=== PATIENT | female | born 1935 | race Caucasian/White ===

== ENCOUNTER 2019-03-25 19:05 | Inpatient (IN) ==
[~2019-03-25 19:05] MED LIST: D5% in Water 1,000 ML IVC PRN; Dextrose Gel 15 GM/37.5 ML TUBE PO PRN
[2019-03-25 20:24] LABS: Basophils % 0.3 %; Eosinophils % 0.4 %; Hematocrit 26.3 % (35.3-44.9); Immature Granulocytes % 0.8 % (0-4); Lymphocytes # 1.3 K/mcL (0.6-4.6); Lymphocytes % 12.4 %; Mean Corpuscular HGB Conc 30.4 g/dL (31.6-35.5); Mean Corpuscular Hemoglobin 27.7 pg (28.0-33.3); Mean Platelet Volume 10.5 fL (9.4-12.4); Monocytes # 1.3 K/mcL (0.0-1.3); Monocytes % 11.6 %; Platelet Count 199 K/mcL (140-400); Red Blood Count 2.89 M/mcL (3.82-4.97); Red Cell Distribution Width 14.2 % (11.5-14.5); Segmented Neutrophils % 74.5 %; White Blood Count 10.8 K/mcL (4.3-11.1)
[2019-03-25 20:28] LABS: Bilirubin,Urine Negative (Negative); Blood,Urine Negative (Negative); Clarity,Urine Clear (Clear); Color,Urine Yellow (Yellow); Glucose,Urine (UA) Normal (Normal); Ketones,Urine Negative (Negative); Leukocyte Esterase,Urine Small (Negative); Nitrite,Urine Negative (Negative); PH,Urine 5.5 pH Units (5.0-8.0); Protein,Urine Negative (Neg-Trace); Specific Gravity,Urine 1.019 (1.010-1.025); Urobilinogen,Urine Normal (Normal)
[2019-03-25 20:29] LABS: Bacteria,Urine None Seen per hpf (None-Few); Hyaline Casts,Urine Few per lpf (None-Few); Squamous Epithelial Cell,Urine Many per lpf (None-Few); WBC,Urine 0-3 per hpf (0-3)
[2019-03-25 20:37] LABS: Alanine Aminotransferase 10 Units/L (7-52); Albumin/Globulin Ratio 1.6 (1.1-2.2); Alkaline Phosphatase 70 Units/L (34-104); Aspartate Amino Transferase 13 Units/L (13-39); BUN/Creatinine Ratio 22 (6-26); Bilirubin,Direct 0.1 mg/dL (0.0-0.2); Bilirubin,Indirect 0.3 mg/dL (0.0-1.2); Bilirubin,Total 0.4 mg/dL (0.3-1.0); Blood Urea Nitrogen 38 mg/dL (8-23); Calcium 9.3 mg/dL (8.6-10.3); Carbon Dioxide 25 mEq/L (23-29); Chloride 100 mEq/L (98-107); Globulin 2.5 g/dL (2.4-3.5); Glucose 193 mg/dL (70-105); Lipase 44 Units/L (11-82); Magnesium 1.8 mg/dL (1.6-2.6); Osmolality,Calculated 296 (280-300); Phosphorous 4.1 mg/dL (2.7-4.5); Sodium 136 mEq/L (136-145); Total Protein 6.5 g/dL (6.4-8.9); Troponin I < 0.03 ng/mL (< 0.04); eGFR For African Americans 33 (> 60); eGFR For Non-African Americans 28 (> 60)
--- NOTE | 2019-03-25 20:43 | Emergency Department Note ---
Disposition Clinical Impression: STEPHIE (acute kidney injury) Afib Qualifiers: Atrial fibrillation type: chronic Qualified Code(s): I48.2 - Chronic atrial fibrillation Anemia Qualifiers: Anemia type: unspecified type Qualified Code(s): D64.9 - Anemia, unspecified Chest pain Qualifiers: Chest pain type: unspecified Qualified Code(s): R07.9 - Chest pain, unspecified Disposition: Admitted As Inpatient Condition: Good Referrals: Isabel Fajardo CNP [Primary Care Provider] - Forms: ED Satisfaction Letter Time of Disposition: 20:50 General Adult HPI - General Chief complaint: ED Weakness Stated complaint: weakness Time Seen by Provider: 03/25/19 19:13 Source: patient Limitations: no limitations Nursing Notes Reviewed: Yes Vital Signs Reviewed: Yes - History of Present Illness HPI Narrative: Female patient presenting to return complaining of a generalized weakness. Has a history of an SD with a stent placed. Been going on for around 6 months. Has gotten worse over the past 8 weeks. She does report cough but denies any s hortness of breath does have a history of COPD. Reports occasional chest pain. She states it feels like a pressure in the center of chest. States she always has this pain got a little worse tonight. No history of DVT or PE no history of a fever. Just generalized weakness. States that she feels like her legs might give out on her as well as her knees. Pain Scale: 0 - Related Data Home Medications Medication Instructions Recorded Confirmed Acetaminophen [Tylenol] 650 mg PO Q4HR PRN 04/16/15 05/17/16 Ascorbic Acid [Vitamin C] 500 mg PO DAILY 04/16/15 05/17/16 Aspirin 81 mg PO DAILY 04/16/15 05/17/16 Calcium Carbonate/Vitamin D3 2 tab PO DAILY 04/16/15 05/17/16 [Calcium 600 + D Tablet] Cyanocobalamin (B-12) [Vitamin B12] 1,000 mcg SQ QMONTH 04/16/15 05/17/16 Diltiazem HCl [Cardizem] 240 mg PO DAILY 04/16/15 05/17/16 Duloxetine [Cymbalta] 30 mg PO DAILY 04/16/15 05/17/16 Ferrous Sulfate 325 mg PO Q48H 04/16/15 05/17/16 Magnesium 200 mg PO DAILY 04/16/15 05/17/16 Metoprolol [Lopressor] 25 mg PO BID 04/16/15 05/17/16 Pravastatin Sodium [Pravachol] 40 mg PO DAILY 04/16/15 05/17/16 Warfarin [Coumadin] 1 mg PO DAILY 04/16/15 05/17/16 Warfarin [Coumadin] 2.5 mg PO AD 04/16/15 05/17/16 Zoledronic Acid (Reclast) [Reclast] 5 mg IVPB Q12M 04/16/15 11/17/15 Cholecalciferol (Vitamin D3) 1,000 unit PO DAILY 11/17/15 05/17/16 [Vitamin D] Losartan [Cozaar] 25 mg PO DAILY 11/17/15 05/17/16 Spironolactone 05/17/16 risperiDONE [Risperidone] 0.5 mg PO DAILY 05/17/16 05/17/16 Previous Rx's Medication Instructions Recorded diazePAM [Valium] 2 mg PO TID #10 tablet 09/24/16 predniSONE [PredniSONE] 20 mg PO DAILY #3 tablet 09/24/16 Allergies Allergy/AdvReac Type Severity Reaction Status Date / Time glimepiride [From Amaryl] Allergy See Verified 02/23/19 15:30 Comments gabapentin AdvReac See Verified 02/23/19 15:30 Comments All systems ED: reviewed and negative except as stated. Review of Systems: As Per HPI Constitutional: Denies: fever, chills Cardiovascular: Reports: chest pain (Occasional. Feels like a soreness in her chest. Got worse tonight but now has resolved. Again she states is back to her baseline soreness.). Denies: palpitations Respiratory: Reports: cough. Denies: dyspnea Gastrointestinal: Reports: abdominal pain (Bloating feeling in the upper abdomen constant). Denies: nausea (. Been going on for several years.), vomiting, diarrhea Musculoskeletal: Reports: back pain (Chronic), myalgia (Chronic) Neurological: Reports: weakness Endocrine: Reports: fatigue Past Medical History - Past Medical History Attestation: Yes The following information was validated with the patient. Source: patient Medical history: Reports: atrial fibrillation, COPD, diabetes, fibromyalgia, hypertension, osteoporosis Surgical history: Reports: no surgical history Psychiatric history: Reports: depression - Social History Smoking Status: Former smoker Smokeless Tobacco Status: No Alcohol use: Reports: none Drug use: Reports: none Physical Exam - General Limitations: no limitations General appearance: alert - Head Head exam: atraumatic, normocephalic, normal inspection - Eye Eye exam: Present: normal appearance, PERRL, EOMI - ENT ENT exam: normal exam, normal oropharynx, mucous membranes moist - Neck Neck exam: Present: normal inspection, full ROM, trachea midline - Chest Chest inspection: Present: normal inspection, symmetric chest wall rise - Respiratory Respiratory exam: Present: normal lung sounds bilaterally. Absent: respiratory distress, accessory muscle use - Cardiovascular Cardiovascular exam: Present: bradycardia, irregular rhythm, normal heart sounds - Abdominal Exam Abdominal exam: Present: soft, Non-Tender. Absent: tenderness, distention, guarding, rebound, rigidity, organomegaly, Barros's sign, Rovsing's sign, tenderness at McBurney's Point - Extremities Exam Extremities exam: Present: normal inspection, full ROM, normal capillary refill, other (Myalgias throughout.). Absent: pedal edema - Back Exam Back exam: Present: normal inspection, full ROM. Absent: tenderness - Neurological Exam Neurological exam: Present: alert, oriented X3, other (Alert and oriented 3. Mentating appropriately. Tracks me well. Grossly moving all 4 extremities without weakness.) - Psychiatric Psychiatric exam: Present: normal affect, normal mood - Skin Skin exam: Present: warm, dry, intact, normal color Course Course Narrative: Patient with chronic anemia with anemia that is worse than normal. Did have a positive Hemoccult by her PCP previously. No colonoscopy. Is on Coumadin. Reporting generalized weakness. Reports a cough but no shortness of breath. No history of DVT or PE. States that the symptoms have been going on for 6 months but it has been getting worse. No syncope. No trauma. Has not fallen and struck her head. Did report some chest pain that is resolved at this time. Now saying it is sore on her chest but this is normal for her. Does report a cough consistent with her COPD. No fevers. Patient with a normal troponin. No signs of acute ischemia on EKG. We will admit to the hospital for further evaluation of her anemia A. fib with mild bradycardia but normotensive. - Consultations Consultation #1: Dr Louis accepted Pt in stable condition. Time: 20:51 Vital Signs Temperature 98.0 F 03/25/19 19:06 Pulse Rate 52 03/25/19 19:06 Respiratory Rate 12 03/25/19 19:06 Blood Pressure 162/107 03/25/19 19:06 O2 Sat by Pulse Oximetry 95 03/25/19 19:06 Temperature 98.0 F 03/25/19 19:06 Pulse Rate 52 03/25/19 19:06 Respiratory Rate 12 03/25/19 19:06 Blood Pressure 162/107 03/25/19 19:06 O2 Sat by Pulse Oximetry 95 03/25/19 19:06 Oxygen Delivery Oxygen Delivery Room Air Medical Decision Making - Medical Records Medical records reviewed: Yes I reviewed the patient's medical records. - Lab Data Lab results reviewed: Yes I reviewed the patient's lab results. Result diagrams: 03/25/19 20:04 03/25/19 20:04 Lab Results 03/25/19 03/25/19 03/25/19 Range/Units 20:04 20:04 20:04 WBC 10.8 (4.3-11.1) K/mcL RBC 2.89 L (3.82-4.97) M/mcL Hgb 8.0 L (11.5-15.4) g/dL Hct 26.3 L (35.3-44.9) % MCV 91.0 (83.0-100.0) fL MCH 27.7 L (28.0-33.3) pg MCHC 30.4 L (31.6-35.5) g/dL RDW 14.2 (11.5-14.5) % Plt Count 199 (140-400) K/mcL MPV 10.5 (9.4-12.4) fL Immature Gran % 0.8 (0-4) % Seg Neutrophils % 74.5 % Lymphocytes % 12.4 % Monocytes % 11.6 % Eosinophils % 0.4 % Basophils % 0.3 % Neutrophils # 8.0 (1.6-8.9) K/mcL Lymphocytes # 1.3 (0.6-4.6) K/mcL Monocytes # 1.3 (0.0-1.3) K/mcL Eosinophils # 0.0 (0.0-0.6) K/mcL Basophils # 0.0 (0.0-0.2) K/mcL Sodium 136 (136-145) mEq/L Potassium 4.0 (3.5-5.1) mEq/L Chloride 100 (98-107) mEq/L Carbon Dioxide 25 (23-29) mEq/L BUN 38 H (8-23) mg/dL Creatinine 1.75 H (0.60-1.20) mg/dL Est GFR ( Amer) 33 L (> 60) Est GFR (Non-Af Amer) 28 L (> 60) BUN/Creatinine Ratio 22 (6-26) Glucose 193 H (70-105) mg/dL Calculated Osmolality 296 (280-300) Lactic Acid 2.0 (0.5-2.2) mmol/L Calcium 9.3 (8.6-10.3) mg/dL Phosphorus 4.1 (2.7-4.5) mg/dL Magnesium 1.8 (1.6-2.6) mg/dL Total Bilirubin 0.4 (0.3-1.0) mg/dL Direct Bilirubin 0.1 (0.0-0.2) mg/dL Indirect Bilirubin 0.3 (0.0-1.2) mg/dL AST 13 (13-39) Units/L ALT 10 (7-52) Units/L Alkaline Phosphatase 70 (34-104) Units/L Troponin I < 0.03 (< 0.04) ng/mL B-Natriuretic Peptide (Less than 100) pg/mL Serum Total Protein 6.5 (6.4-8.9) g/dL Albumin 4.0 (3.5-5.7) g/dL Globulin 2.5 (2.4-3.5) g/dL Albumin/Globulin Ratio 1.6 (1.1-2.2) Lipase 44 (11-82) Units/L Urine Color (Yellow) Urine Clarity (Clear) Urine pH (5.0-8.0) pH Units Ur Specific Bly (1.010-1.025) Urine Protein (Neg-Trace) mg/dL Urine Glucose (UA) (Normal) mg/dL Urine Ketones (Negative) mg/dL Urine Blood (Negative) Urine Nitrite (Negative) Urine Bilirubin (Negative) Urine Urobilinogen (Normal) mg/dL Ur Leukocyte Esterase (Negative) Urine Microscopic RBC (0-3) per hpf Urine Microscopic WBC (0-3) per hpf Ur Squamous Epith Cells (None-Few) per lpf Urine Bacteria (None-Few) per hpf Hyaline Casts (None-Few) per lpf Ur Culture Indicated? (NO) 03/25/19 03/25/19 Range/Units 20:04 20:19 WBC (4.3-11.1) K/mcL RBC (3.82-4.97) M/mcL Hgb (11.5-15.4) g/dL Hct (35.3-44.9) % MCV (83.0-100.0) fL MCH (28.0-33.3) pg MCHC (31.6-35.5) g/dL RDW (11.5-14.5) % Plt Count (140-400) K/mcL MPV (9.4-12.4) fL Immature Gran % (0-4) % Seg Neutrophils % % Lymphocytes % % Monocytes % % Eosinophils % % Basophils % % Neutrophils # (1.6-8.9) K/mcL Lymphocytes # (0.6-4.6) K/mcL Monocytes # (0.0-1.3) K/mcL Eosinophils # (0.0-0.6) K/mcL Basophils # (0.0-0.2) K/mcL Sodium (136-145) mEq/L Potassium (3.5-5.1) mEq/L Chloride (98-107) mEq/L Carbon Dioxide (23-29) mEq/L BUN (8-23) mg/dL Creatinine (0.60-1.20) mg/dL Est GFR ( Amer) (> 60) Est GFR (Non-Af Amer) (> 60) BUN/Creatinine Ratio (6-26) Glucose (70-105) mg/dL Calculated Osmolality (280-300) Lactic Acid (0.5-2.2) mmol/L Calcium (8.6-10.3) mg/dL Phosphorus (2.7-4.5) mg/dL Magnesium (1.6-2.6) mg/dL Total Bilirubin (0.3-1.0) mg/dL Direct Bilirubin (0.0-0.2) mg/dL Indirect Bilirubin (0.0-1.2) mg/dL AST (13-39) Units/L ALT (7-52) Units/L Alkaline Phosphatase (34-104) Units/L Troponin I (< 0.04) ng/mL B-Natriuretic Peptide 428 H (Less than 100) pg/mL Serum Total Protein (6.4-8.9) g/dL Albumin (3.5-5.7) g/dL Globulin (2.4-3.5) g/dL Albumin/Globulin Ratio (1.1-2.2) Lipase (11-82) Units/L Urine Color Yellow (Yellow) Urine Clarity Clear (Clear) Urine pH 5.5 (5.0-8.0) pH Units Ur Specific Bly 1.019 (1.010-1.025) Urine Protein Negative (Neg-Trace) mg/dL Urine Glucose (UA) Normal (Normal) mg/dL Urine Ketones Negative (Negative) mg/dL Urine Blood Negative (Negative) Urine Nitrite Negative (Negative) Urine Bilirubin Negative (Negative) Urine Urobilinogen Normal (Normal) mg/dL Ur Leukocyte Esterase Small H (Negative) Urine Microscopic RBC 3-5 H (0-3) per hpf Urine Microscopic WBC 0-3 (0-3) per hpf Ur Squamous Epith Cells Many H (None-Few) per lpf Urine Bacteria None Seen (None-Few) per hpf Hyaline Casts Few (None-Few) per lpf Ur Culture Indicated? YES A (NO) - Radiology Data Radiology results reviewed: Yes I reviewed the patient's radiology results. - EKG Data EKG #1 EKG attestation: Yes I reviewed and interpreted this EKG. EKG results narrative: A. fib at a rate of 43. MI interval was not measured. QRS duration is 88. QT is 451. QTC is 382. No signs of acute ischemia. Good R-wave progression. No significant change from previous EKG dated 09/24/2016.
[2019-03-25] MEDS ORDERED: 0.9 % Sodium Chloride 1,000 ML IVC SCH (21:00)
--- NOTE | 2019-03-25 21:00 | Internal Med History&Physical ---
<Fortino Morton - Last Filed: 03/26/19 04:19> Date of Encounter: 03/26/19 Time of Encounter: 21:54 Internal Medicine - H&P: HPI Chief complaint: weakess Admitted From: Emergency Dept Plans for Post Hospital Care: Home History of present illness: Ms. Singer is a 83 year old female with past medical history of atrial fibrillation, COPD, diabetes, fibromyalgia, hypertension, osteoporosis, polymyalgia rheumatica presents emergency department with complaint of weakness. Patient states that she has been chronically weak for approximately the past 6 months has been progressively worsening in the past weeks. Patient states symptoms are mainly present on exertion with no exacerbating or relieving fact ors. Weakness is diffuse with no focal deficits. She does get around with a cane. She has never experienced symptoms like this in the past. Patient denies any symptoms of fevers, chills, chest pains although does admit to some dyspnea on exertion. She has home oxygen dependent with 2 L at night for her COPD. She states her oxygen does help her. She has a little bit of nausea without vomitin g, denies urinary symptoms. She also states that bowel movements have been normal for the past couple months. She was instructed to take iron supplementation however did not tolerate this due to GI upset. She states while she was taking it, she did not notice dark stools but since taking herself off iron approximately 4 weeks ago she has noticed a liquid yellow color. She also admits to some dizziness, lightheadedness, particularly after bowel movements. She also states that she has had episodes where she feels like she might pass out but is never lost consciousness and did not hit her head. She does take Coumadin for her atrial fibrillation as well as aspirin and prednisone. In the emergency room, vital signs were significant for a heart rate of 52, respiratory rate 12. Per family, patient's heart rate was low when EMS arrived in the 40s. Blood pressure stable at 162/107 she was tolerating 95% oxygen on room air. Lab results were significant for a hemoglobin of 8.0 which is decreased from baseline around 10. INR was therapeutic at 2.6, BUNs/creatinine of 38/1.75 which is increased from baseline. Troponin was within normal limits and BNP was mildly elevated at 428. Urinalysis shows no signs of infection. Chest x-ray shows no acute disease. At time of my interview, patient states that majority of her symptoms have resolved. She still does admit to some diffuse weakness which is always present. She is not currently short of breath and is having no abdominal sym ptoms. Past medical history: As above Past surgical history: Denies Social history: Former smoker, quit in , denies alcohol or drug use Family history: Noncontributory Past Med Surg Social Fam HX - Past Medical History Medical history: atrial fibrillation, COPD, diabetes, fibromyalgia, hypertension, osteoporosis Psychiatric history: depression - Past Surgical History Surgical History: no surgical history - Social History Smoking Status: Former smoker Smokeless Tobacco Status: No Alcohol use: none Drug use: none - Family History Mother Hx Family Cardiac Disorders: Yes Father Hx Family Cardiac Disorders: Yes Internal Medicine - H&P: Meds Acetaminophen [Tylenol] 650 mg PO Q4HR PRN 04/16/15 [History] Ascorbic Acid [Vitamin C] 500 mg PO DAILY 04/16/15 [History] Aspirin 81 mg PO DAILY 04/16/15 [History] Calcium Carbonate/Vitamin D3 [Calcium 600 + D Tablet] 600 mg PO BID 04/16/15 [History] Cyanocobalamin (B-12) [Vitamin B12] 1,000 mcg SQ QMONTH 04/16/15 [History] Diltiazem HCl [Cardizem] 240 mg PO DAILY 04/16/15 [History] Duloxetine [Cymbalta] 30 mg PO DAILY 04/16/15 [History] Ferrous Sulfate 325 mg PO Q48H 04/16/15 [History] Magnesium 500 mg PO DAILY 04/16/15 [History] Metoprolol [Lopressor] 25 mg PO BID 04/16/15 [History] Pravastatin Sodium [Pravachol] 40 mg PO DAILY 04/16/15 [History] Warfarin [Coumadin] 1 mg PO DAILY 04/16/15 [History] Warfarin [Coumadin] 2 mg PO DAILY 04/16/15 [History] Cholecalciferol (Vitamin D3) [Vitamin D] 1,000 unit PO DAILY 11/17/15 [History] Losartan [Cozaar] 25 mg PO DAILY 11/17/15 [History] Spironolactone 25 mg PO DAILY 05/17/16 [History] risperiDONE [Risperidone] 0.25 mg PO DAILY 05/17/16 [History] Furosemide [Lasix] 40 mg PO DAILY 03/25/19 [History] Glimepiride [Amaryl] 1 mg PO DAILY 03/25/19 [History] Pantoprazole Sodium [Protonix] 40 mg PO DAILY 03/25/19 [History] raNITIdine HCl [Ranitidine HCl] 300 mg PO DAILY 03/25/19 [History] Allergy/AdvReac Type Severity Reaction Status Date / Time glimepiride [From Amaryl] Allergy See Verified 03/25/19 20:58 Comments gabapentin AdvReac See Verified 03/25/19 20:58 Comments All Systems PM: A 10-system review of systems was performed and is negative for pertinent findings except as documented above in the HPI. Review of systems: - Constitutional: Admits to weakness. Denies fevers, chills, weight loss, generalized fatigue - Head/Neck: Denies KIM, neck stiffness - EENT: Denies vision changes/blurriness auditory changes, rhinorrhea, congestion, sore throat, odynaphagia - CVS: Denies chest pain, palpitations, orthopnea, edema, PND, - Pulm: Admits to dyspnea on exertion. Denies SOB, cough, sputum, hematemesis, wheezing - GI: Admits to some nausea. Denies abdominal pain, anorexia, vomiting, diarrhea, constipation, melena - : Denies dysuria, increased frequency, urgency, hematuria, - Heme: Denies ease of bleeding or bruising - MSK: Denies joint pain, limited ROM - Skin: Denies rashes, ulcers, color changes, - Neuro: Denies KIM, paresthesias, focal deficits, ataxia, - Constitutional Vitals: Temp Pulse Resp BP Pulse Ox 98.0 F 62 22 169/59 93 03/25/19 19:06 03/25/19 20:57 03/25/19 20:57 03/25/19 20:57 03/25/19 20:57 Exam: Gen.: Vitals noted. No acute distress. AAOx3, resting comfortably in bed. Mildly pale HEENT: PERRL/EOMI, oropharynx clear, Normocephalic, atraumatic, MMM Cardiac: Regular rhythm, mildly tachycardic. Faint systolic murmur present. +S1/S2, No BLE edema Pulmonary: CTA bilaterally, no wheezes, rales or rhonchi, equal chest expansion, unlabored breathing Abdomen: soft, mild diffuse tenderness to palpation, BS noted, no guarding, no palpable HSM Skin: warm and dry, no visible lesions. MSK: ROM intact, no joint swelling noted, gait no assessed while in bed. Non tender calf or clubbing Neuro: A&Ox3, moves all extremities, no focal deficits, sensation intact, moves all 4 extremities with equal strength bilaterally. Psych: Appropriate mood and behavior, AOx3 Internal Med - H&P Results - Labs CBC & Chem 7: 03/25/19 20:04 03/25/19 20:04 Labs: Short CBC 03/25/19 Range/Units 20:04 WBC 10.8 (4.3-11.1) K/mcL Hgb 8.0 L (11.5-15.4) g/dL Hct 26.3 L (35.3-44.9) % Plt Count 199 (140-400) K/mcL Neutrophils # 8.0 (1.6-8.9) K/mcL BMP 03/25/19 20:04 Sodium 136 Potassium 4.0 Chloride 100 Carbon Dioxide 25 BUN 38 H Creatinine 1.75 H Glucose 193 H Calcium 9.3 Cardiac Enzymes 03/25/19 Range/Units 20:04 Troponin I < 0.03 (< 0.04) ng/mL Liver Function 03/25/19 Range/Units 20:04 Total Bilirubin 0.4 (0.3-1.0) mg/dL Direct Bilirubin 0.1 (0.0-0.2) mg/dL AST 13 (13-39) Units/L ALT 10 (7-52) Units/L Alkaline Phosphatase 70 (34-104) Units/L Albumin 4.0 (3.5-5.7) g/dL Urine 03/25/19 Range/Units 20:19 Urine Color Yellow (Yellow) Urine Clarity Clear (Clear) Urine pH 5.5 (5.0-8.0) pH Units Ur Specific [place] 1.019 (1.010-1.025) Urine Protein Negative (Neg-Trace) mg/dL Urine Glucose (UA) Normal (Normal) mg/dL - Impressions ITS Impressions Chest X-Ray 03/25/19 19:45 IMPRESSION: No acute cardiopulmonary disease. Stable cardiomegaly. D/ / Lidia Boucher MD / Lidia Boucher MD Interpreting Provider: Lidia Boucher MD - Assessment and Plan (1) Anemia Current Visit: Yes Status: Suspected Assessment and plan: - Patient presented with symptomatic anemia with hemoglobin of 8.0 - Baseline appears to be 10-12 - Patient reports she is postmenopausal presentation however took herself off approximately 4 weeks ago - She has also high risk for GI source as patient is on Coumadin, aspirin, chron ic prednisone - Known history of GERD and does take home Protonix and ranitidine - Patient denies any gross melanotic stools or bright red blood per rectum - Hemodynamically stable - Most recent EGD/colonoscopy performed in 2011 as outpatient. Findings include hyperplastic polyp. Patient has refused subsequent examinations Plan - We will continue monitor and type and screen - Transfuse if less than 8 - We will start Protonix IV twice a day - Hold antiplatelets and anticoagulation - Clear liquid diet with nothing by mouth at midnight - GI consult for possible endoscopy Qualifiers: Anemia type: iron deficiency Iron deficiency anemia type: chronic blood loss Qualified Code(s): D50.0 - Iron deficiency anemia secondary to blood loss (chronic) (2) Pre-syncope Current Visit: Yes Status: Acute Assessment and plan: - Patient reports previous history of presyncopal episodes with lightheadedness, dizziness - This may be multifactorial including symptomatic anemia, bradycardia - Patient currently asymptomatic - Electrolytes within normal limits - She also does have an acute kidney injury with suspected poor oral intake which may be contributing to her symptoms. - She also admits to episodes of what sound like vasovagal following bowel movements Plan - We will obtain echocardiogram - Treatment for anemia as above - Further management for bradycardia pending results of echocardiogram (3) Bradycardia Current Visit: Yes Status: Acute Assessment and plan: As above Patient is not demonstrating signs of ischemia with normal troponin, unchanged EKG. Hold AV reese blockers- home medications of metoprolol and Cardizem Echocardiogram (4) Diabetes mellitus Current Visit: Yes Status: Chronic Assessment and plan: - Blood sugar on presentation 193 - Most recent A1c as outpatient of 6.2% - We will start every 6 hours Accu-Cheks while nothing by mouth with sliding scale insulin coverage Qualifiers: Diabetes mellitus type: type 2 Diabetes mellitus fpc insulin use: without fpc use Diabetes mellitus complication status: without complication Qualified Code(s): E11.9 - Type 2 diabetes mellitus without complications (5) GERD (gastroesophageal reflux disease) Current Visit: Yes Status: Chronic Assessment and plan: - Chronic may be contributing to patient's symptoms - PPI as above Qualifiers: Esophagitis presence: without esophagitis Qualified Code(s): K21.9 - Gastro-esophageal reflux disease without esophagitis (6) Hypertension Current Visit: Yes Status: Chronic Assessment and plan: Moderately elevated on most recent reading of 157/67 We will continue monitor this time and not start antihypertensives in the setting of possible GI bleed Qualifiers: Hypertension type: essential hypertension Qualified Code(s): I10 - Essential (primary) hypertension (7) STEPHIE (acute kidney injury) Current Visit: Yes Status: Acute Assessment and plan: BUNs/creatinine of 38/1.75 Baseline creatinine appears to be around 1-1.1 Suspect this may be prerenal in etiology, but possible blood loss Urinalysis shows no evidence of proteinuria Patient getting fluids from the emergency department, continue monitor Holding nephrotoxic medications (8) Afib Current Visit: Yes Status: Chronic Assessment and plan: Chronic atrial fibrillation without RVR Anticoagulated at home on Coumadin INR therapeutic at 2.6 on admission Also on home Cardizem as well as metoprolol Plan We will hold home Coumadin in setting of anemia Hold home AV reese blockers due to bradycardia as above May need dose adjustment upon discharge Qualifiers: Atrial fibrillation type: chronic Qualified Code(s): I48.2 - Chronic atrial fibrillation (9) DVT prophylaxis Current Visit: Yes Status: Acute Assessment and plan: SCDs in the setting of anemia - Time Spent With Patient Total time spent is greater than 50% in coordination of care (as documented) at patient's floor/unit and/or counseling patient: <Etselita Louis Comfort - Last Filed: 03/26/19 05:41> Date of Encounter: 03/25/19 Internal Medicine - H&P: HPI History of present illness: Ms. Singer is a 83 year old female All Systems PM: A 10-system review of systems was performed and is negative for pertinent findings except as documented above in the HPI. - Constitutional Vitals: Temp Pulse Resp BP Pulse Ox 98.2 F 77 16 165/71 95 03/26/19 03:21 03/26/19 03:21 03/26/19 03:21 03/26/19 03:21 03/26/19 03:21 Internal Med - H&P Results - Labs CBC & Chem 7: 03/26/19 04:50 03/25/19 20:04 Labs: Short CBC 03/25/19 03/26/19 Range/Units 20:04 04:50 WBC 10.8 8.9 (4.3-11.1) K/mcL Hgb 8.0 L 7.6 L (11.5-15.4) g/dL Hct 26.3 L 25.5 L (35.3-44.9) % Plt Count 199 191 (140-400) K/mcL Neutrophils # 8.0 6.6 (1.6-8.9) K/mcL BMP 03/25/19 20:04 Sodium 136 Potassium 4.0 Chloride 100 Carbon Dioxide 25 BUN 38 H Creatinine 1.75 H Glucose 193 H Calcium 9.3 Cardiac Enzymes 03/25/19 Range/Units 20:04 Troponin I < 0.03 (< 0.04) ng/mL Liver Function 03/25/19 Range/Units 20:04 Total Bilirubin 0.4 (0.3-1.0) mg/dL Direct Bilirubin 0.1 (0.0-0.2) mg/dL AST 13 (13-39) Units/L ALT 10 (7-52) Units/L Alkaline Phosphatase 70 (34-104) Units/L Albumin 4.0 (3.5-5.7) g/dL Urine 03/25/19 Range/Units 20:19 Urine Color Yellow (Yellow) Urine Clarity Clear (Clear) Urine pH 5.5 (5.0-8.0) pH Units Ur Specific [place] 1.019 (1.010-1.025) Urine Protein Negative (Neg-Trace) mg/dL Urine Glucose (UA) Normal (Normal) mg/dL - Impressions ITS Impressions Chest X-Ray 03/25/19 19:45 IMPRESSION: No acute cardiopulmonary disease. Stable cardiomegaly. D/ / 03/25/2019 21:22:48 Lidia Boucher MD / eddy Interpreting Provider: Lidia Boucher MD - Time Spent With Patient Total time spent is greater than 50% in coordination of care (as documented) at patient's floor/unit and/or counseling patient: - Attending Attestation on 03/25/19 I performed a history and physical examination of the patient and discussed his management with the resident. I reviewed the residents note and agree with the documented findings and plan of care
[2019-03-25 21:36] LABS: INR 2.6; Prothrombin Time 29.6 Seconds (9.4-12.1)
--- NOTE | 2019-03-25 21:50 | Emergency Department Note ---
Disposition Clinical Impression: STEPHIE (acute kidney injury) Afib Qualifiers: Atrial fibrillation type: chronic Qualified Code(s): I48.2 - Chronic atrial fibrillation Anemia Qualifiers: Anemia type: unspecified type Qualified Code(s): D64.9 - Anemia, unspecified Chest pain Qualifiers: Chest pain type: unspecified Qualified Code(s): R07.9 - Chest pain, unspecified Disposition: Admitted As Inpatient Condition: Good Time of Disposition: 21:50 General Adult HPI - General Chief complaint: ED Weakness Stated complaint: weakness Time Seen by Provider: 03/25/19 19:13 Source: patient Limitations: no limitations - History of Present Illness Pain Scale: 0 - Related Data Home Medications Medication Instructions Recorded Confirmed Acetaminophen [Tylenol] 650 mg PO Q4HR PRN 04/16/15 03/25/19 Ascorbic Acid [Vitamin C] 500 mg PO DAILY 04/16/15 03/25/19 Aspirin 81 mg PO DAILY 04/16/15 03/25/19 Calcium Carbonate/Vitamin D3 600 mg PO BID 04/16/15 03/25/19 [Calcium 600 + D Tablet] Cyanocobalamin (B-12) [Vitamin B12] 1,000 mcg SQ QMONTH 04/16/15 03/25/19 Diltiazem HCl [Cardizem] 240 mg PO DAILY 04/16/15 03/25/19 Duloxetine [Cymbalta] 30 mg PO DAILY 04/16/15 03/25/19 Ferrous Sulfate 325 mg PO Q48H 04/16/15 03/25/19 Magnesium 500 mg PO DAILY 04/16/15 03/25/19 Metoprolol [Lopressor] 25 mg PO BID 04/16/15 03/25/19 Pravastatin Sodium [Pravachol] 40 mg PO DAILY 04/16/15 03/25/19 Warfarin [Coumadin] 1 mg PO DAILY 04/16/15 03/25/19 Warfarin [Coumadin] 2 mg PO DAILY 04/16/15 03/25/19 Cholecalciferol (Vitamin D3) 1,000 unit PO DAILY 11/17/15 03/25/19 [Vitamin D] Losartan [Cozaar] 25 mg PO DAILY 11/17/15 03/25/19 Spironolactone 25 mg PO DAILY 05/17/16 03/25/19 risperiDONE [Risperidone] 0.25 mg PO DAILY 05/17/16 03/25/19 Furosemide [Lasix] 40 mg PO DAILY 03/25/19 03/25/19 Glimepiride [Amaryl] 1 mg PO DAILY 03/25/19 03/25/19 Pantoprazole Sodium [Protonix] 40 mg PO DAILY 03/25/19 03/25/19 raNITIdine HCl [Ranitidine HCl] 300 mg PO DAILY 03/25/19 03/25/19 Allergies Allergy/AdvReac Type Severity Reaction Status Date / Time glimepiride [From Amaryl] Allergy See Verified 03/25/19 20:58 Comments gabapentin AdvReac See Verified 03/25/19 20:58 Comments Constitutional: Denies: fever, chills Cardiovascular: Reports: chest pain (Occasional. Feels like a soreness in her chest. Got worse tonight but now has resolved. Again she states is back to her baseline soreness.). Denies: palpitations Respiratory: Reports: cough. Denies: dyspnea Gastrointestinal: Reports: abdominal pain (Bloating feeling in the upper abdomen constant). Denies: nausea (. Been going on for several years.), vomiting, diarrhea Musculoskeletal: Reports: back pain (Chronic), myalgia (Chronic) Neurological: Reports: weakness Endocrine: Reports: fatigue Past Medical History - Past Medical History Medical history: Reports: atrial fibrillation, COPD, diabetes, fibromyalgia, hypertension, osteoporosis Surgical history: Reports: no surgical history Psychiatric history: Reports: depression - Social History Smoking Status: Former smoker Smokeless Tobacco Status: No Alcohol use: Reports: none Drug use: Reports: none Physical Exam - General Limitations: no limitations General appearance: alert Course Vital Signs Temperature 98.0 F 03/25/19 19:06 Pulse Rate 52 03/25/19 19:06 Respiratory Rate 12 03/25/19 19:06 Blood Pressure 162/107 03/25/19 19:06 O2 Sat by Pulse Oximetry 95 03/25/19 19:06 Temperature 98.0 F 03/25/19 19:06 Pulse Rate 62 03/25/19 20:57 Respiratory Rate 22 03/25/19 20:57 Blood Pressure 169/59 03/25/19 20:57 O2 Sat by Pulse Oximetry 93 03/25/19 20:57 Oxygen Delivery Oxygen Delivery Room Air Medical Decision Making - Lab Data Result diagrams: 03/25/19 20:04 03/25/19 20:04 Lab Results 03/25/19 03/25/19 03/25/19 Range/Units 20:04 20:04 20:04 WBC 10.8 (4.3-11.1) K/mcL RBC 2.89 L (3.82-4.97) M/mcL Hgb 8.0 L (11.5-15.4) g/dL Hct 26.3 L (35.3-44.9) % MCV 91.0 (83.0-100.0) fL MCH 27.7 L (28.0-33.3) pg MCHC 30.4 L (31.6-35.5) g/dL RDW 14.2 (11.5-14.5) % Plt Count 199 (140-400) K/mcL MPV 10.5 (9.4-12.4) fL Immature Gran % 0.8 (0-4) % Seg Neutrophils % 74.5 % Lymphocytes % 12.4 % Monocytes % 11.6 % Eosinophils % 0.4 % Basophils % 0.3 % Neutrophils # 8.0 (1.6-8.9) K/mcL Lymphocytes # 1.3 (0.6-4.6) K/mcL Monocytes # 1.3 (0.0-1.3) K/mcL Eosinophils # 0.0 (0.0-0.6) K/mcL Basophils # 0.0 (0.0-0.2) K/mcL PT (9.4-12.1) Seconds INR Sodium 136 (136-145) mEq/L Potassium 4.0 (3.5-5.1) mEq/L Chloride 100 (98-107) mEq/L Carbon Dioxide 25 (23-29) mEq/L BUN 38 H (8-23) mg/dL Creatinine 1.75 H (0.60-1.20) mg/dL Est GFR ( Amer) 33 L (> 60) Est GFR (Non-Af Amer) 28 L (> 60) BUN/Creatinine Ratio 22 (6-26) Glucose 193 H (70-105) mg/dL Calculated Osmolality 296 (280-300) Lactic Acid 2.0 (0.5-2.2) mmol/L Calcium 9.3 (8.6-10.3) mg/dL Phosphorus 4.1 (2.7-4.5) mg/dL Magnesium 1.8 (1.6-2.6) mg/dL Total Bilirubin 0.4 (0.3-1.0) mg/dL Direct Bilirubin 0.1 (0.0-0.2) mg/dL Indirect Bilirubin 0.3 (0.0-1.2) mg/dL AST 13 (13-39) Units/L ALT 10 (7-52) Units/L Alkaline Phosphatase 70 (34-104) Units/L Troponin I < 0.03 (< 0.04) ng/mL B-Natriuretic Peptide (Less than 100) pg/mL Serum Total Protein 6.5 (6.4-8.9) g/dL Albumin 4.0 (3.5-5.7) g/dL Globulin 2.5 (2.4-3.5) g/dL Albumin/Globulin Ratio 1.6 (1.1-2.2) Lipase 44 (11-82) Units/L Urine Color (Yellow) Urine Clarity (Clear) Urine pH (5.0-8.0) pH Units Ur Specific [place] (1.010-1.025) Urine Protein (Neg-Trace) mg/dL Urine Glucose (UA) (Normal) mg/dL Urine Ketones (Negative) mg/dL Urine Blood (Negative) Urine Nitrite (Negative) Urine Bilirubin (Negative) Urine Urobilinogen (Normal) mg/dL Ur Leukocyte Esterase (Negative) Urine Microscopic RBC (0-3) per hpf Urine Microscopic WBC (0-3) per hpf Ur Squamous Epith Cells (None-Few) per lpf Urine Bacteria (None-Few) per hpf Hyaline Casts (None-Few) per lpf Ur Culture Indicated? (NO) Blood Type 03/25/19 03/25/19 03/25/19 Range/Units 20:04 20:19 20:58 WBC (4.3-11.1) K/mcL RBC (3.82-4.97) M/mcL Hgb (11.5-15.4) g/dL Hct (35.3-44.9) % MCV (83.0-100.0) fL MCH (28.0-33.3) pg MCHC (31.6-35.5) g/dL RDW (11.5-14.5) % Plt Count (140-400) K/mcL MPV (9.4-12.4) fL Immature Gran % (0-4) % Seg Neutrophils % % Lymphocytes % % Monocytes % % Eosinophils % % Basophils % % Neutrophils # (1.6-8.9) K/mcL Lymphocytes # (0.6-4.6) K/mcL Monocytes # (0.0-1.3) K/mcL Eosinophils # (0.0-0.6) K/mcL Basophils # (0.0-0.2) K/mcL PT (9.4-12.1) Seconds INR Sodium (136-145) mEq/L Potassium (3.5-5.1) mEq/L Chloride (98-107) mEq/L Carbon Dioxide (23-29) mEq/L BUN (8-23) mg/dL Creatinine (0.60-1.20) mg/dL Est GFR ( Amer) (> 60) Est GFR (Non-Af Amer) (> 60) BUN/Creatinine Ratio (6-26) Glucose (70-105) mg/dL Calculated Osmolality (280-300) Lactic Acid (0.5-2.2) mmol/L Calcium (8.6-10.3) mg/dL Phosphorus (2.7-4.5) mg/dL Magnesium (1.6-2.6) mg/dL Total Bilirubin (0.3-1.0) mg/dL Direct Bilirubin (0.0-0.2) mg/dL Indirect Bilirubin (0.0-1.2) mg/dL AST (13-39) Units/L ALT (7-52) Units/L Alkaline Phosphatase (34-104) Units/L Troponin I (< 0.04) ng/mL B-Natriuretic Peptide 428 H (Less than 100) pg/mL Serum Total Protein (6.4-8.9) g/dL Albumin (3.5-5.7) g/dL Globulin (2.4-3.5) g/dL Albumin/Globulin Ratio (1.1-2.2) Lipase (11-82) Units/L Urine Color Yellow (Yellow) Urine Clarity Clear (Clear) Urine pH 5.5 (5.0-8.0) pH Units Ur Specific [place] 1.019 (1.010-1.025) Urine Protein Negative (Neg-Trace) mg/dL Urine Glucose (UA) Normal (Normal) mg/dL Urine Ketones Negative (Negative) mg/dL Urine Blood Negative (Negative) Urine Nitrite Negative (Negative) Urine Bilirubin Negative (Negative) Urine Urobilinogen Normal (Normal) mg/dL Ur Leukocyte Esterase Small H (Negative) Urine Microscopic RBC 3-5 H (0-3) per hpf Urine Microscopic WBC 0-3 (0-3) per hpf Ur Squamous Epith Cells Many H (None-Few) per lpf Urine Bacteria None Seen (None-Few) per hpf Hyaline Casts Few (None-Few) per lpf Ur Culture Indicated? YES A (NO) Blood Type B POSITIVE 03/25/19 Range/Units 20:58 WBC (4.3-11.1) K/mcL RBC (3.82-4.97) M/mcL Hgb (11.5-15.4) g/dL Hct (35.3-44.9) % MCV (83.0-100.0) fL MCH (28.0-33.3) pg MCHC (31.6-35.5) g/dL RDW (11.5-14.5) % Plt Count (140-400) K/mcL MPV (9.4-12.4) fL Immature Gran % (0-4) % Seg Neutrophils % % Lymphocytes % % Monocytes % % Eosinophils % % Basophils % % Neutrophils # (1.6-8.9) K/mcL Lymphocytes # (0.6-4.6) K/mcL Monocytes # (0.0-1.3) K/mcL Eosinophils # (0.0-0.6) K/mcL Basophils # (0.0-0.2) K/mcL PT 29.6 H (9.4-12.1) Seconds INR 2.6 Sodium (136-145) mEq/L Potassium (3.5-5.1) mEq/L Chloride (98-107) mEq/L Carbon Dioxide (23-29) mEq/L BUN (8-23) mg/dL Creatinine (0.60-1.20) mg/dL Est GFR ( Amer) (> 60) Est GFR (Non-Af Amer) (> 60) BUN/Creatinine Ratio (6-26) Glucose (70-105) mg/dL Calculated Osmolality (280-300) Lactic Acid (0.5-2.2) mmol/L Calcium (8.6-10.3) mg/dL Phosphorus (2.7-4.5) mg/dL Magnesium (1.6-2.6) mg/dL Total Bilirubin (0.3-1.0) mg/dL Direct Bilirubin (0.0-0.2) mg/dL Indirect Bilirubin (0.0-1.2) mg/dL AST (13-39) Units/L ALT (7-52) Units/L Alkaline Phosphatase (34-104) Units/L Troponin I (< 0.04) ng/mL B-Natriuretic Peptide (Less than 100) pg/mL Serum Total Protein (6.4-8.9) g/dL Albumin (3.5-5.7) g/dL Globulin (2.4-3.5) g/dL Albumin/Globulin Ratio (1.1-2.2) Lipase (11-82) Units/L Urine Color (Yellow) Urine Clarity (Clear) Urine pH (5.0-8.0) pH Units Ur Specific [place] (1.010-1.025) Urine Protein (Neg-Trace) mg/dL Urine Glucose (UA) (Normal) mg/dL Urine Ketones (Negative) mg/dL Urine Blood (Negative) Urine Nitrite (Negative) Urine Bilirubin (Negative) Urine Urobilinogen (Normal) mg/dL Ur Leukocyte Esterase (Negative) Urine Microscopic RBC (0-3) per hpf Urine Microscopic WBC (0-3) per hpf Ur Squamous Epith Cells (None-Few) per lpf Urine Bacteria (None-Few) per hpf Hyaline Casts (None-Few) per lpf Ur Culture Indicated? (NO) Blood Type Attestation Statement - Attestation Attestation: I reviewed the residents documentation and agree with the residents assessment and plan of care. I have personally had face to face time with the patient. (Brief History, Brief Exam, and MDM) I personally supervised and was present for the león/critical portions of the following procedures completed by the resident: EKG 83 year old female presents to the ED with complaints of weakness and appear to have suffering from a GI bleed and is currenty on coumadin thearpy. Mike has a hgb of 8.0 and an outpatinet postiive hemoccult. Mike has stable vital signs and appears to have an eleveted BUN/GFR. Mike will be admitted to medicine
[2019-03-25] MEDS ORDERED: *HR* Dextrose 50 % in Water (Syg) 50 ML SYRINGE IVP PRN (21:53)
[2019-03-25] MEDS ORDERED: Naloxone 0.4 MG/ML INJ IVP PRN (23:58)
[2019-03-25] MEDS ORDERED: Acetaminophen 325 MG TABLET PO PRN (23:58)
[2019-03-25] MEDS ORDERED: Ondansetron 4 MG/2 ML VIAL IVP PRN (23:59)
[2019-03-26] MEDS: Insulin LISPRO 300 UNITS/3 ML VIAL SQ SCH ×5 (00:03→23:43)
[2019-03-26 05:21] LABS: Basophils % 0.2 %; Eosinophils % 0.4 %; Hematocrit 25.5 % (35.3-44.9); Hemoglobin 7.6 g/dL (11.5-15.4); Immature Granulocytes % 0.3 % (0-4); Lymphocytes # 1.2 K/mcL (0.6-4.6); Lymphocytes % 13.2 %; Mean Corpuscular HGB Conc 29.8 g/dL (31.6-35.5); Mean Corpuscular Hemoglobin 28.1 pg (28.0-33.3); Mean Corpuscular Volume 94.4 fL (83.0-100.0); Mean Platelet Volume 11.2 fL (9.4-12.4); Monocytes # 1.1 K/mcL (0.0-1.3); Monocytes % 12.3 %; Neutrophils # 6.6 K/mcL (1.6-8.9); Platelet Count 191 K/mcL (140-400); Red Cell Distribution Width 14.2 % (11.5-14.5); Segmented Neutrophils % 73.6 %; White Blood Count 8.9 K/mcL (4.3-11.1)
[2019-03-26] MEDS: Pantoprazole 40 MG VIAL IVP SCH ×2 (05:24→18:03)
[2019-03-26 05:31] LABS: INR 2.3; Prothrombin Time 25.9 Seconds (9.4-12.1)
[2019-03-26 05:34] LABS: Activated Partial Thrombo Time 35.7 Seconds (26.0-36.0)
[2019-03-26 05:39] LABS: % Iron Saturation 3 % (15-50); Iron 13 mcg/dL (50-170); Transferrin 332 mg/dL (203-362)
[2019-03-26 05:41] LABS: Calcium 8.8 mg/dL (8.6-10.3); Magnesium 1.7 mg/dL (1.6-2.6); Potassium 3.8 mEq/L (3.5-5.1)
[2019-03-26 06:16] LABS: Folate 18.3 ng/mL (3.0-16.0)
[2019-03-26] MEDS: risperiDONE 0.25 MG TABLET PO SCH (08:40)
[2019-03-26] MEDS ORDERED: dilTIAZem HCl 60 MG TABLET PO SCH (09:00)
--- NOTE | 2019-03-26 12:09 | Gastroenterology Consult Note ---
<Tanya Faith - Last Filed: 03/26/19 12:00> Date of Encounter: 03/26/19 Time of Encounter: 10:00 - Assessment and plan (1) Anemia Current Visit: Yes Status: Acute Assessment and plan: 83 year old female who presents with anemia. She denies any melena or hematochezia. She is on coumadin and INR was 2.3 today. Will hold coumadin one more day and plan for EGD and colonoscopy to rule out upper and lower GI bleed. Iron is low, pt would benefit from IV iron as well, she did not tolerate po iron due to GI upset. Qualifiers: Anemia type: unspecified type Qualified Code(s): D64.9 - Anemia, unspecified (2) Pre-syncope Current Visit: Yes Status: Acute - Time Spent With Patient Total time spent is greater than 50% in coordination of care (as documented) at patient's floor/unit and/or counseling patient: GI History of Present Illness - Data of Consult Patient: new to practice Consult date: 03/26/19 Requesting Physician: Bon Jones MD - Consult Narrative Reason for consult: anemia History of present illness: Ms. Singer is a 83 year old female with past medical history of atrial fibrillation, COPD, diabetes, fibromyalgia, hypertension, osteoporosis, polymyalgia rheumatica. He presented to the emergency department with complaint of weakness. Patient states that she has been chronically weak for approximately the past 6 months has been progressively worsening in the past weeks. Patient states symptoms are mainly present on exertion with no exacerbating or relieving factors. Weakness is diffuse with no focal deficits. She does get around with a cane. She has never experienced symptoms like this in the past. Patient denies any symptoms of fevers, chills, chest pains although does admit to some dyspnea on exertion. She has home oxygen dependent with 2 L at night for her COPD. She states her oxygen does help her. She has a little bit of nausea without vomiting, denies urinary symptoms. She reports occasional episodes of diarrhea but denies any melena or hematochezia. She was instructed to take iron supplementation however did not tolerate this due to GI upset. She states while she was taking it, she did notice dark stools but since taking herself off iron approximately 4 weeks ago she has noticed a yellow color. She also admits to some dizziness, lightheadedness, particularly after bowel movements. She also states that she has had episodes where she feels like she might pass out but is never lost consciousness and did not hit her head. She does take Coumadin for her atrial fibrillation as well as aspirin and prednisone. Most recent INR 2.3, Coumadin is on hold. Anticoagulants: Coumadin NSAIDs: Aspirin Procedures: Colonoscopy 08/02/2012 3 mm: Polyp, internal hemorrhoids. EGD: Acute gastritis, Z line regular, normal duodenum. Past Med Surg Social Fam HX - Past Medical History Medical history: atrial fibrillation, COPD, diabetes, fibromyalgia, hypertension, osteoporosis Psychiatric history: depression - Past Surgical History Surgical History: no surgical history - Social History Smoking Status: Former smoker Smokeless Tobacco Status: No Alcohol use: none Drug use: none - Family History Mother Hx Family Cardiac Disorders: Yes Father Hx Family Cardiac Disorders: Yes Review of Systems: GI: as per [place] [facility]: denies fever, has some chills EYES: denies yellow discoloration ENT: denies pain with swallowing or difficulty swallowing CARDIO: denies chest pain, palpitations RESP: No Shortness of breath with exertion : denies change in color of urine NEURO: weakness HEME: Denies any bruising MS: chronic joint and back pain. DERM: denies rash or itching PSYCH: Denies history of anxiety or depression - Constitutional Vitals: Temp Pulse Resp BP Pulse Ox 99.1 F 108 15 196/70 94 03/26/19 11:06 03/26/19 11:06 03/26/19 11:06 03/26/19 11:06 03/26/19 11:06 Exam: CONSTITUTIONAL:alert, no acute distress.HEAD:normocephalic.EYES:no jau ndice.NECK:no obvious swelling.HEART:regular rate and rhythm, no murmurs.LUNGS:bilateral fair air entry.ABDOMEN:non distended, soft, non tender, no masses palpable, no organomegaly.RECTAL EXA M:Deferred.EXTREMITIES:no clubbing, cyanosis or edema.SKIN:no stigmata of chronic liver disease, pallor noted.NEUROLOGIC:no obvious focal defect. Results - Labs CBC & Chem 7: 03/26/19 04:50 03/26/19 04:50 Labs: Last Result 0703/26/19 03/26/19 04:50 04:50 04:50 Calcium 8.8 Iron 13 L % Saturation 3 L Transferrin 332 Triglycerides 83 Vitamin B12 697 Folate 18.3 H Entire Visit 03/26/19 03/26/19 03/26/19 04:50 04:50 04:50 Hgb 7.6 L Hct 25.5 L PT 25.9 H Folate 18.3 H - ABG ABG results: PT/INR, D-dimer PT 25.9 Seconds (9.4-12.1) H 03/26/19 04:50 - Impressions Impressions Chest X-Ray 03/25/19 19:45 IMPRESSION: No acute cardiopulmonary disease. Stable cardiomegaly. D/ / 03/25/2019 21:22:48 Lidia Boucher MD / eddy Interpreting Provider: Lidia Boucher MD Echocardiogram 03/26/19 21:43 Impressions: LVEF 60-65%. Indeterminate diastolic function. Mild concentric left ventricular hypertrophy. Right ventricular size is mildly dilated with mild systolic dysfunction by Doppler. Bi-atrial enlargement. Mild to moderate mitral regurgitation. Moderate-severe tricuspid regurgitation. Mild pulmonic regurgitation. Severe pulmonary hypertension. Left Ventricular Wall Motion: Rest Echo Findings All wall segments showed normal motion. Findings: Study Quality * Technically adequate exam. ECG Findings * Atrial fibrillation. Left Ventricle * LVEF 60-65%. * Indeterminate diastolic function. * Mild concentric left ventricular hypertrophy. Right Ventricle * Right ventricular size is mildly dilated with mild systolic dysfunction by Doppler. Left Atrium * Severely dilated left atrium. Right Atrium * Severely dilated right atrium. Mitral Valve * Mild-moderate mitral annular calcification * Mitral valve leaflets not well visualized. * Mild-moderate mitral regurgitation. * No mitral stenosis by Doppler. Aortic Valve * No aortic regurgitation. * Aortic valve not well visualized. * No aortic stenosis. Tricuspid Valve * Tricuspid valve not well visualized. * Moderate-severe tricuspid regurgitation. * Estimated RA pressure is 20 mmHg. * Estimated RVSP is 82 mmHg. * Severe pulmonary hypertension. Pulmonic Valve * Pulmonic valve is not well visualized. * No pulmonic stenosis. * Mild pulmonic regurgitation. Pulmonary Artery * Pulmonary artery not well visualized. Aorta * Normally sized aortic root. * Proximal descending thoracic aorta not well visualized. Pericardium * There is no pericardial effusion present. Interatrial Septum * No evidence of PFO by color Doppler. IVC * The IVC is dilated. * < 50% respiratory change. Consult Discharge Plan - Plan Referrals: Isabel Fajardo CNP [Primary Care Provider] - 04/04/19 9:00 am () <Lavern Rico - Last Filed: 03/26/19 17:33> Date of Encounter: 03/26/19 Time of Encounter: 17:40 - Time Spent With Patient Total time spent is greater than 50% in coordination of care (as documented) at patient's floor/unit and/or counseling patient: GI History of Present Illness - Data of Consult Requesting Physician: Bon Jones MD - Consult Narrative History of present illness: Ms. Singer is a 83 year old female - Constitutional Vitals: Temp Pulse Resp BP Pulse Ox 98.7 F 102 16 161/84 96 03/26/19 16:04 03/26/19 16:04 03/26/19 16:04 03/26/19 17:10 03/26/19 16:04 Results - Labs CBC & Chem 7: 03/26/19 04:50 03/26/19 04:50 Labs: Last Result 03/26/19 03/26/19 03/26/19 04:50 04:50 04:50 Calcium 8.8 Iron 13 L % Saturation 3 L Transferrin 332 Triglycerides 83 Vitamin B12 697 Folate 18.3 H Stool Occult Blood 03/26/19 12:45 Calcium Iron % Saturation Transferrin Triglycerides Vitamin B12 Folate Stool Occult Blood Positive A Entire Visit 03/26/19 03/26/19 04:50 04:50 PT 25.9 H Folate 18.3 H - ABG ABG results: PT/INR, D-dimer PT 25.9 Seconds (9.4-12.1) H 03/26/19 04:50 - Impressions Impressions Chest X-Ray 03/25/19 19:45 IMPRESSION: No acute cardiopulmonary disease. Stable cardiomegaly. D/ / 03/25/2019 21:22:48 Lidia Boucher MD / eddy Interpreting Provider: Lidia Boucher MD Echocardiogram 03/26/19 21:43 Impressions: LVEF 60-65%. Indeterminate diastolic function. Mild concentric left ventricular hypertrophy. Right ventricular size is mildly dilated with mild systolic dysfunction by Doppler. Bi-atrial enlargement. Mild to moderate mitral regurgitation. Moderate-severe tricuspid regurgitation. Mild pulmonic regurgitation. Severe pulmonary hypertension. Left Ventricular Wall Motion: Rest Echo Findings All wall segments showed normal motion. Findings: Study Quality * Technically adequate exam. ECG Findings * Atrial fibrillation. Left Ventricle * LVEF 60-65%. * Indeterminate diastolic function. * Mild concentric left ventricular hypertrophy. Right Ventricle * Right ventricular size is mildly dilated with mild systolic dysfunction by Doppler. Left Atrium * Severely dilated left atrium. Right Atrium * Severely dilated right atrium. Mitral Valve * Mild-moderate mitral annular calcification * Mitral valve leaflets not well visualized. * Mild-moderate mitral regurgitation. * No mitral stenosis by Doppler. Aortic Valve * No aortic regurgitation. * Aortic valve not well visualized. * No aortic stenosis. Tricuspid Valve * Tricuspid valve not well visualized. * Moderate-severe tricuspid regurgitation. * Estimated RA pressure is 20 mmHg. * Estimated RVSP is 82 mmHg. * Severe pulmonary hypertension. Pulmonic Valve * Pulmonic valve is not well visualized. * No pulmonic stenosis. * Mild pulmonic regurgitation. Pulmonary Artery * Pulmonary artery not well visualized. Aorta * Normally sized aortic root. * Proximal descending thoracic aorta not well visualized. Pericardium * There is no pericardial effusion present. Interatrial Septum * No evidence of PFO by color Doppler. IVC * The IVC is dilated. * < 50% respiratory change. - Attending Attestation I have personally performed a face to face evaluation on this patient. I have reviewed and agree with the care plan. History and Exam by me shows: Patient since seen denies any blood in her stool. Examination alert and awake not in distress. Abdomen is benign. Assessment: Patient with anemia but no overt GI bleeding. Does has high INR because of her being on Coumadin. Recommendation: EGD colonoscopy on Sunday with an INR less than 1.5
--- NOTE | 2019-03-26 14:39 | Internal Med Progress Note ---
Hospitalist Progress Note - Encounter Date of Encounter: 03/26/19 Time of Encounter: 10:00 - Subjective Interval History: Ms. Singer is a 83 year old female with past medical history of atrial fibrillation on Coumadin for anti coag, COPD, chronic hypoxic respiratory failure on 2 L home oxygen, diabetes, fibromyalgia, hypertension, osteoporosis and polymyalgia rheumatica pt presented to emergency department with complaint of weakness and pre syncopal episodes for weeks. Patient states that she has been chronically weak for approximately the past 6 months has been progressively worsening in the past weeks. Patient states symptoms are mainly present on exertion with no exacerbating or relieving factors. Weakness is diffuse with no focal deficits. She denied any dark colored stools and BRBPR. She was asked to take Iron supplements, however since she did not tolerate them she stop taking Iron tabs. Her labs showed Hb @ 8.0. She was admitted in the hospital and placed her on ekg monitor tech. She was started on IV hydration. She denied any CP / SOB. Still feels weak and lethargic. - Exam Vitals: Temp Pulse Resp BP Pulse Ox 99.1 F 108 15 196/70 94 03/26/19 11:06 03/26/19 11:06 03/26/19 11:06 03/26/19 11:06 03/26/19 11:06 Exam: Gen: Alert, awake, Oriented to time,place and person..Looks weak and lethargic Chest: Diminished breath sounds B/L, No wheezing, No crackles, No rales Heart: S1S2+ RRR No murmurs Abd: Soft, NT, BS +, No organomegaly Ext: No edema, pulses are palpable, No calf tenderness Neuro : No acute focal neuro deficits noticed Skin: No rash. - Assessment and Plan (1) STEPHIE (acute kidney injury) Current Visit: Yes Status: Acute Assessment and Plan: Due to dehydration cont IVF Cr started trending down (2) Anemia Current Visit: Yes Status: Acute Assessment and Plan: Acute blood loss anemia Hb stable @ 7.6 Her Hb was 10.9 in 10/22 GI consulted scheduled for EGD today cont holding Coumadin for now Cont IV PPI (3) Pre-syncope Current Visit: Yes Status: Acute Assessment and Plan: Due to anemia and deconditioning Echo showed LVEF 60-65%, indeterminate diastolic function, severe pulm HTN Moderate to severe TR Will consult Card for further eval (4) Afib Current Visit: Yes Status: Chronic Assessment and Plan: rate fairly controlled cont home med Metoprolol and Cardizem she did not receive her PO Cardizem yet held coumadin for now (5) Diabetes mellitus Current Visit: Yes Status: Chronic Assessment and Plan: on ADA diet and ISS (6) GERD (gastroesophageal reflux disease) Current Visit: Yes Status: Chronic Assessment and Plan: On IV PPI BID (7) Hypertension Current Visit: Yes Status: Chronic Assessment and Plan: Resumed all home meds - Time Spent with Patient Total time spent is greater than 50% in coordination of care (as documented) at patient's floor/unit and/or counseling patient: Internal Medicine: Result - Labs CBC & Chem 7: 03/26/19 04:50 03/26/19 04:50 Labs: Short CBC 03/25/19 03/26/19 Range/Units 20:04 04:50 WBC 10.8 8.9 (4.3-11.1) K/mcL Hgb 8.0 L 7.6 L (11.5-15.4) g/dL Hct 26.3 L 25.5 L (35.3-44.9) % Plt Count 199 191 (140-400) K/mcL Neutrophils # 8.0 6.6 (1.6-8.9) K/mcL BMP 03/25/19 03/26/19 20:04 04:50 Sodium 136 138 Potassium 4.0 3.8 Chloride 100 105 Carbon Dioxide 25 23 BUN 38 H 30 H Creatinine 1.75 H 1.31 H Glucose 193 H 98 Calcium 9.3 8.8 Cardiac Enzymes 03/25/19 Range/Units 20:04 Troponin I < 0.03 (< 0.04) ng/mL Liver Function 03/25/19 Range/Units 20:04 Total Bilirubin 0.4 (0.3-1.0) mg/dL Direct Bilirubin 0.1 (0.0-0.2) mg/dL AST 13 (13-39) Units/L ALT 10 (7-52) Units/L Alkaline Phosphatase 70 (34-104) Units/L Albumin 4.0 (3.5-5.7) g/dL Urine 03/25/19 Range/Units 20:19 Urine Color Yellow (Yellow) Urine Clarity Clear (Clear) Urine pH 5.5 (5.0-8.0) pH Units Ur Specific Willis 1.019 (1.010-1.025) Urine Protein Negative (Neg-Trace) mg/dL Urine Glucose (UA) Normal (Normal) mg/dL - ABG Interpretation ABG results: PT/INR, D-dimer PT 25.9 Seconds (9.4-12.1) H 03/26/19 04:50 - Impressions Impressions Chest X-Ray 03/25/19 19:45 IMPRESSION: No acute cardiopulmonary disease. Stable cardiomegaly. D/ / 03/25/2019 21:22:48 Lidia Boucher MD / eddy Interpreting Provider: Lidia Boucher MD Echocardiogram 03/26/19 21:43 Impressions: LVEF 60-65%. Indeterminate diastolic function. Mild concentric left ventricular hypertrophy. Right ventricular size is mildly dilated with mild systolic dysfunction by Doppler. Bi-atrial enlargement. Mild to moderate mitral regurgitation. Moderate-severe tricuspid regurgitation. Mild pulmonic regurgitation. Severe pulmonary hypertension. Left Ventricular Wall Motion: Rest Echo Findings All wall segments showed normal motion. Findings: Study Quality * Technically adequate exam. ECG Findings * Atrial fibrillation. Left Ventricle * LVEF 60-65%. * Indeterminate diastolic function. * Mild concentric left ventricular hypertrophy. Right Ventricle * Right ventricular size is mildly dilated with mild systolic dysfunction by Doppler. Left Atrium * Severely dilated left atrium. Right Atrium * Severely dilated right atrium. Mitral Valve * Mild-moderate mitral annular calcification * Mitral valve leaflets not well visualized. * Mild-moderate mitral regurgitation. * No mitral stenosis by Doppler. Aortic Valve * No aortic regurgitation. * Aortic valve not well visualized. * No aortic stenosis. Tricuspid Valve * Tricuspid valve not well visualized. * Moderate-severe tricuspid regurgitation. * Estimated RA pressure is 20 mmHg. * Estimated RVSP is 82 mmHg. * Severe pulmonary hypertension. Pulmonic Valve * Pulmonic valve is not well visualized. * No pulmonic stenosis. * Mild pulmonic regurgitation. Pulmonary Artery * Pulmonary artery not well visualized. Aorta * Normally sized aortic root. * Proximal descending thoracic aorta not well visualized. Pericardium * There is no pericardial effusion present. Interatrial Septum * No evidence of PFO by color Doppler. IVC * The IVC is dilated. * < 50% respiratory change. Consult Discharge Plan - Plan Referrals: Isabel Fajardo CNP [Primary Care Provider] - 04/04/19 9:00 am () (2) Anemia Qualifiers: Anemia type: unspecified type Qualified Code(s): D64.9 - Anemia, unspecified (4) Afib Qualifiers: Atrial fibrillation type: chronic Qualified Code(s): I48.2 - Chronic atrial fibrillation (5) Diabetes mellitus Qualifiers: Diabetes mellitus type: type 2 Diabetes mellitus custodial insulin use: without custodial use Diabetes mellitus complication status: without complication Qualified Code(s): E11.9 - Type 2 diabetes mellitus without complications (6) GERD (gastroesophageal reflux disease) Qualifiers: Esophagitis presence: without esophagitis Qualified Code(s): K21.9 - Gastro- esophageal reflux disease without esophagitis (7) Hypertension Qualifiers: Hypertension type: essential hypertension Qualified Code(s): I10 - Essential (primary) hypertension
--- NOTE | 2019-03-26 15:37 | Electrocardiograph Report ---
[address] [address] Test Date: 2019-03-25 Pat Name: Mckayla Singer Department: EXAM21 Room: 3B43 Gender: Frame Changer: : 1935 Requested By: Laurie Sena Order Number: [id number] Reading MD: Edna Valentin Measurements Intervals [place] Rate: 43 P: MA: QRS: 68 QRSD: 88 T: 58 QT: 451 QTc: 382 Interpretive Statements Atrial fibrillation Electronically Signed On 03-26-2019 15:35:36 EDT by Edna Valentin
[2019-03-26] MEDS: Magnesium Oxide 400 MG TABLET PO SCH (16:14)
[2019-03-26] MEDS: Diltiazem CD (24hr) 240 MG CAPSULE PO SCH (16:14)
[2019-03-26] MEDS: Famotidine 20 MG TABLET PO SCH (16:16)
[2019-03-26] MEDS: Aspirin 81 MG TAB.CHEW PO SCH (16:16)
--- NOTE | 2019-03-26 17:45 | Electrocardiograph Report ---
[facility] Test Date: 2019-03-25 Pat Name: Mckayla Singer Department: EXAM21 Room: 3B43 Gender: F Clinical Analyst: : 1935 Requested By: Eladio Tiwari Order Number: [id number] Reading MD: Jim Trivedi Measurements Intervals [place] Rate: 50 P: 0 ND: 169 QRS: 69 QRSD: 86 T: 255 QT: 420 QTc: 383 Interpretive Statements atrial fibrillation Consider right atrial enlargement Nonspecific repol abnormality, inferior leads Minimal ST elevation, lateral leads Electronically Signed On 03-26-2019 17:43:57 EDT by Jim Trivedi
[2019-03-27] MEDS: Insulin LISPRO 300 UNITS/3 ML VIAL SQ SCH ×3 (05:43→23:44)
[2019-03-27] MEDS: Pantoprazole 40 MG VIAL IVP SCH ×2 (05:55→21:47)
[2019-03-27] MEDS: Aspirin 81 MG TAB.CHEW PO SCH (08:40)
[2019-03-27] MEDS: Cholecalciferol (D-3) 1,000 UNIT (25MCG) TABLET PO SCH (08:40)
[2019-03-27] MEDS: Ascorbic Acid 500 MG TABLET PO SCH (08:40)
[2019-03-27] MEDS: Diltiazem CD (24hr) 240 MG CAPSULE PO SCH (08:40)
[2019-03-27] MEDS: Magnesium Oxide 400 MG TABLET PO SCH (08:41)
[2019-03-27] MEDS: Famotidine 20 MG TABLET PO SCH (08:41)
[2019-03-27] MEDS: risperiDONE 0.25 MG TABLET PO SCH (08:41)
[2019-03-27] MEDS ORDERED: Aspirin 81 MG TAB.CHEW PO SCH (09:00)
[2019-03-27] MEDS ORDERED: Magnesium Oxide 400 MG TABLET PO SCH (09:00)
[2019-03-27] MEDS ORDERED: Famotidine 20 MG TABLET PO SCH (09:00)
[2019-03-27 09:02] LABS: Basophils % 0.1 %; Eosinophils # 0.1 K/mcL (0.0-0.6); Eosinophils % 0.7 %; Hematocrit 25.4 % (35.3-44.9); Hemoglobin 7.6 g/dL (11.5-15.4); Immature Granulocytes % 0.7 % (0-4); Lymphocytes % 12.2 %; Mean Corpuscular HGB Conc 29.9 g/dL (31.6-35.5); Mean Corpuscular Hemoglobin 27.8 pg (28.0-33.3); Mean Platelet Volume 10.9 fL (9.4-12.4); Monocytes # 1.1 K/mcL (0.0-1.3); Monocytes % 13.2 %; Platelet Count 177 K/mcL (140-400); Red Blood Count 2.73 M/mcL (3.82-4.97); Red Cell Distribution Width 14.2 % (11.5-14.5); Segmented Neutrophils % 73.1 %; White Blood Count 8.2 K/mcL (4.3-11.1)
[2019-03-27 09:08] LABS: INR 1.6; Prothrombin Time 17.9 Seconds (9.4-12.1)
[2019-03-27 09:20] LABS: Albumin 3.8 g/dL (3.5-5.7); Albumin/Globulin Ratio 1.7 (1.1-2.2); Bilirubin,Total 0.5 mg/dL (0.3-1.0); Calcium 8.8 mg/dL (8.6-10.3); Globulin 2.2 g/dL (2.4-3.5); Potassium 4.1 mEq/L (3.5-5.1)
[2019-03-27] MEDS ORDERED: 0.9 % Sodium Chloride 500 ML ONE (10:55)
[2019-03-27] MEDS ORDERED: 0.9 % Sodium Chloride 500 ML IV ONE (10:58)
--- NOTE | 2019-03-27 12:09 | Electrocardiograph Report ---
[place] [address] Test Date: 2019-03-27 Pat Name: Mckayla Singer Department: 113 Room: 3B43 Gender: F Die Machine Operator: : 1935 Requested By: Bon Jones Order Number: [id number] Reading MD: Melo Golden Measurements Intervals [place] Rate: 33 P: AR: 0 QRS: 92 QRSD: 88 T: 27 QT: 479 QTc: 364 Interpretive Statements ATRIAL FIBRILLATION WITH SLOW VENTRICULAR RESPONSE BORDERLINE RIGHT AXIS DEVIATION [QRS AXIS > 90] MODERATE ST DEPRESSION [0.05+ mV ST DEPRESSION] Electronically Signed On 03-27-2019 12:08:10 EDT by Melo Golden
--- NOTE | 2019-03-27 12:10 | Electrocardiograph Report ---
[place] [address] Test Date: 2019-03-27 Pat Name: Mckayla Singer Department: 113 Room: 3B43 Gender: F Nutrient Management Specialist: : 1935 Requested By: Bon Jones Order Number: [id number] Reading MD: Melo Golden Measurements Intervals [place] Rate: 39 P: [place]: 0 QRS: 102 QRSD: 124 T: -1 QT: 507 QTc: 431 Interpretive Statements ATRIAL FIBRILLATION WITH SLOW VENTRICULAR RESPONSE MARKED RIGHT AXIS DEVIATION [QRS AXIS > 100] RIGHT BUNDLE BRANCH BLOCK Electronically Signed On 03-27-2019 12:08:43 EDT by Melo Golden
[2019-03-27] MEDS: cefTRIAXone 1,000 MG in Water for inj. (sterile) 10 ML IVP SCH (12:39)
--- NOTE | 2019-03-27 13:48 | Internal Med Progress Note ---
Hospitalist Progress Note - Encounter Date of Encounter: 03/27/19 Time of Encounter: 10:00 - Subjective Interval History: Ms. Singer is a 83 year old female with past medical history of atrial fibrillation on Coumadin for anti coag, COPD, chronic hypoxic respiratory failure on 2 L home oxygen, diabetes, fibromyalgia, hypertension, osteoporosis and polymyalgia rheumatica pt presented to emergency department with complaint of weakness and pre syncopal episodes for weeks. Patient states that she has been chronically weak for approximately the past 6 months has been progressively worsening in the past weeks. Patient states symptoms are mainly present on exertion with no exacerbating or relieving factors. Weakness is diffuse with no focal deficits. She denied any dark colored stools and BRBPR. She was asked to take Iron supplements, however since she did not tolerate them she stop taking Iron tabs. Her labs showed Hb @ 8.0. She was admitted in the hospital and placed her on manager monitoring. She was started on IV hydration. She denied any CP / SOB. This morning her HR was in 30- 40's. She does c/o dizziness / lightheadedness. She feels very weak and lethargic. - Exam Vitals: Temp Pulse Resp BP Pulse Ox 97.9 F 35 16 124/51 99 03/27/19 10:49 03/27/19 10:49 03/27/19 10:49 03/27/19 10:49 03/27/19 10:49 Exam: Gen: Alert, awake, Oriented to time,place and person..Looks weak and lethargic Chest: Diminished breath sounds B/L, No wheezing, No crackles, No rales Heart: S1S2+ bradycardia No murmurs Abd: Soft, NT, BS +, No organomegaly Ext: No edema, pulses are palpable, No calf tenderness Neuro : No acute focal neuro deficits noticed Skin: No rash. - Assessment and Plan (1) Bradycardia Current Visit: Yes Status: Acute Assessment and Plan: EKG showed Bradycardia, atrial flutter with slow vent rate consulted cardiology for further eval had given Glucagon 1mg IM x 1 dose Held Cardizem and Metoprolol May need pacemaker placement Appreciate card recommendations cont gentle IV hydration will transfer the pt to step down unit Patient does need to stay in the hospital more than 2 midnights due to his complex medical problems. So we will change him to full admission today. I did review my colleague Dr. Louis's H & P including HPI, PMH, PSH, FH, SH, and ROS no changes noticed (2) Pre-syncope Current Visit: Yes Status: Acute Assessment and Plan: Due to anemia and deconditioning also concerning for bradycardia / cardiac arrythamias Echo showed LVEF 60-65%, indeterminate diastolic function, severe pulm HTN Moderate to severe TR consulted cardiology for further eval (3) STEPHIE (acute kidney injury) Current Visit: Yes Status: Acute Assessment and Plan: Due to dehydration cont IVF Cr started trending down (4) Anemia Current Visit: Yes Status: Acute Assessment and Plan: Acute blood loss anemia Hb stable @ 7.6 Her Hb was 10.9 in 10/22 GI consulted scheduled for EGD and Colonoscopy in AM cont holding Coumadin for now Cont IV PPI (5) Afib Current Visit: Yes Status: Chronic Assessment and Plan: Now her HR in 40's EKG showed Atrial flutter with slow vent rate D/C Metoprolol and Cardizem held coumadin for now since she needs EGD and Colonoscopy As well as possible pacemaker too (6) Diabetes mellitus Current Visit: Yes Status: Chronic Assessment and Plan: on ADA diet and ISS (7) GERD (gastroesophageal reflux disease) Current Visit: Yes Status: Chronic Assessment and Plan: On IV PPI BID (8) Hypertension Current Visit: Yes Status: Chronic Assessment and Plan: Resumed all home meds (9) UTI (urinary tract infection) Current Visit: Yes Status: Acute Assessment and Plan: Urine cx growing G-ve rods started her on Rocephin IV - Time Spent with Patient Total time spent is greater than 50% in coordination of care (as documented) at patient's floor/unit and/or counseling patient: Internal Medicine: Result - Labs CBC & Chem 7: 03/27/19 08:14 03/27/19 08:14 Labs: Short CBC 03/27/19 Range/Units 08:14 WBC 8.2 (4.3-11.1) K/mcL Hgb 7.6 L (11.5-15.4) g/dL Hct 25.4 L (35.3-44.9) % Plt Count 177 (140-400) K/mcL Neutrophils # 6.0 (1.6-8.9) K/mcL BMP 03/27/19 08:14 Sodium 137 Potassium 4.1 Chloride 105 Carbon Dioxide 26 BUN 24 H Creatinine 1.19 Glucose 123 H Calcium 8.8 Liver Function 03/27/19 Range/Units 08:14 Total Bilirubin 0.5 (0.3-1.0) mg/dL AST 12 L (13-39) Units/L ALT 9 (7-52) Units/L Alkaline Phosphatase 65 (34-104) Units/L Albumin 3.8 (3.5-5.7) g/dL - ABG Interpretation ABG results: PT/INR, D-dimer PT 17.9 Seconds (9.4-12.1) H 03/27/19 08:14 Consult Discharge Plan - Plan Referrals: Isabel Fajardo CNP [Primary Care Provider] - 04/04/19 9:00 am () (4) Anemia Qualifiers: Anemia type: unspecified type Qualified Code(s): D64.9 - Anemia, unspecified (5) Afib Qualifiers: Atrial fibrillation type: chronic Qualified Code(s): I48.2 - Chronic atrial fibrillation (6) Diabetes mellitus Qualifiers: Diabetes mellitus type: type 2 Diabetes mellitus extermination inspector insulin use: without half-way use Diabetes mellitus complication status: without complication Qualified Code(s): E11.9 - Type 2 diabetes mellitus without complications (7) GERD (gastroesophageal reflux disease) Qualifiers: Esophagitis presence: without esophagitis Qualified Code(s): K21.9 - Gastro- esophageal reflux disease without esophagitis (8) Hypertension Qualifiers: Hypertension type: essential hypertension Qualified Code(s): I10 - Essential (primary) hypertension (9) UTI (urinary tract infection) Qualifiers: Urinary tract infection type: acute cystitis Hematuria presence: without hematuria Qualified Code(s): N30.00 - Acute cystitis without hematuria
--- NOTE | 2019-03-27 14:33 | Cardiology Consult Note ---
<VahidJennifer J - Last Filed: 03/27/19 14:40> Date of Encounter: 03/27/19 Time of Encounter: 14:16 Assessment and Plan (1) Symptomatic bradycardia Current Visit: Yes Status: Acute Per cardiology: -Patient symptomatic with HR 30-40s. Was on CCB and BB. -Patient was given IM glucagon and reports symptom improvement, CCB and BB discontinued. -ECG with faviola, slow ventricular response, HR 39. -TTE with LVEF 60-65%, mild concenric LVH, RV mildly dilated with mild systolic dysfunction, bi-atrial enlargement, mild-moderate MR, moderate-severe TR, mild TX, severe PH, no wall motion abnormalities. -Continue to avoid AV reese blockers, will need 48 hour wash out. -No emergent indication for pacemaker at this time. -Will continue to closely monitor. (2) Afib Current Visit: Yes Status: Chronic Per cardiology: -Known faviola, was on CCB and BB at home, now held. -Was on coumadin at home, however now held due to worsneing anemia, pending GI evaluation. Patient and family educated on increased risk of CVA/embolic event while not on anticoagulation and state understanding. -Will continue to monitor. Qualifiers: Atrial fibrillation type: chronic Qualified Code(s): I48.2 - Chronic atrial fibrillation (3) Anemia Current Visit: Yes Status: Suspected Per cardiology: -Worsening anemia. -GI eval pending. -Management per primary and GI services. Qualifiers: Anemia type: iron deficiency Iron deficiency anemia type: chronic blood loss Qualified Code(s): D50.0 - Iron deficiency anemia secondary to blood loss (chronic) Discussion w patient/family: The assessment and plan as outlined above was discussed with the patient and/or family members who expressed understanding and agreement. All questions were answered. Thank you for involving us in the care of your patient. Please call with any questions. Discussed and reviewed with History of Present Illness Consult date: 03/27/19 Requesting physician: Bon Jones Consult reason: bradycardia Chief complaint: dizziness, near syncope History of present illness: Ms. Singer is a 83 year old female with a relevant past medical history of a.fib, HTN, HLD, pulmonary HTN, AK, CAD s/p PCI, anxiety, depression, DM, ARANZA intolerant to CPAP, carotid stenosis s/p CEA, vertebral fractures, who presented to [facility] with complaints of dizziness, lightheadedness, near syncope with position change. Patient and daughter state that she has been noticing symptoms for a few months now. Daughter states that they called a friend, who is a nurse, and friend states BP was 150 systolic, however HR 40. Daughter states EMS was called and EMS stated vital were similar. Upon arrival, patient was noted to have worsening anemia and is pending GI work up. Today, patient states she was sitting in chair when she noticed visual disturbance. Patient states it looked like "squiggles." Patient states she was also dizzy and lightheaded. Patient states symptoms were not as severe as presenting symptoms. HR was noted to be 40s and patient was given glucagon. Patient was then transferred to [facility]. Patient reports some mild dizziness currently. Past Med Surg Social Fam HX - Past Medical History Attestation: Yes The following information was validated with the patient. Source: patient, old records reviewed Medical history: atrial fibrillation, COPD, coronary artery disease, diabetes, fibromyalgia, hypertension, myocardial infarction, osteoporosis, valvular heart disease Psychiatric history: depression - Past Surgical History Surgical History: no surgical history - Social History Smoking Status: Former smoker Smokeless Tobacco Status: No Alcohol use: none Drug use: none - Family History Mother Hx Family Cardiac Disorders: Yes Father Hx Family Cardiac Disorders: Yes Medications and Allergies Aspirin 81 mg PO DAILY 04/16/15 [History] Cyanocobalamin (B-12) [Vitamin B12] 1,000 mcg SQ QMONTH 04/16/15 [History] Pravastatin Sodium [Pravachol] 40 mg PO QPM 04/16/15 [History] Warfarin [Coumadin] 2 mg PO SUWEFR 04/16/15 [History] Losartan [Cozaar] 25 mg PO QAM 11/17/15 [History] Spironolactone [Aldactone] 25 mg PO QAM 05/17/16 [History] Furosemide [Lasix] 40 mg PO QAM 03/25/19 [History] Glimepiride [Amaryl] 1 mg PO 1200 03/25/19 [History] Pantoprazole Sodium [Protonix] 40 mg PO QAM 03/25/19 [History] raNITIdine HCl [Ranitidine HCl] 300 mg PO QPM 03/25/19 [History] Acetaminophen [Tylenol] 1,000 mg PO BID 03/27/19 [History] Ascorbate Calcium [Vitamin C] 500 mg PO DAILY 03/27/19 [History] Calcium Carbonate/Vitamin D3 [Calcium 600 + Vit D Tablet] 2 tab PO DAILY 03/27/19 [History] Cholecalciferol (Vitamin D3) [Vitamin D3] 2,000 units PO DAILY 03/27/19 [History] DULoxetine [Cymbalta] 30 mg PO QPM 03/27/19 [History] Diltiazem CD (24hr) [Cardizem CD] 240 mg PO QAM 03/27/19 [History] Docusate Sodium [Dulcolax Stool Softener] 100 mg PO QAM 03/27/19 [History] Magnesium Oxide [Magnesium] 500 mg PO QAM 03/27/19 [History] Metoprolol [Lopressor] 25 mg PO BID 03/27/19 [History] Warfarin Sodium 1 mg PO MOTUTHSA 03/27/19 [History] risperiDONE [RisperDAL] 0.25 mg PO HS 03/27/19 [History] Allergy/AdvReac Type Severity Reaction Status Date / Time glimepiride [From Amaryl] Allergy See Verified 03/27/19 11:23 Comments gabapentin AdvReac See Verified 03/27/19 11:23 Comments prednisone AdvReac See Verified 03/27/19 11:33 Comments All Systems Review: The remainder of the systems were reviewed and are negative - Cardiovascular Cardiovascular: as per HPI, lightheadedness, slow heart rate - Neurological Neurological: dizziness Physical Examination Vital Signs, Last 4 Hours Temp Pulse Resp BP Pulse Ox 03/27/19 10:49 97.9 F 35 16 124/51 99 General: Conversant, No Apparent Distress HEENT: Atraumatic, Normocephaly, Mucus Membranes Moist Neck: No JVD, Normal carotid pulses Cardiac: Normal S1 and S2, No Murmur, Other (Irregularly irregular, bradycardic. ) Lungs: Normal Breath Sounds, No Wheeze, Rales, Rhonchi Neuro: Alert and responsive, No focal deficits noted Abdomen: Soft, Non-Tender Skin: No rashes noted on visualized skin Musculoskeletal: No Chest Wall Tenderness Extremities: No Clubbing, No Cyanosis, No Edema, Normal Pulses Results 03/27/19 08:14 03/27/19 08:14 Lab Results Active Medications Acetaminophen (Tylenol) 650 mg PO Q6H PRN PRN Reason: Mild Pain/Fever Stop: 09/24/19 23:59 Ascorbic Acid (Vitamin C) 500 mg PO DAILY [facility] Stop: 09/26/19 09:01 Last Admin: 03/27/19 08:40 Dose: 500 mg Documented by: Aspirin (Aspirin) 81 mg PO DAILY [facility] Stop: 09/25/19 15:34 Last Admin: 03/27/19 08:40 Dose: 81 mg Documented by: Atorvastatin Calcium (Lipitor) 10 mg PO DAILY [facility] Stop: 09/26/19 09:01 Last Admin: 03/27/19 08:41 Dose: 10 mg Documented by: Calcium Carbonate (Tums) 500 mg PO BID [facility] Stop: 09/25/19 21:01 Last Admin: 03/27/19 08:40 Dose: 500 mg Documented by: Cyanocobalamin (Vitamin B12) 1,000 mcg SQ QMONTH [facility] Stop: 10/03/19 09:01 Dextrose/Water (Dextrose 50% (Syg)) 25 ml IVP AD PRN PRN Reason: Hypoglycemia Stop: 09/24/19 21:54 Duloxetine HCl (Cymbalta) 30 mg PO DAILY [facility] Stop: 09/25/19 09:01 Last Admin: 03/27/19 08:40 Dose: 30 mg Documented by: Famotidine (Pepcid) 20 mg PO DAILY [facility] Stop: 09/25/19 15:46 Last Admin: 03/27/19 08:41 Dose: 20 mg Documented by: Ferrous Sulfate (Ferrous Sulfate) 325 mg PO Q48H [facility] Stop: 09/25/19 14:46 Last Admin: 03/26/19 16:16 Dose: Not Given Documented by: Glucagon (Glucagen) 1 mg IM ONCE PRN PRN Reason: Hypoglycemia Stop: 09/24/19 00:02 Glucose (Gluctose) 15 gm PO ONCE PRN PRN Reason: Hypoglycemia Stop: 09/24/19 00:01 Glucose (Gluctose) 30 gm PO ONCE PRN PRN Reason: Hypoglycemia Stop: 09/24/19 00:01 Dextrose (Dextrose 5%) 1,000 mls @ 100 mls/hr IVC .Q10H PRN PRN Reason: HYPOGLYCEMIA Stop: 09/24/19 00:01 Ceftriaxone Sodium 1,000 mg/ (Sterile Water) 10 mls @ 600 mls/hr IVP DAILY [facility] Stop: 09/26/19 11:01 Last Admin: 03/27/19 12:39 Dose: 600 mls/hr Documented by: Insulin Human Lispro (Humalog) 0 units SQ Q6HR [facility]; Protocol Stop: 09/25/19 00:01 Last Admin: 03/27/19 12:50 Dose: Not Given Documented by: Losartan Potassium (Cozaar) 25 mg PO DAILY [facility]; Protocol Stop: 09/25/19 15:59 Last Admin: 03/27/19 08:40 Dose: 25 mg Documented by: Magnesium Oxide (Mag-Ox) 400 mg PO DAILY [facility] Stop: 09/25/19 15:35 Last Admin: 03/27/19 08:41 Dose: 400 mg Documented by: Naloxone HCl (Narcan) 0.4 mg IVP Q2MPRN PRN PRN Reason: SEE COMMENTS Stop: 09/24/19 23:59 Ondansetron HCl (Zofran) 4 mg IVP Q8H PRN PRN Reason: Nausea And Vomiting Stop: 09/24/19 23:59 Pantoprazole Sodium (Protonix) 40 mg IVP Q12HR [facility] Stop: 09/25/19 06:01 Last Admin: 03/27/19 05:55 Dose: 40 mg Documented by: Risperidone (Risperdal) 0.25 mg PO DAILY [facility] Stop: 09/25/19 09:01 Last Admin: 03/27/19 08:41 Dose: 0.25 mg Documented by: Sodium Cl/Sod Bicarb/Potass Cl/PEG (Nulytely) 4,000 ml PO ONCE ONE; Protocol Stop: 03/27/19 17:01 Vitamin D (Vitamin D) 1,000 unit PO DAILY [facility] Stop: 09/26/19 09:01 Last Admin: 03/27/19 08:40 Dose: 1,000 unit Documented by: Laboratory Tests 03/25/19 03/27/19 03/27/19 20:04 08:14 08:14 Hgb 7.6 L Creatinine 1.75 H 1.19 - Imaging and Cardiology Chest Xray: report reviewed Echo: report reviewed - EKG Interpretation EKG results cardiology: personally reviewed (ECG with faviola with slow ventricular response, HR 39.), other (Telemetry reviewed with average HR previous 12 hours noted to be 59, a.fib SVR.) Consult Discharge Plan - Plan Referrals: Isabel Fajardo CNP [Primary Care Provider] - 04/04/19 9:00 am () <Melo Golden - Last Filed: 03/27/19 15:50> Date of Encounter: 03/27/19 - Attending Attestation I have personally performed a face to face evaluation on this patient. I have reviewed and agree with the documented findings and care plan as documented by the [employer]. History and Exam by me shows: 83-year-old delightful female with past history of atrial fibrillation on Cardizem and beta tony, COPD, diabetes, fibromyalgia, hypertension, osteoporosis, polymyalgia rheumatica, thyroid nodule status post thyroidectomy, chronic respiratory failure with hypoxia on home oxygen, presented with dizziness, lightheadedness, found to have bradycardia, as well as anemia. She was given IV glucagon and feels better at this time. AAOX3 in NAD at the bedside Hemodynamically stable Cardiopulmonary exam revealed S1, S2, no murmur; clear lungs Rhythm reviewed - atrial fibrillation with slow ventricular response Echo preserved EF, mild concentric LVH, RV mildly dilated with mild systolic dysfunction, bi-atrial enlargement, mild-moderate MR, moderate-severe TR, mild TX, severe PH, no wall motion abnormalities. Impression/plan: 1. Atrial fibrillation with slow ventricular response, possibly secondary to sick sinus syndrome. We will check TSH to rule out hypothyroidism Hold AV reese blocking agents at this time. 2. Anemia- for GI workup. Coumadin is being held pending endoscopy 3. Moderate to severe tricuspid regurg- treat left heart disease possibly diastolic CHF 4. Mild to moderate MR - hemodynamically stable at this time 5. Severe pulmonary hypertension- continue oxygen supplementation 6. Chronic respiratory failure with hypoxia on home oxygen Thanks for the consult, please call with questions. Melo Golden MD [facility] Assessment and Plan Discussion w patient/family: The assessment and plan as outlined above was discussed with the patient and/or family members who expressed understanding and agreement. All questions were answered. Thank you for involving us in the care of your patient. Please call with any questions. History of Present Illness History of present illness: Ms. Singer is a 83 year old female All Systems Review: The remainder of the systems were reviewed and are negative Physical Examination Vital Signs, Last 4 Hours Temp Pulse Resp BP Pulse Ox 03/27/19 15:05 97.9 F 54 14 126/69 98 Results 03/27/19 08:14 03/27/19 08:14 Lab Results 03/27/19 03/27/19 03/27/19 08:14 08:14 08:14 WBC 8.2 Hgb 7.6 L Hct 25.4 L Plt Count 177 INR 1.6 Sodium 137 Potassium 4.1 Chloride 105 Carbon Dioxide 26 BUN 24 H Creatinine 1.19 Glucose 123 H Calcium 8.8 Total Bilirubin 0.5 AST 12 L ALT 9 Alkaline Phosphatase 65
[2019-03-27] MEDS ORDERED: SODIUM CHLORIDE/NAHCO3/KCL/PEG 4,000 ML SOLN.RECON PO ONE (17:00)
[2019-03-28 04:27] LABS: Hematocrit 24.8 % (35.3-44.9); Hemoglobin 7.4 g/dL (11.5-15.4); Mean Corpuscular HGB Conc 29.8 g/dL (31.6-35.5); Mean Corpuscular Hemoglobin 27.4 pg (28.0-33.3); Mean Corpuscular Volume 91.9 fL (83.0-100.0); Mean Platelet Volume 10.8 fL (9.4-12.4); Platelet Count 187 K/mcL (140-400); Red Cell Distribution Width 14.1 % (11.5-14.5); White Blood Count 7.3 K/mcL (4.3-11.1)
[2019-03-28 04:37] LABS: INR 1.5; Prothrombin Time 17.4 Seconds (9.4-12.1)
[2019-03-28 04:47] LABS: Calcium 8.6 mg/dL (8.6-10.3); Potassium 3.8 mEq/L (3.5-5.1)
[2019-03-28] MEDS: Insulin LISPRO 300 UNITS/3 ML VIAL SQ SCH ×4 (05:51→19:06)
[2019-03-28] MEDS: Pantoprazole 40 MG VIAL IVP SCH ×2 (05:55→19:06)
[2019-03-28] MEDS: cefTRIAXone 1,000 MG in Water for inj. (sterile) 10 ML IVP SCH (08:01)
[2019-03-28] MEDS: Aspirin 81 MG TAB.CHEW PO SCH (08:02)
[2019-03-28] MEDS: Magnesium Oxide 400 MG TABLET PO SCH (08:02)
[2019-03-28] MEDS: Cholecalciferol (D-3) 1,000 UNIT (25MCG) TABLET PO SCH (08:02)
[2019-03-28] MEDS: Ascorbic Acid 500 MG TABLET PO SCH (08:02)
[2019-03-28] MEDS: risperiDONE 0.25 MG TABLET PO SCH (08:02)
[2019-03-28] MEDS: Famotidine 20 MG TABLET PO SCH (08:02)
--- NOTE | 2019-03-28 11:12 | Cardiology Progress Note ---
Date of Encounter: 03/28/19 Time of Encounter: 09:00 Assessment and Plan (1) Symptomatic bradycardia Current Visit: Yes Status: Acute Per cardiology: -Patient symptomatic with HR 30-40s. Was on CCB and BB. -Patient was given IM glucagon and reports symptom improvement, CCB and BB discontinued. -ECG with favioal, slow ventricular response, HR 39. -TTE with LVEF 60-65%, mild concenric LVH, RV mildly dilated with mild systolic dysfunction, bi-atrial enlargement, mild-moderate MR, moderate-severe TR, mild AK, severe PH, no wall motion abnormalities. -Average HR previous 12 hours noted to be 80. -Continue to avoid AV reese blockers. Will continue to monitor HR peripherally. May need to add low dose BB. (2) Afib Current Visit: Yes Status: Chronic Per cardiology: -Known faviola, was on CCB and BB at home, now held. -Was on coumadin at home, however now held due to worsneing anemia, pending GI evaluation. Patient and family educated on increased risk of CVA/embolic event while not on anticoagulation and state understanding. -Will continue to peripherally monitor. Qualifiers: Atrial fibrillation type: chronic Qualified Code(s): I48.2 - Chronic atrial fibrillation (3) Anemia Current Visit: Yes Status: Suspected Per cardiology: -Worsening anemia. -GI eval pending. -Management per primary and GI services. Qualifiers: Anemia type: iron deficiency Iron deficiency anemia type: chronic blood loss Qualified Code(s): D50.0 - Iron deficiency anemia secondary to blood loss (chronic) Discussion w patient/family: The assessment and plan as outlined above was discussed with the patient who expressed understanding and agreement. All questions were answered. Thank you for involving us in the care of your patient. Please call with any questions. Discussed and reviewed with Subjective Principal diagnosis: Anemia, bradycardia Interval history: Patient denies dizziness today. Denies visual disturbances. Reports she is tired today, after being up all night. Objective Vital Signs, Last 4 Hours Temp Pulse Resp BP Pulse Ox 03/28/19 07:25 98.1 F 87 14 175/79 98 General: Conversant, No Apparent Distress HEENT: Atraumatic, Normocephaly, Mucus Membranes Moist Neck: No JVD, Normal carotid pulses Cardiac: Normal S1 and S2, No Murmur, Other (Irregularly irregular) Lungs: Normal Breath Sounds, No Wheeze, Rales, Rhonchi Neuro: Alert and responsive, No focal deficits noted Abdomen: Soft, Non-Tender Skin: No rashes noted on visualized skin Musculoskeletal: No Chest Wall Tenderness Extremities: No Clubbing, No Cyanosis, No Edema, Normal Pulses Results 03/28/19 03:58 03/28/19 03:58 Lab Results Active Medications Acetaminophen (Tylenol) 650 mg PO Q6H PRN PRN Reason: Mild Pain/Fever Stop: 09/24/19 23:59 Ascorbic Acid (Vitamin C) 500 mg PO DAILY [facility] Stop: 09/26/19 09:01 Last Admin: 03/28/19 08:02 Dose: 500 mg Documented by: Aspirin (Aspirin) 81 mg PO DAILY [facility] Stop: 09/25/19 15:34 Last Admin: 03/28/19 08:02 Dose: 81 mg Documented by: Atorvastatin Calcium (Lipitor) 10 mg PO DAILY [facility] Stop: 09/26/19 09:01 Last Admin: 03/28/19 08:02 Dose: 10 mg Documented by: Calcium Carbonate (Tums) 500 mg PO BID [facility] Stop: 09/25/19 21:01 Last Admin: 03/28/19 08:02 Dose: 500 mg Documented by: Cyanocobalamin (Vitamin B12) 1,000 mcg SQ QMONTH [facility] Stop: 10/03/19 09:01 Dextrose/Water (Dextrose 50% (Syg)) 25 ml IVP AD PRN PRN Reason: Hypoglycemia Stop: 09/24/19 21:54 Duloxetine HCl (Cymbalta) 30 mg PO DAILY [facility] Stop: 09/25/19 09:01 Last Admin: 03/28/19 08:02 Dose: 30 mg Documented by: Famotidine (Pepcid) 20 mg PO DAILY [facility] Stop: 09/25/19 15:46 Last Admin: 03/28/19 08:02 Dose: 20 mg Documented by: Ferrous Sulfate (Ferrous Sulfate) 325 mg PO Q48H [facility] Stop: 09/25/19 14:46 Last Admin: 03/26/19 16:16 Dose: Not Given Documented by: Glucagon (Glucagen) 1 mg IM ONCE PRN PRN Reason: Hypoglycemia Stop: 09/24/19 00:02 Glucose (Gluctose) 15 gm PO ONCE PRN PRN Reason: Hypoglycemia Stop: 09/24/19 00:01 Glucose (Gluctose) 30 gm PO ONCE PRN PRN Reason: Hypoglycemia Stop: 09/24/19 00:01 Dextrose (Dextrose 5%) 1,000 mls @ 100 mls/hr IVC .Q10H PRN PRN Reason: HYPOGLYCEMIA Stop: 09/24/19 00:01 Ceftriaxone Sodium 1,000 mg/ (Sterile Water) 10 mls @ 600 mls/hr IVP DAILY [facility] Stop: 09/26/19 11:01 Last Admin: 03/28/19 08:01 Dose: 600 mls/hr Documented by: Insulin Human Lispro (Humalog) 0 units SQ Q6HR [facility]; Protocol Stop: 09/25/19 00:01 Last Admin: 03/28/19 06:24 Dose: Not Given Documented by: Magnesium Oxide (Mag-Ox) 400 mg PO DAILY [facility] Stop: 09/25/19 15:35 Last Admin: 03/28/19 08:02 Dose: 400 mg Documented by: Naloxone HCl (Narcan) 0.4 mg IVP Q2MPRN PRN PRN Reason: SEE COMMENTS Stop: 09/24/19 23:59 Ondansetron HCl (Zofran) 4 mg IVP Q8H PRN PRN Reason: Nausea And Vomiting Stop: 09/24/19 23:59 Pantoprazole Sodium (Protonix) 40 mg IVP Q12HR [facility] Stop: 09/25/19 06:01 Last Admin: 03/28/19 05:55 Dose: 40 mg Documented by: Risperidone (Risperdal) 0.25 mg PO DAILY [facility] Stop: 09/25/19 09:01 Last Admin: 03/28/19 08:02 Dose: 0.25 mg Documented by: Vitamin D (Vitamin D) 1,000 unit PO DAILY [facility] Stop: 09/26/19 09:01 Last Admin: 03/28/19 08:02 Dose: 1,000 unit Documented by: Laboratory Tests 03/28/19 03/28/19 03:58 03:58 Hgb 7.4 L Creatinine 1.41 H - Imaging and Cardiology Chest Xray: report reviewed Echo: report reviewed - EKG Interpretation EKG results cardiology: other (Telemetry reviewed with average HR previous 12 hours noted to be 80, a.fib. PVCs noted.) Consult Discharge Plan - Plan Referrals: Isabel Fajardo CNP [Primary Care Provider] - 04/04/19 9:00 am ()
--- NOTE | 2019-03-28 12:32 | Internal Med Progress Note ---
Hospitalist Progress Note - Encounter Date of Encounter: 03/28/19 Time of Encounter: 12:30 - Subjective Interval History: the patient was seen and examined at bedside. sitting comfortably in chair denies rectal bleeding no SOB or chest pain no dizziness BP and HR stable today - Exam Vitals: Temp Pulse Resp BP Pulse Ox 98.0 F 92 12 162/65 99 03/28/19 11:45 03/28/19 11:45 03/28/19 11:45 03/28/19 11:45 03/28/19 11:45 Exam: Gen: Alert, awake, not in respiratory distress or pain Chest: Diminished breath sounds B/L, No wheezing, No crackles, No rales Heart: S1S2+ No murmurs Abd: Soft, NT, BS +, No organomegaly Ext: No edema, pulses are palpable, No calf tenderness Neuro : able to move 4 limbs Skin: No rash. DVT Prophylaxis: scd - Summary of Assessment and Plan Summary of Assessment and Plan: (1) symptomatic Bradycardia Current Visit: Yes Status: Acute Assessment and Plan: EKG showed Bradycardia, atrial flutter with slow vent rate consulted cardiology for further eval had given Glucagon 1mg IM x 1 dose Held Cardizem and Metoprolol TTE with LVEF 60-65%, mild concenric LVH, RV mildly dilated with mild systolic dysfunction, bi-atrial enlargement, mild-moderate MR, moderate-severe TR, mild HI, severe PH, no wall motion abnormalities. -Average HR previous 12 hours noted to be 80. -Continue to avoid AV reese blockers. Will continue to monitor HR peripherally. May need to add low dose BB. (2) Pre-syncope Current Visit: Yes Status: Acute Assessment and Plan: Due to anemia and deconditioning also concerning for bradycardia / cardiac arrythamias Echo showed LVEF 60-65%, indeterminate diastolic function, severe pulm HTN Moderate to severe TR consulted cardiology for further eval (3) STEPHIE (acute kidney injury) Current Visit: Yes Status: Acute Assessment and Plan: serum creatinine up to 1.4 check post void bladder scan hold ARB consult clerical specialist continue on iv AB (4) Anemia Current Visit: Yes Status: Acute Assessment and Plan: Acute blood loss anemia Hb today 7.4 Her Hb was 10.9 in 10/22 GI consulted scheduled for EGD and Colonoscopy today cont holding Coumadin for now Cont IV PPI (5) Afib Current Visit: Yes Status: Chronic Assessment and Plan: had bradycardia EKG showed Atrial flutter with slow vent rate hold Metoprolol and Cardizem may need low dose BB eventualy or possible pace maker as per cardiology management held coumadin for now since she needs EGD and Colonoscopy (6) Diabetes mellitus Current Visit: Yes Status: Chronic Assessment and Plan: on ADA diet and ISS (7) GERD (gastroesophageal reflux disease) Current Visit: Yes Status: Chronic Assessment and Plan: On IV PPI BID (8) Hypertension Current Visit: Yes Status: Chronic Assessment and Plan: start on amlodipine 10 mg daily to better control BP (9) UTI (urinary tract infection) Current Visit: Yes Status: Acute Assessment and Plan: Urine cx growing E coli sensiitve continue on Rocephin IV - Time Spent with Patient Total time spent is greater than 50% in coordination of care (as documented) at patient's floor/unit and/or counseling patient: Internal Medicine: Result - Labs CBC & Chem 7: 03/28/19 03:58 03/28/19 03:58 Labs: Short CBC 03/28/19 Range/Units 03:58 WBC 7.3 (4.3-11.1) K/mcL Hgb 7.4 L (11.5-15.4) g/dL Hct 24.8 L (35.3-44.9) % Plt Count 187 (140-400) K/mcL BMP 03/28/19 03:58 Sodium 136 Potassium 3.8 Chloride 104 Carbon Dioxide 23 BUN 28 H Creatinine 1.41 H Glucose 120 H Calcium 8.6 - ABG Interpretation ABG results: PT/INR, D-dimer PT 17.4 Seconds (9.4-12.1) H 03/28/19 03:58 Consult Discharge Plan - Plan Referrals: Isabel Fajardo CNP [Primary Care Provider] - 04/04/19 9:00 am ()
[2019-03-28] MEDS: amLODIPine 5 MG TABLET PO SCH (13:38)
[2019-03-29] MEDS: Insulin LISPRO 300 UNITS/3 ML VIAL SQ SCH ×4 (00:56→17:35)
[2019-03-29] MEDS ORDERED: *HR* Metoprolol 5 MG/5 ML VIAL IVP ONE (02:51)
[2019-03-29 05:02] LABS: Hematocrit 25.1 % (35.3-44.9); Hemoglobin 7.5 g/dL (11.5-15.4); Mean Corpuscular HGB Conc 29.9 g/dL (31.6-35.5); Mean Corpuscular Hemoglobin 27.8 pg (28.0-33.3); Mean Platelet Volume 11.1 fL (9.4-12.4); Platelet Count 185 K/mcL (140-400); Red Cell Distribution Width 14.4 % (11.5-14.5); White Blood Count 8.9 K/mcL (4.3-11.1)
[2019-03-29] MEDS: Pantoprazole 40 MG VIAL IVP SCH ×2 (05:20→17:35)
[2019-03-29] MEDS ORDERED: Artificial Tears SOLN 15 ML BOTTLE BOTH EYES PRN (05:22)
[2019-03-29 05:24] LABS: Albumin 3.7 g/dL (3.5-5.7); Albumin/Globulin Ratio 1.6 (1.1-2.2); Bilirubin,Total 0.3 mg/dL (0.3-1.0); Calcium 8.5 mg/dL (8.6-10.3); Globulin 2.3 g/dL (2.4-3.5)
--- NOTE | 2019-03-29 08:31 | Event Note ---
Date of Encounter: 03/29/19 Time of Encounter: 08:29 - Cardiology Event Note Patient with a.fib, symptomatic bradycardia. AV reese blockers were held. Now a.fib with average HR 103. Will add low dose BB. Continue to monitor HR closely. Can further up titrate BB if needed. Had previously been on coumadin for an ticoagulation, however held due to worsening anemia. Patient was pending GI work up. Ideally would restart coumadin, if safe and ok with GI. Patient and family aware of increased risk of CVA/embolic event while off anticoagulation. Cardiology will sign off. Will arrange close outpatient follow up.
[2019-03-29] MEDS: Ascorbic Acid 500 MG TABLET PO SCH (09:45)
[2019-03-29] MEDS: risperiDONE 0.25 MG TABLET PO SCH (09:45)
[2019-03-29] MEDS: Aspirin 81 MG TAB.CHEW PO SCH (09:45)
[2019-03-29] MEDS: Cholecalciferol (D-3) 1,000 UNIT (25MCG) TABLET PO SCH (09:46)
[2019-03-29] MEDS: Magnesium Oxide 400 MG TABLET PO SCH (09:46)
[2019-03-29] MEDS: amLODIPine 5 MG TABLET PO SCH (09:46)
[2019-03-29] MEDS: Famotidine 20 MG TABLET PO SCH (09:47)
[2019-03-29] MEDS: cefTRIAXone 1,000 MG in Water for inj. (sterile) 10 ML IVP SCH (09:47)
--- NOTE | 2019-03-29 10:36 | Internal Med Progress Note ---
Hospitalist Progress Note - Encounter Date of Encounter: 03/29/19 Time of Encounter: 10:34 - Subjective Interval History: the patient was seen and examined at bedside. patient and daughter upset because EGD/colonscopy was not done yesterday despite patient being prepared i discussed with cardiology who recommend low dose of BB due to HR 110-100, titrate up as needed, warfarin need to be restart after GI clearance no indication of urgent pacemaker consult nephrology due to STEPHIE - Exam Vitals: Temp Pulse Resp BP Pulse Ox 98.3 F 100 18 152/74 97 03/29/19 07:24 03/29/19 07:24 03/29/19 07:24 03/29/19 07:24 03/29/19 07:24 Exam: Gen: Alert, awake, not in respiratory distress or pain Chest: Diminished breath sounds B/L, No wheezing, No crackles, No rales Heart: S1S2+ No murmurs Abd: Soft, NT, BS +, No organomegaly Ext: No edema, pulses are palpable, No calf tenderness Neuro : able to move 4 limbs Skin: No rash. DVT Prophylaxis: scd - Summary of Assessment and Plan Summary of Assessment and Plan: (1) symptomatic Bradycardia Current Visit: Yes Status: Acute Assessment and Plan: EKG showed Bradycardia, atrial flutter with slow vent rate consulted cardiology for further eval, recommend outpatient follow up no urgent need for PM resumed on small dose of BB by cardiology due to HR 110-100 TTE with LVEF 60-65%, mild concenric LVH, RV mildly dilated with mild systolic dysfunction, bi-atrial enlargement, mild-moderate MR, moderate-severe TR, mild ND, severe PH, no wall motion abnormalities. 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 continue on iv AB start on gentle hydration (4) Anemia Current Visit: Yes Status: Acute Assessment and Plan: Acute blood loss anemia Hb today 7.5 Her Hb was 10.9 in 10/22 GI consulted scheduled for EGD and Colonoscopy yesterday however , was not done cont holding Coumadin for now, ideally warfarin need to be restarted after GI clearance Cont IV PPI (5) Afib Current Visit: Yes Status: Chronic Assessment and Plan: HR come up again restart on small dose BB by cardiology EKG showed Atrial flutter with slow vent rate held coumadin for now since she needs EGD and Colonoscopy (6) Diabetes mellitus Current Visit: Yes Status: Chronic Assessment and Plan: on ADA diet and ISS (7) GERD (gastroesophageal reflux disease) Current Visit: Yes Status: Chronic Assessment and Plan: On IV PPI BID (8) Hypertension Current Visit: Yes Status: Chronic Assessment and Plan: start on amlodipine 10 mg daily and BB to better control BP (9) UTI (urinary tract infection) Current Visit: Yes Status: Acute Assessment and Plan: Urine cx growing E coli sensiitve continue on Rocephin IV total RX duration is 5 days - Time Spent with Patient Total time spent is greater than 50% in coordination of care (as documented) at patient's floor/unit and/or counseling patient: Internal Medicine: Result - Labs CBC & Chem 7: 03/29/19 04:13 03/29/19 04:13 Labs: Short CBC 03/29/19 Range/Units 04:13 WBC 8.9 (4.3-11.1) K/mcL Hgb 7.5 L (11.5-15.4) g/dL Hct 25.1 L (35.3-44.9) % Plt Count 185 (140-400) K/mcL BMP 03/29/19 04:13 Sodium 140 Potassium 4.0 Chloride 108 H Carbon Dioxide 23 BUN 20 Creatinine 1.47 H Glucose 183 H Calcium 8.5 L Liver Function 03/29/19 Range/Units 04:13 Total Bilirubin 0.3 (0.3-1.0) mg/dL AST 13 (13-39) Units/L ALT 10 (7-52) Units/L Alkaline Phosphatase 77 (34-104) Units/L Albumin 3.7 (3.5-5.7) g/dL - ABG Interpretation ABG results: PT/INR, D-dimer PT 17.4 Seconds (9.4-12.1) H 03/28/19 03:58 Consult Discharge Plan - Plan Referrals: Isabel Fajardo CNP [Primary Care Provider] - 04/04/19 9:00 am ()
[2019-03-29] MEDS: 0.9 % Sodium Chloride 1,000 ML IVC SCH (14:34)
--- NOTE | 2019-03-29 14:59 | AcuteCare Surgery Consult Note ---
Date of Encounter: 03/29/19 Time of Encounter: 14:58 Assessment and Plan (1) Iron deficiency anemia Current Visit: Yes Status: Acute I explained to the patient that I do agree that it would be appropriate for us to go ahead and unfortunately give her an additional bowel prep with the intent of performing EGD and colonoscopy if she is cleared by tomorrow. I will be reevaluating her tomorrow morning and if she is clear then I will call the endoscopy team and do the procedure. The patient verbalized her understanding and agrees with the above-mentioned plan. Qualifiers: Iron deficiency anemia type: unspecified iron deficiency Qualified Code(s): D50.9 - Iron deficiency anemia, unspecified History of Present Illness Consult date: 03/29/19 Reason for consult: other (Deficiency anemia) Requesting physician: Mauricio Tolentino History of present illness: The patient is an 83-year-old female admitted to the hospital secondary to bradycardia. She was also evaluated by gastroenterology for possible EGD and colonoscopy however the procedure was canceled twice (the patient had 2 separate bowel preps) due to a heart issue. I been asked to evaluate the patient over this weekend for the possibility of performing the procedure since she is still an inpatient and her bradycardic issues have resolved. The patient admits to some occasional bloating and some discomfort at the feeling that her abdomen is "hard." She denies any nausea or vomiting and does admit to some occasional epigastric discomfort. She has occasional sensation of nausea when she has a bowel movement but she describes it more as a increased amount of saliva secretions that may cause the nausea. She had diarrhea the night before her admission to the hospital but otherwise has some occasional di arrhea with bowel movements on average occurring 3 times a day. She was given iron and states that during the time period that she was taking the medication she noted black colored stools. Before and after stopping the iron her bowel movements did not show any discoloration. She last had an EGD and colonoscopy in 2011. Past Med Surg Social Fam HX - Past Medical History Medical history: atrial fibrillation, COPD, coronary artery disease, diabetes, fibromyalgia, hypertension, myocardial infarction, osteoporosis, valvular heart disease Psychiatric history: depression - Past Surgical History Surgical History: no surgical history - Social History Smoking Status: Former smoker Smokeless Tobacco Status: No Alcohol use: none Drug use: none - Family History Mother Hx Family Cardiac Disorders: Yes Father Hx Family Cardiac Disorders: Yes Medications and Allergies Aspirin 81 mg PO DAILY 04/16/15 [History] Cyanocobalamin (B-12) [Vitamin B12] 1,000 mcg SQ QMONTH 04/16/15 [History] Pravastatin Sodium [Pravachol] 40 mg PO QPM 04/16/15 [History] Warfarin [Coumadin] 2 mg PO SUWEFR 04/16/15 [History] Losartan [Cozaar] 25 mg PO QAM 11/17/15 [History] Spironolactone [Aldactone] 25 mg PO QAM 05/17/16 [History] Furosemide [Lasix] 40 mg PO QAM 03/25/19 [History] Glimepiride [Amaryl] 1 mg PO 1200 03/25/19 [History] Pantoprazole Sodium [Protonix] 40 mg PO QAM 03/25/19 [History] raNITIdine HCl [Ranitidine HCl] 300 mg PO QPM 03/25/19 [History] Acetaminophen [Tylenol] 1,000 mg PO BID 03/27/19 [History] Ascorbate Calcium [Vitamin C] 500 mg PO DAILY 03/27/19 [History] Calcium Carbonate/Vitamin D3 [Calcium 600 + Vit D Tablet] 2 tab PO DAILY 03/27/19 [History] Cholecalciferol (Vitamin D3) [Vitamin D3] 2,000 units PO DAILY 03/27/19 [History] DULoxetine [Cymbalta] 30 mg PO QPM 03/27/19 [History] Diltiazem CD (24hr) [Cardizem CD] 240 mg PO QAM 03/27/19 [History] Docusate Sodium [Dulcolax Stool Softener] 100 mg PO QAM 03/27/19 [History] Magnesium Oxide [Magnesium] 500 mg PO QAM 03/27/19 [History] Metoprolol [Lopressor] 25 mg PO BID 03/27/19 [History] Warfarin Sodium 1 mg PO MOTUTHSA 03/27/19 [History] risperiDONE [RisperDAL] 0.25 mg PO HS 03/27/19 [History] Allergy/AdvReac Type Severity Reaction Status Date / Time glimepiride [From Amaryl] Allergy See Verified 03/27/19 11:23 Comments gabapentin AdvReac See Verified 03/27/19 11:23 Comments prednisone AdvReac See Verified 03/27/19 11:33 Comments Review of Systems All systems PM: reviewed and no additional remarkable complaints except as stated All systems PM: The remainder of the systems were reviewed and are negative General Surgery Exam Initial Vital Signs Temp Pulse Resp BP Pulse Ox 98.0 F 52 12 162/107 95 03/25/19 19:06 03/25/19 19:06 03/25/19 19:06 03/25/19 19:06 03/25/19 19:06 - Eyes PERRL, normal ocular movement - Respiratory normal expansion, normal respiratory effort - Cardiovascular Cardiovascular exam: Present: RRR (Was unable to appreciate any arrhythmias on my current exam), no murmurs/rubs/gallops - Abdomen Abdomen general surgery: Present: bowel sounds present, soft, non tender - Neurologic Present: CN 2-12 grossly intact - Musculoskeletal Present: other (No clubbing or cyanosis noted.) - Psychiatric Psychiatric general surgery: Present: A&Ox3, appropriate, oriented to person, oriented to place, oriented to time Exam Initial Vital Signs Temp Pulse Resp BP Pulse Ox 98.0 F 52 12 162/107 95 03/25/19 19:06 03/25/19 19:06 03/25/19 19:06 03/25/19 19:06 03/25/19 19:06 Results - Labs 03/31/19 04:43 03/31/19 04:43 Abnormal lab results RBC 2.70 M/mcL (3.82-4.97) L 03/29/19 04:13 Hgb 7.5 g/dL (11.5-15.4) L 03/29/19 04:13 Hct 25.1 % (35.3-44.9) L 03/29/19 04:13 MCH 27.8 pg (28.0-33.3) L 03/29/19 04:13 MCHC 29.9 g/dL (31.6-35.5) L 03/29/19 04:13 PT 17.4 Seconds (9.4-12.1) H 03/28/19 03:58 Chloride 108 mEq/L (98-107) H 03/29/19 04:13 BUN 28 mg/dL (8-23) H 03/28/19 03:58 Creatinine 1.47 mg/dL (0.60-1.20) H 03/29/19 04:13 Est GFR ( Amer) 41 (> 60) L 03/29/19 04:13 Est GFR (Non-Af Amer) 34 (> 60) L 03/29/19 04:13 Glucose 183 mg/dL (70-105) H 03/29/19 04:13 POC Glucose 199 mg/dL (70-99) H 03/29/19 05:21 Calcium 8.5 mg/dL (8.6-10.3) L 03/29/19 04:13 Iron 13 mcg/dL (50-170) L 03/26/19 04:50 % Saturation 3 % (15-50) L 03/26/19 04:50 AST 12 Units/L (13-39) L 03/27/19 08:14 B-Natriuretic Peptide 428 pg/mL (Less than 100) H 03/25/19 20:04 Serum Total Protein 6.0 g/dL (6.4-8.9) L 03/29/19 04:13 Globulin 2.3 g/dL (2.4-3.5) L 03/29/19 04:13 HDL Cholesterol 31 mg/dL (40-59) L 03/26/19 04:50 Folate 18.3 ng/mL (3.0-16.0) H 03/26/19 04:50 Ur Leukocyte Esterase Small (Negative) H 03/25/19 20:19 Urine Microscopic RBC 3-5 per hpf (0-3) H 03/25/19 20:19 Ur Squamous Epith Cells Many per lpf (None-Few) H 03/25/19 20:19 Ur Culture Indicated? YES (NO) A 03/25/19 20:19 Stool Occult Blood Positive (Negative) A 03/26/19 12:45 Diabetes panel 03/29/19 Range/Units 04:13 Sodium 140 (136-145) mEq/L Potassium 4.0 (3.5-5.1) mEq/L Chloride 108 H (98-107) mEq/L Carbon Dioxide 23 (23-29) mEq/L BUN 20 (8-23) mg/dL Creatinine 1.47 H (0.60-1.20) mg/dL Glucose 183 H (70-105) mg/dL Calcium 8.5 L (8.6-10.3) mg/dL AST 13 (13-39) Units/L ALT 10 (7-52) Units/L Alkaline Phosphatase 77 (34-104) Units/L Albumin 3.7 (3.5-5.7) g/dL Calcium panel 03/29/19 Range/Units 04:13 Calcium 8.5 L (8.6-10.3) mg/dL Phosphorus 3.0 (2.7-4.5) mg/dL Albumin 3.7 (3.5-5.7) g/dL Pituitary panel 03/29/19 Range/Units 04:13 Sodium 140 (136-145) mEq/L Potassium 4.0 (3.5-5.1) mEq/L Chloride 108 H (98-107) mEq/L Carbon Dioxide 23 (23-29) mEq/L BUN 20 (8-23) mg/dL Creatinine 1.47 H (0.60-1.20) mg/dL Glucose 183 H (70-105) mg/dL Calcium 8.5 L (8.6-10.3) mg/dL Adrenal panel 03/29/19 Range/Units 04:13 Sodium 140 (136-145) mEq/L Potassium 4.0 (3.5-5.1) mEq/L Chloride 108 H (98-107) mEq/L Carbon Dioxide 23 (23-29) mEq/L BUN 20 (8-23) mg/dL Creatinine 1.47 H (0.60-1.20) mg/dL Glucose 183 H (70-105) mg/dL Calcium 8.5 L (8.6-10.3) mg/dL Total Bilirubin 0.3 (0.3-1.0) mg/dL AST 13 (13-39) Units/L ALT 10 (7-52) Units/L Alkaline Phosphatase 77 (34-104) Units/L Albumin 3.7 (3.5-5.7) g/dL All other labs normal. Consult Discharge Plan - Plan Referrals: Isabel Fajardo CNP [Primary Care Provider] - 04/04/19 9:00 am ()
--- NOTE | 2019-03-29 16:59 | Nephrology Consult Note ---
Date of Encounter: 03/29/19 Time of Encounter: 14:00 Assessment and Plan (1) STEPHIE (acute kidney injury) Current Visit: Yes Status: Acute Elevated SCr in the setting of anemia, bradycardia and UTI with possible volume depletion Agree with holding ARB Agree with gentle fluids Urine studies ordered Avoid nephrotoxins if possible (2) Anemia Current Visit: Yes Status: Acute Hgb noted at 7.7, fairly stable GI workup pending with very jamee iron levels noted Transfusion parameter per primary team Qualifiers: Anemia type: unspecified type Qualified Code(s): D64.9 - Anemia, unspecified (3) Bradycardia Current Visit: Yes Status: Acute Per cardiology (4) CKD (chronic kidney disease) stage 3, GFR 30-59 ml/min Current Visit: Yes Status: Acute Baseline GFR appears to be around 40s-50s History of Present Illness - Reason for Consult Consult date: 03/29/19 Acute Kidney Injury Requesting physician: Mauricio Tolentino - History of Present Illness 83 y o female with PMH pf DM, HTN, Afib, COPD, PMR and fibromyalgia admitted 03/26/19 with generalized weakness, presyncope and was noted to anemic with hgb of 8.0 with GI workup pending and bradycardia now improved off beta blockers and now resumed at a lower doase. SCr was initially noted at 1.75, GFR 28 improving to 1.19, GFR 43 and then worsening slightly today at 1.47, GFR 34. Baseline SCr noted at 1.17, GFR 44 as of oct this year. renal consulted for this. Pt seen and examined still upset about not having her GI workup done. Past Med Surg Social Fam HX - Past Medical History Medical history: atrial fibrillation, COPD, coronary artery disease, diabetes, fibromyalgia, hypertension, myocardial infarction, osteoporosis, valvular heart disease Psychiatric history: depression - Past Surgical History Surgical History: no surgical history - Social History Smoking Status: Former smoker Smokeless Tobacco Status: No Alcohol use: none Drug use: none - Family History Mother Hx Family Cardiac Disorders: Yes Father Hx Family Cardiac Disorders: Yes Medications and Allergies Aspirin 81 mg PO DAILY 04/16/15 [History] Cyanocobalamin (B-12) [Vitamin B12] 1,000 mcg SQ QMONTH 04/16/15 [History] Pravastatin Sodium [Pravachol] 40 mg PO QPM 04/16/15 [History] Warfarin [Coumadin] 2 mg PO SUWEFR 04/16/15 [History] Losartan [Cozaar] 25 mg PO QAM 11/17/15 [History] Spironolactone [Aldactone] 25 mg PO QAM 05/17/16 [History] Furosemide [Lasix] 40 mg PO QAM 03/25/19 [History] Glimepiride [Amaryl] 1 mg PO 1200 03/25/19 [History] Pantoprazole Sodium [Protonix] 40 mg PO QAM 03/25/19 [History] raNITIdine HCl [Ranitidine HCl] 300 mg PO QPM 03/25/19 [History] Acetaminophen [Tylenol] 1,000 mg PO BID 03/27/19 [History] Ascorbate Calcium [Vitamin C] 500 mg PO DAILY 03/27/19 [History] Calcium Carbonate/Vitamin D3 [Calcium 600 + Vit D Tablet] 2 tab PO DAILY 03/27 [History] Cholecalciferol (Vitamin D3) [Vitamin D3] 2,000 units PO DAILY 03/27/19 [History] DULoxetine [Cymbalta] 30 mg PO QPM 03/27/19 [History] Diltiazem CD (24hr) [Cardizem CD] 240 mg PO QAM 03/27/19 [History] Docusate Sodium [Dulcolax Stool Softener] 100 mg PO QAM 03/27/19 [History] Magnesium Oxide [Magnesium] 500 mg PO QAM 03/27/19 [History] Metoprolol [Lopressor] 25 mg PO BID 03/27/19 [History] Warfarin Sodium 1 mg PO MOTUTHSA 03/27/19 [History] risperiDONE [RisperDAL] 0.25 mg PO HS 03/27/19 [History] Allergy/AdvReac Type Severity Reaction Status Date / Time glimepiride [From Amaryl] Allergy See Verified 03/27/19 11:23 Comments gabapentin AdvReac See Verified 03/27/19 11:23 Comments prednisone AdvReac See Verified 03/27/19 11:33 Comments Review of Systems All Systems review (narrative): The rest of the systems are negative Constitutional: fatigue (admits) Cardiovascular: chest pain (denies), leg edema (admits), slow heart rate Respiratory: dyspnea (denies) Exam - Vital Signs Vital signs: Initial Vital Signs Temp Pulse Resp BP Pulse Ox 98.0 F 52 12 162/107 95 03/25/19 19:06 03/25/19 19:06 03/25/19 19:06 03/25/19 19:06 03/25/19 19:06 Vital Signs - Last 8 Hours Temp Pulse Resp BP Pulse Ox 03/29/19 15:32 98.5 F 90 16 174/62 94 03/29/19 11:23 98.3 F 105 16 185/93 98 Intake and Output 03/29/19 03/29/19 03/29/19 07:59 15:59 23:59 Intake Total 0 / 840 840 / 840 Output Total 200 / 200 Balance -200 / 640 840 / 640 Intake: Oral 0 / 840 840 / 840 Output: Urine 200 / 200 Other: Meal Lunch Percent of Meal Consumed 100% Stool Size Small Stool Consistency liquid Stool Color Brown Weight 86.9 kg Blood Glucose* 199 162 Patient Weight 03/29/19 23:59 Weight 86.9 kg - General Appearance General appearance: well-developed, well-nourished EENT: ATNC, mucous membranes moist Neck: no JVD, supple Respiratory: clear Cardiology: edema (trace LE bilat), normal S1, normal S2 Gastrointestinal: no tenderness, no guarding Integumentary: warm and dry Neurologic: no focal deficit Musculoskeletal: no deformities Psychiatric: mood/affect appropriate, cooperative Results - Lab Results 03/30/19 02:35 03/30/19 02:35 Most recent lab results 03/29/19 04:13 Calcium 8.5 L Phosphorus 3.0 Magnesium 2.0 Consult Discharge Plan - Plan Referrals: Isabel Fajardo CNP [Primary Care Provider] - 04/04/19 9:00 am ()
[2019-03-30] MEDS: Insulin LISPRO 300 UNITS/3 ML VIAL SQ SCH ×4 (01:02→19:17)
[2019-03-30 03:26] LABS: Hemoglobin 7.7 g/dL (11.5-15.4)
[2019-03-30 03:27] LABS: Hematocrit 26.6 % (35.3-44.9); Mean Corpuscular HGB Conc 28.9 g/dL (31.6-35.5); Mean Corpuscular Volume 93.3 fL (83.0-100.0); Platelet Count 196 K/mcL (140-400); Red Blood Count 2.85 M/mcL (3.82-4.97); Red Cell Distribution Width 14.3 % (11.5-14.5); White Blood Count 7.7 K/mcL (4.3-11.1)
[2019-03-30 03:41] LABS: Albumin 3.9 g/dL (3.5-5.7); Albumin/Globulin Ratio 1.6 (1.1-2.2); Bilirubin,Total 0.4 mg/dL (0.3-1.0); Calcium 8.7 mg/dL (8.6-10.3); Globulin 2.4 g/dL (2.4-3.5); Magnesium 1.9 mg/dL (1.6-2.6); Phosphorous 2.4 mg/dL (2.7-4.5); Potassium 3.8 mEq/L (3.5-5.1); Total Protein 6.3 g/dL (6.4-8.9)
[2019-03-30] MEDS: Pantoprazole 40 MG VIAL IVP SCH ×2 (06:00→19:17)
--- NOTE | 2019-03-30 07:39 | AcuteCareSurgery Progress Note ---
Date of Encounter: 03/30/19 Time of Encounter: 07:38 - Assessment and Plan (1) Iron deficiency anemia Current Visit: Yes Status: Acute We will go ahead and proceed with both an EGD and colonoscopy with MAC today. Discussed with the patient and she agrees with the above plan. Qualifiers: Iron deficiency anemia type: unspecified iron deficiency Qualified Code(s): D50.9 - Iron deficiency anemia, unspecified Subjective Patient reports: other (Patient denies any nausea or vomiting. Multiple liquid bowel movements noted overnight.) Objective Vital Signs - Last 8 Hours Temp Pulse Resp BP Pulse Ox 03/30/19 05:58 154/60 03/30/19 05:02 98.5 F 98 16 190/72 95 03/30/19 01:02 97.9 F 102 15 176/92 99 Intake and Output 03/29/19 03/29/19 03/30/19 15:59 23:59 07:59 Intake Total 840 / 900 60 / 900 0 / 0 Balance 840 / 700 60 / 700 0 / 0 Intake: Oral 840 / 900 60 / 900 0 / 0 Other: Meal Lunch Percent of Meal Consumed 100% Stool Size Moderate Stool Consistency liquid Stool Color Yellow Pale # Bowel Movements 3 Weight 88.3 kg Blood Glucose* 162 143 133 Patient Weight 03/30/19 23:59 Weight 88.3 kg - General physical appearance well nourished, no distress - Labs 03/30/19 02:35 03/30/19 02:35 Diabetes panel 03/30/19 Range/Units 02:35 Sodium 136 (136-145) mEq/L Potassium 3.8 (3.5-5.1) mEq/L Chloride 104 (98-107) mEq/L Carbon Dioxide 24 (23-29) mEq/L BUN 15 (8-23) mg/dL Creatinine 1.12 (0.60-1.20) mg/dL Glucose 202 H (70-105) mg/dL Calcium 8.7 (8.6-10.3) mg/dL AST 13 (13-39) Units/L ALT 9 (7-52) Units/L Alkaline Phosphatase 69 (34-104) Units/L Albumin 3.9 (3.5-5.7) g/dL Calcium panel 03/30/19 Range/Units 02:35 Calcium 8.7 (8.6-10.3) mg/dL Phosphorus 2.4 L (2.7-4.5) mg/dL Albumin 3.9 (3.5-5.7) g/dL Pituitary panel 03/30/19 Range/Units 02:35 Sodium 136 (136-145) mEq/L Potassium 3.8 (3.5-5.1) mEq/L Chloride 104 (98-107) mEq/L Carbon Dioxide 24 (23-29) mEq/L BUN 15 (8-23) mg/dL Creatinine 1.12 (0.60-1.20) mg/dL Glucose 202 H (70-105) mg/dL Calcium 8.7 (8.6-10.3) mg/dL Adrenal panel 03/30/19 Range/Units 02:35 Sodium 136 (136-145) mEq/L Potassium 3.8 (3.5-5.1) mEq/L Chloride 104 (98-107) mEq/L Carbon Dioxide 24 (23-29) mEq/L BUN 15 (8-23) mg/dL Creatinine 1.12 (0.60-1.20) mg/dL Glucose 202 H (70-105) mg/dL Calcium 8.7 (8.6-10.3) mg/dL Total Bilirubin 0.4 (0.3-1.0) mg/dL AST 13 (13-39) Units/L ALT 9 (7-52) Units/L Alkaline Phosphatase 69 (34-104) Units/L Albumin 3.9 (3.5-5.7) g/dL Consult Discharge Plan - Plan Referrals: Isabel Fajardo CNP [Primary Care Provider] - 04/04/19 9:00 am ()
--- NOTE | 2019-03-30 09:00 | Anesthesia Evaluation PreOp ---
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 History: Other (fibromyalgia) Other Medical History: Diabetes Type II, GERD, Other (anxiety/depression) Anesthesia History: No Prior Anesthetic Complications, Past Anesthesia Alcohol Use: none Drug use: none Medications and Allergies Aspirin 81 mg PO DAILY 04/16/15 [History] Cyanocobalamin (B-12) [Vitamin B12] 1,000 mcg SQ QMONTH 04/16/15 [History] Pravastatin Sodium [Pravachol] 40 mg PO QPM 04/16/15 [History] Warfarin [Coumadin] 2 mg PO SUWEFR 04/16/15 [History] Losartan [Cozaar] 25 mg PO QAM 11/17/15 [History] Spironolactone [Aldactone] 25 mg PO QAM 05/17/16 [History] Furosemide [Lasix] 40 mg PO QAM 03/25/19 [History] Glimepiride [Amaryl] 1 mg PO 1200 03/25/19 [History] Pantoprazole Sodium [Protonix] 40 mg PO QAM 03/25/19 [History] raNITIdine HCl [Ranitidine HCl] 300 mg PO QPM 03/25/19 [History] Acetaminophen [Tylenol] 1,000 mg PO BID 03/27/19 [History] Ascorbate Calcium [Vitamin C] 500 mg PO DAILY 03/27/19 [History] Calcium Carbonate/Vitamin D3 [Calcium 600 + Vit D Tablet] 2 tab PO DAILY 03/27/19 [History] Cholecalciferol (Vitamin D3) [Vitamin D3] 2,000 units PO DAILY 03/27/19 [History] DULoxetine [Cymbalta] 30 mg PO QPM 03/27/19 [History] Diltiazem CD (24hr) [Cardizem CD] 240 mg PO QAM 03/27/19 [History] Docusate Sodium [Dulcolax Stool Softener] 100 mg PO QAM 03/27/19 [History] Magnesium Oxide [Magnesium] 500 mg PO QAM 03/27/19 [History] Metoprolol [Lopressor] 25 mg PO BID 03/27/19 [History] Warfarin Sodium 1 mg PO MOTUTHSA 03/27/19 [History] risperiDONE [RisperDAL] 0.25 mg PO HS 03/27/19 [History] Allergy/AdvReac Type Severity Reaction Status Date / Time glimepiride [From Amaryl] Allergy See Verified 03/27/19 11:23 Comments gabapentin AdvReac See Verified 03/27/19 11:23 Comments prednisone AdvReac See Verified 03/27/19 11:33 Comments - Meds/Allergy Pre-op Review Medications Reviewed: Yes Allergies Reviewed: Yes Beta Blockers on Current Med List: Yes If Beta Blockers taken, Date/Time (Last Dose taken): 03/29/2019 at 1734 Anesthesia Results - Labs 03/30/19 02:35 03/30/19 02:35 - Imaging EKG: report reviewed (03/27/2019 ATRIAL FIBRILLATION WITH SLOW VENTRICULAR RESPONSE MARKED RIGHT AXIS DEVIATION [QRS AXIS > 100] RIGHT BUNDLE BRANCH BLOCK) Additional studies: 03/26/2019 Echo Impressions: LVEF 60-65%. Indeterminate diastolic function. Mild concentric left ventricular hypertrophy. Right ventricular size is mildly dilated with mild systolic dysfunction by Doppler. Bi-atrial enlargement. Mild to moderate mitral regurgitation. Moderate-severe tricuspid regurgitation. Mild pulmonic regurgitation. Severe pulmonary hypertension. Anesthesia Exam Vital Signs/O2 Sat/Glucose, Most Recent Temp Pulse Resp BP Pulse Ox 98.5 F 92 16 146/80 98 03/30/19 08:04 03/30/19 08:04 03/30/19 08:04 03/30/19 08:04 03/30/19 08:04 Blood Glucose* 133 Height: 4'11''/1.5m Weight: 194 lbs/88.3 kg NPO (# of Hours): 8 Pain Scale: 0 Pain Scale Used: Numeric (1 - 10) - HEENT Pupil (Motor): EOMI Mallampati: II Teeth: Normal, Missing Denture Type: Upper: Complete Oral Opening: Greater than 3 - HACK SAW OPERATOR LOC: Oriented HACK SAW OPERATOR Motor: Normal LUE, Normal RLE, Normal LLE, Normal Face, Deficit RUE HACK SAW OPERATOR Sensory: Normal: RUE, LUE, Face, Deficit: RLE, LLE - Cardiac Rhythm: Irregular Murmur: None - Pulmonary Breath Sounds: bilateral Clear Respiratory Effort: Symmetrical Anesthesia Assess/Plan ASA Score: 4 Level of consciousness: Cooperative, Oriented, Tranquil Anesthetic Plan: MAC Monitoring Plan: Standard Monitors
[2019-03-30] MEDS ORDERED: Propofol 500 MG/50 ML INFUS..BTL ONE (09:15)
[2019-03-30] MEDS ORDERED: Lidocaine -MPF 2% 2 ML VIAL ONE ×2 (09:15→09:19)
[2019-03-30] MEDS ORDERED: Ringers Solution, Lactated 1,000 ML IVC SCH (09:45)
--- NOTE | 2019-03-30 10:13 | Nephrology Progress Note ---
Date of Encounter: 03/30/19 Time of Encounter: 11:00 - Assessment and Plan (1) STEPHIE (acute kidney injury) Current Visit: Yes Status: Acute SCr improved at 1.12, GFR 46 which is baseline UOP documented as 200cc in the past 24hrs, not sure its accurate Continue adequate fluid intake Continue to avoid nephrotoxins if possible Will sign off, please reconsult prn. Followup with pcp and nephrology if needed on discharge (2) Anemia Current Visit: Yes Status: Acute Hgb noted at 7.7, fairly stable GI workup pending with very jamee iron levels noted Transfusion parameter per primary team Qualifiers: Anemia type: unspecified type Qualified Code(s): D64.9 - Anemia, unspecified (3) Bradycardia Current Visit: Yes Status: Acute Per cardiology (4) CKD (chronic kidney disease) stage 3, GFR 30-59 ml/min Current Visit: Yes Status: Acute Baseline GFR appears to be around 40s-50s Subjective Principal diagnosis: Anemia, bradycardia Interval history: Pt seen and examined, EGD/colonscopy today planned Objective - Vital Signs Vital signs: Vital Signs Temp Pulse Resp BP Pulse Ox 03/30/19 09:30 98.5 F 115 16 166/73 100 03/30/19 08:04 98.5 F 92 16 146/80 98 03/30/19 05:58 154/60 03/30/19 05:02 98.5 F 98 16 190/72 95 03/30/19 01:02 97.9 F 102 15 176/92 99 03/29/19 20:34 98.4 F 101 16 167/85 99 03/29/19 15:32 98.5 F 90 16 174/62 94 03/29/19 11:23 98.3 F 105 16 185/93 98 Intake and Output 03/29/19 03/30/19 03/30/19 23:59 07:59 15:59 Intake Total 60 / 900 0 / 0 Balance 60 / 700 0 / 0 Intake: Oral 60 / 900 0 / 0 Other: Stool Size Moderate Stool Consistency liquid Stool Color Yellow Pale # Bowel Movements 3 Weight 88.3 kg Blood Glucose* 143 133 Patient Weight 03/30/19 23:59 Weight 88.3 kg - General Appearance General appearance: Present: well-developed, well-nourished EENT: Present: ATNC, mucous membranes moist Neck: Present: no JVD, supple Respiratory: Present: clear Cardiology: Present: no edema, normal S1, normal S2 Gastrointestinal: Present: no tenderness, no guarding Integumentary: Present: warm and dry Neurologic: Present: no focal deficit Musculoskeletal: Present: no deformities Psychiatric: Present: mood/affect appropriate - Lab 03/30/19 02:35 03/30/19 02:35 Most recent lab results 03/30/19 02:35 Calcium 8.7 Phosphorus 2.4 L Magnesium 1.9 Consult Discharge Plan - Plan Referrals: Isabel Fajardo CNP [Primary Care Provider] - 04/04/19 9:00 am ()
--- NOTE | 2019-03-30 10:15 | Internal Med Progress Note ---
Hospitalist Progress Note - Encounter Date of Encounter: 03/30/19 Time of Encounter: 10:11 - Subjective Interval History: the patient was seen and examined at bedside scheduled for EGD and colonscopy today no CP or SOB gas bilateral leg pain which is chronic - Exam Vitals: Temp Pulse Resp BP Pulse Ox 98.5 F 115 16 166/73 100 03/30/19 09:30 03/30/19 09:30 03/30/19 09:30 03/30/19 09:30 03/30/19 09:30 Exam: Gen: Alert, awake, not in respiratory distress or pain Chest: Diminished breath sounds B/L, No wheezing, No crackles, No rales Heart: S1S2+ No murmurs Abd: Soft, NT, BS +, No organomegaly Ext: No edema, pulses are palpable, mild tenderness of both leg on palpation, states chronic in nature Neuro : able to move 4 limbs Skin: No rash. DVT Prophylaxis: scd - Summary of Assessment and Plan Summary of Assessment and Plan: (1) symptomatic Bradycardia Current Visit: Yes Status: Acute Assessment and Plan: EKG showed Bradycardia, atrial flutter with slow vent rate consulted cardiology for further eval, recommend outpatient follow up no urgent need for PM resumed on small dose of BB by cardiology due to HR in range 100 TTE with LVEF 60-65%, mild concenric LVH, RV mildly dilated with mild systolic dysfunction, bi-atrial enlargement, mild-moderate MR, moderate-severe TR, mild IN, severe PH, no wall motion abnormalities. (2) Pre-syncope Current Visit: Yes Status: Acute Assessment and Plan: Due to anemia and deconditioning also concerning for bradycardia / cardiac arrythamias Echo showed LVEF 60-65%, indeterminate diastolic function, severe pulm HTN Moderate to severe TR (3) STEPHIE (acute kidney injury) Current Visit: Yes Status: resolved Assessment and Plan: serum creatinine down to 1.12 check post void bladder scan, no retention resume ARB to better control BP continue on iv AB, switch to oral on D/C start on gentle hydration (4) Anemia Current Visit: Yes Status: Acute Assessment and Plan: Acute blood loss anemia Hb today 7.7 Her Hb was 10.9 in 10/22 GI consulted scheduled for EGD and Colonoscopy today cont holding Coumadin for now, ideally warfarin need to be restarted after GI clearance Cont IV PPI (5) Afib Current Visit: Yes Status: Chronic Assessment and Plan: HR come up again restart on small dose BB by cardiology EKG showed Atrial flutter with slow vent rate held coumadin for now since she needs EGD and Colonoscopy (6) Diabetes mellitus Current Visit: Yes Status: Chronic Assessment and Plan: on ADA diet and ISS (7) GERD (gastroesophageal reflux disease) Current Visit: Yes Status: Chronic Assessment and Plan: On IV PPI BID (8) Hypertension Current Visit: Yes Status: Chronic Assessment and Plan: start on amlodipine 10 mg daily and BB to better control BP resume on ARB (9) UTI (urinary tract infection) Current Visit: Yes Status: Acute Assessment and Plan: Urine cx growing E coli sensiitve continue on Rocephin IV total RX duration is 5 days - Time Spent with Patient Total time spent is greater than 50% in coordination of care (as documented) at patient's floor/unit and/or counseling patient: Internal Medicine: Result - Labs CBC & Chem 7: 03/30/19 02:35 03/30/19 02:35 Labs: Short CBC 03/30/19 Range/Units 02:35 WBC 7.7 (4.3-11.1) K/mcL Hgb 7.7 L (11.5-15.4) g/dL Hct 26.6 L (35.3-44.9) % Plt Count 196 (140-400) K/mcL BMP 03/30/19 02:35 Sodium 136 Potassium 3.8 Chloride 104 Carbon Dioxide 24 BUN 15 Creatinine 1.12 Glucose 202 H Calcium 8.7 Liver Function 03/30/19 Range/Units 02:35 Total Bilirubin 0.4 (0.3-1.0) mg/dL AST 13 (13-39) Units/L ALT 9 (7-52) Units/L Alkaline Phosphatase 69 (34-104) Units/L Albumin 3.9 (3.5-5.7) g/dL - ABG Interpretation ABG results: PT/INR, D-dimer PT 17.4 Seconds (9.4-12.1) H 03/28/19 03:58 Consult Discharge Plan - Plan Referrals: Isabel Fajardo CNP [Primary Care Provider] - 04/04/19 9:00 am ()
--- NOTE | 2019-03-30 10:16 | Acute Care Surgery Event Note ---
Date of Encounter: 03/30/19 Time of Encounter: 10:14 EGD and colonoscopy completed. EGD shows food in the stomach. No evidence of inflammation, mass effect, or bleeding. Colonoscopy demonstrates small non- bleeding hemorrhoids. Small oozing noted in the cecum from two areas-iatrogenic caused by the scope and cauterized. No inflammation. No other evidence of bleeding. No colon source behind the patient's iron deficiency anemia. Will advance diet and sign off. Thank you.
[2019-03-30] MEDS ORDERED: Esmolol 100 MG/10 ML VIAL IVP ONE (10:21)
--- NOTE | 2019-03-30 10:50 | Event Note ---
Date of Encounter: 03/30/19 Time of Encounter: 10:00 - Cardiology Event Note Attempted to see patient, however patient off the floor for testing. Low dose BB was added yesterday, HR controlled. Will continue to monitor.
[2019-03-30] MEDS: Cholecalciferol (D-3) 1,000 UNIT (25MCG) TABLET PO SCH (10:54)
[2019-03-30] MEDS: Ascorbic Acid 500 MG TABLET PO SCH (10:55)
[2019-03-30] MEDS: Aspirin 81 MG TAB.CHEW PO SCH (10:59)
[2019-03-30] MEDS: Magnesium Oxide 400 MG TABLET PO SCH (10:59)
[2019-03-30] MEDS: Famotidine 20 MG TABLET PO SCH (10:59)
[2019-03-30] MEDS: amLODIPine 5 MG TABLET PO SCH (10:59)
[2019-03-30] MEDS: risperiDONE 0.25 MG TABLET PO SCH (10:59)
[2019-03-30] MEDS: cefTRIAXone 1,000 MG in Water for inj. (sterile) 10 ML IVP SCH (11:00)
[2019-03-30] MEDS ORDERED: 0.9 % Sodium Chloride 1,000 ML IVC SCH (13:36)
[2019-03-30] MEDS ORDERED: Dextrose Gel 15 GM/37.5 ML TUBE PO PRN ×2 (13:36)
[2019-03-30] MEDS ORDERED: Ondansetron 4 MG/2 ML VIAL IVP PRN (13:36)
[2019-03-30] MEDS ORDERED: *HR* Dextrose 50 % in Water (Syg) 50 ML SYRINGE IVP PRN (13:36)
[2019-03-30] MEDS ORDERED: D5% in Water 1,000 ML IVC PRN (13:36)
[2019-03-30] MEDS ORDERED: Artificial Tears SOLN 15 ML BOTTLE BOTH EYES PRN (13:36)
[2019-03-30] MEDS ORDERED: Naloxone 0.4 MG/ML INJ IVP PRN (13:36)
[2019-03-30 14:41] LABS: INR 1.1
[2019-03-30] MEDS: Acetaminophen 325 MG TABLET PO PRN (15:25)
[2019-03-30] MEDS ORDERED: Simethicone 80 MG TAB.CHEW PO PRN (15:32)
[2019-03-30] MEDS ORDERED: *HR* Warfarin 5 MG TABLET PO SCH (18:00)
[2019-03-30] MEDS ORDERED: *HR* Warfarin 2 MG TABLET PO ONE (18:00)
[2019-03-30] MEDS ORDERED: Warfarin perPT PO PRN (18:00)
[2019-03-31] MEDS: Insulin LISPRO 300 UNITS/3 ML VIAL SQ SCH ×6 (04:35→22:55)
[2019-03-31] MEDS: Pantoprazole 40 MG VIAL IVP SCH (04:47)
[2019-03-31 05:30] LABS: Hematocrit 24.9 % (35.3-44.9); Hemoglobin 7.3 g/dL (11.5-15.4); Mean Corpuscular HGB Conc 29.3 g/dL (31.6-35.5); Mean Corpuscular Hemoglobin 27.7 pg (28.0-33.3); Mean Corpuscular Volume 94.3 fL (83.0-100.0); Mean Platelet Volume 10.9 fL (9.4-12.4); Platelet Count 172 K/mcL (140-400); Red Blood Count 2.64 M/mcL (3.82-4.97); Red Cell Distribution Width 14.4 % (11.5-14.5)
[2019-03-31 05:39] LABS: INR 1.1; Prothrombin Time 12.6 Seconds (9.4-12.1)
[2019-03-31 05:54] LABS: Alanine Aminotransferase 8 Units/L (7-52); Albumin 3.5 g/dL (3.5-5.7); Albumin/Globulin Ratio 1.5 (1.1-2.2); Alkaline Phosphatase 74 Units/L (34-104); Aspartate Amino Transferase 11 Units/L (13-39); BUN/Creatinine Ratio 12 (6-26); Bilirubin,Total 0.3 mg/dL (0.3-1.0); Blood Urea Nitrogen 11 mg/dL (8-23); Calcium 8.8 mg/dL (8.6-10.3); Carbon Dioxide 26 mEq/L (23-29); Chloride 106 mEq/L (98-107); Globulin 2.3 g/dL (2.4-3.5); Glucose 153 mg/dL (70-105); Magnesium 1.9 mg/dL (1.6-2.6); Osmolality,Calculated 284 (280-300); Phosphorous 2.5 mg/dL (2.7-4.5); Potassium 4.3 mEq/L (3.5-5.1); Sodium 136 mEq/L (136-145); Total Protein 5.8 g/dL (6.4-8.9); eGFR For African Americans > 60 (> 60); eGFR For Non-African Americans 59 (> 60)
[2019-03-31] MEDS: Famotidine 20 MG TABLET PO SCH (08:33)
[2019-03-31] MEDS: amLODIPine 5 MG TABLET PO SCH (08:33)
[2019-03-31] MEDS: Magnesium Oxide 400 MG TABLET PO SCH (08:35)
[2019-03-31] MEDS: Ascorbic Acid 500 MG TABLET PO SCH (08:35)
[2019-03-31] MEDS: Cholecalciferol (D-3) 1,000 UNIT (25MCG) TABLET PO SCH (08:35)
[2019-03-31] MEDS: Aspirin 81 MG TAB.CHEW PO SCH (08:41)
[2019-03-31 08:57] LABS: ABG Base Excess 1 mEq/L (-2 to 3); ABG Chloride 106 mEq/L (98-107); ABG Glucose 135 mg/dL (60-95); ABG HCO3 27 mEq/L (21-27); ABG Ionized Calcium 1.31 mmol/L (1.15-1.35); ABG Oxygen Saturation 95 % (95-98); ABG PCO2 44 mmHg (35-45); ABG PH 7.39 pH Units (7.32-7.45); ABG PO2 75 mmHg (85-104); ABG TCO2 28 mEq/L (20-26)
[2019-03-31] MEDS ORDERED: cefTRIAXone 1,000 MG in Water for inj. (sterile) 10 ML IVP SCH (09:00)
[2019-03-31] MEDS ORDERED: risperiDONE 0.25 MG TABLET PO SCH (09:00)
--- NOTE | 2019-03-31 09:46 | Internal Med Progress Note ---
Hospitalist Progress Note - Encounter Date of Encounter: 03/31/19 Time of Encounter: 09:42 - Subjective Interval History: the patient was seen and examined at bedside. states she is sleepy change resperidone and cymbalta dose to night only Hb 7.3 from 7.7 yestrday, she had EGD/colonscopy yetsrday with unremarkable finding denies blood in stool HR still in rage of 100-110 - Exam Vitals: Temp Pulse Resp BP Pulse Ox 98.3 F 103 20 150/75 96 03/31/19 07:38 03/31/19 07:38 03/31/19 07:38 03/31/19 07:38 03/31/19 07:38 Exam: Gen: Alert, awake, not in respiratory distress or pain Chest: Diminished breath sounds B/L, No wheezing, No crackles, No rales Heart: S1S2+ No murmurs Abd: Soft, NT, BS +, No organomegaly Ext: No edema, pulses are palpable, mild tenderness of both leg on palpation, states chronic in nature Neuro : able to move 4 limbs Skin: No rash. DVT Prophylaxis: scd - Summary of Assessment and Plan Summary of Assessment and Plan: (1) symptomatic Bradycardia Current Visit: Yes Status: Acute Assessment and Plan: EKG showed Bradycardia, atrial flutter with slow vent rate consulted cardiology for further eval, recommend outpatient follow up no urgent need for PM resumed on small dose of BB by cardiology due to HR in range 100-110, titrate up dose to achieve good control treat anemia, check another CBC later today, if Hb still low, will give PRBC TTE with LVEF 60-65%, mild concenric LVH, RV mildly dilated with mild systolic dysfunction, bi-atrial enlargement, mild-moderate MR, moderate-severe TR, mild NE, severe PH, no wall motion abnormalities. (2) Pre-syncope Current Visit: Yes Status: Acute Assessment and Plan: Due to anemia and deconditioning also concerning for bradycardia / cardiac arrythamias Echo showed LVEF 60-65%, indeterminate diastolic function, severe pulm HTN Moderate to severe TR (3) STEPHIE (acute kidney injury) Current Visit: Yes Status: resolved Assessment and Plan: serum creatinine down to 0.9 resume ARB to better control BP continue on iv AB, switch to oral on D/C d/c fluid (4) Anemia Current Visit: Yes Status: Acute Assessment and Plan: Acute blood loss anemia Hb today 7.3 fro 7.7 s/p EGD /colonscopy with no source of active bleeding check another CBC later today if still low, plan to give PRBc Her Hb was 10.9 in 10/22 resumed on warfarin d/c PPI may need outpatient capsule endoscopy if Hb continue dropping (5) Afib Current Visit: Yes Status: Chronic Assessment and Plan: HR still not well controlled restart on small dose BB by cardiology titrate up BB gradually treat anemia EKG showed Atrial flutter with slow vent rate resumed on warfarin as egd/colonscopy show no active bleeding (6) Diabetes mellitus Current Visit: Yes Status: Chronic Assessment and Plan: on ADA diet and ISS (7) GERD (gastroesophageal reflux disease) Current Visit: Yes Status: Chronic Assessment and Plan: On IV PPI BID (8) Hypertension Current Visit: Yes Status: Chronic Assessment and Plan: start on amlodipine 10 mg daily and BB to better control BP resume on ARB (9) UTI (urinary tract infection) Current Visit: Yes Status: Acute Assessment and Plan: Urine cx growing E coli sensiitve switch to oral AB for total 5 days Rx - Time Spent with Patient Total time spent is greater than 50% in coordination of care (as documented) at patient's floor/unit and/or counseling patient: Internal Medicine: Result - Labs CBC & Chem 7: 03/31/19 04:43 03/31/19 04:43 Labs: Short CBC 03/31/19 Range/Units 04:43 WBC 8.0 (4.3-11.1) K/mcL Hgb 7.3 L (11.5-15.4) g/dL Hct 24.9 L (35.3-44.9) % Plt Count 172 (140-400) K/mcL BMP 03/31/19 04:43 Sodium 136 Potassium 4.3 Chloride 106 Carbon Dioxide 26 BUN 11 Creatinine 0.91 Glucose 153 H Calcium 8.8 Liver Function 03/31/19 Range/Units 04:43 Total Bilirubin 0.3 (0.3-1.0) mg/dL AST 11 L (13-39) Units/L ALT 8 (7-52) Units/L Alkaline Phosphatase 74 (34-104) Units/L Albumin 3.5 (3.5-5.7) g/dL - ABG Interpretation ABG results: ABG ABG pH 7.39 pH Units (7.32-7.45) 03/31/19 08:49 ABG pCO2 44 mmHg (35-45) 03/31/19 08:49 ABG pO2 75 mmHg (85-104) L 03/31/19 08:49 ABG O2 Saturation 95 % (95-98) 03/31/19 08:49 PT/INR, D-dimer PT 12.6 Seconds (9.4-12.1) H 03/31/19 04:43 Consult Discharge Plan - Plan Referrals: Isabel Fajardo CNP [Primary Care Provider] - 04/04/19 9:00 am ()
--- NOTE | 2019-03-31 12:51 | Cardiology Progress Note ---
Date of Encounter: 03/31/19 Time of Encounter: 09:00 Assessment and Plan (1) Symptomatic bradycardia Current Visit: Yes Status: Acute Per cardiology: -Patient symptomatic with HR 30-40s. Was on CCB and BB. and AV reese blockers were held. Patient then had a.fib RVR and low dose BB was added. -Patient was given IM glucagon and reports symptom improvement, CCB and BB discontinued. -TTE with LVEF 60-65%, mild concenric LVH, RV mildly dilated with mild systolic dysfunction, bi-atrial enlargement, mild-moderate MR, moderate-severe TR, mild HI, severe PH, no wall motion abnormalities. -Average HR previous 12 hours noted to be 95. -Continue low dose BB. 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 -Cardiology will sign off, will arrange close outpatient follow up. (2) Afib Current Visit: Yes Status: Chronic Per cardiology: -Was on coumadin at home, however was held with worsening anemia. Underwent GI eval with no active bleeding and coumadin was resumed by primary service. -Now on low dose BB. -Continue to monitor for bleeding closely. -Will follow outpatient. Qualifiers: Atrial fibrillation type: chronic Qualified Code(s): I48.2 - Chronic atrial fibrillation Discussion w patient/family: The assessment and plan as outlined above was discussed with the patient who expressed understanding and agreement. All questions were answered. Thank you for involving us in the care of your patient. Please call with any questions. Discussed and reviewed with . Subjective Principal diagnosis: Anemia, bradycardia Interval history: Patient denies dizziness. Denies palpitations or fluttering. Denies bleeding or blood loss. Objective Vital Signs, Last 4 Hours Temp Pulse Resp BP Pulse Ox 03/31/19 11:29 98.3 F 120 16 146/87 96 General: Conversant, No Apparent Distress HEENT: Atraumatic, Normocephaly, Mucus Membranes Moist Neck: No JVD, Normal carotid pulses Cardiac: Normal S1 and S2, No Murmur, Other (Irregularly irregular) Lungs: Normal Breath Sounds, No Wheeze, Rales, Rhonchi Neuro: Alert and responsive, No focal deficits noted Abdomen: Soft, Non-Tender Skin: No rashes noted on visualized skin Musculoskeletal: No Chest Wall Tenderness Extremities: No Clubbing, No Cyanosis, No Edema, Normal Pulses Results 03/31/19 04:43 03/31/19 04:43 Lab Results Active Medications Acetaminophen (Tylenol) 650 mg PO Q6H PRN PRN Reason: Mild Pain/Fever Stop: 09/24/19 23:59 Last Admin: 03/30/19 15:25 Dose: 650 mg Documented by: Amlodipine Besylate (Norvasc) 10 mg PO DAILY [facility]; Protocol Stop: 09/27/19 12:31 Last Admin: 03/31/19 08:33 Dose: 10 mg Documented by: Artificial Tears (Akwa Tears) 1 drop BOTH EYES QID PRN; Protocol PRN Reason: dry eyes Stop: 09/28/19 09:01 Ascorbic Acid (Vitamin C) 500 mg PO DAILY [facility] Stop: 09/26/19 09:01 Last Admin: 03/31/19 08:35 Dose: 500 mg Documented by: Aspirin (Aspirin) 81 mg PO DAILY [facility] Stop: 09/25/19 15:34 Last Admin: 03/31/19 08:41 Dose: 81 mg Documented by: Atorvastatin Calcium (Lipitor) 10 mg PO DAILY [facility] Stop: 09/26/19 09:01 Last Admin: 03/31/19 08:32 Dose: 10 mg Documented by: Calcium Carbonate (Tums) 500 mg PO BID [facility] Stop: 09/25/19 21:01 Last Admin: 03/31/19 08:35 Dose: 500 mg Documented by: Carvedilol (Coreg) 3.125 mg PO BIDWM [facility]; Protocol Stop: 09/28/19 08:30 Last Admin: 03/31/19 08:32 Dose: 3.125 mg Documented by: Cephalexin HCl (Keflex) 500 mg PO BID [facility] Stop: 09/30/19 21:01 Cyanocobalamin (Vitamin B12) 1,000 mcg SQ QMONTH [facility] Stop: 10/03/19 09:01 Dextrose/Water (Dextrose 50% (Syg)) 25 ml IVP AD PRN PRN Reason: Hypoglycemia Stop: 09/24/19 21:54 Duloxetine HCl (Cymbalta) 30 mg PO DAILY [facility] Stop: 09/25/19 09:01 Last Admin: 03/31/19 08:33 Dose: 30 mg Documented by: Famotidine (Pepcid) 20 mg PO DAILY [facility] Stop: 09/25/19 15:46 Last Admin: 03/31/19 08:33 Dose: 20 mg Documented by: Ferrous Sulfate (Ferrous Sulfate) 325 mg PO Q48H [facility] Stop: 09/25/19 14:46 Last Admin: 03/30/19 15:25 Dose: 325 mg Documented by: Glucagon (Glucagen) 1 mg IM ONCE PRN PRN Reason: Hypoglycemia Stop: 09/24/19 00:02 Glucose (Gluctose) 15 gm PO ONCE PRN PRN Reason: Hypoglycemia Stop: 09/24/19 00:01 Glucose (Gluctose) 30 gm PO ONCE PRN PRN Reason: Hypoglycemia Stop: 09/24/19 00:01 Hydralazine HCl (Hydralazine) 10 mg IVP Q6HR PRN PRN Reason: Hypertension >160 Stop: 09/27/19 21:54 Dextrose (Dextrose 5%) 1,000 mls @ 100 mls/hr IVC .Q10H PRN PRN Reason: HYPOGLYCEMIA Stop: 09/24/19 00:01 Insulin Human Lispro (Humalog) 0 units SQ ACHS [facility]; Protocol Stop: 09/30/19 08:31 Last Admin: 03/31/19 08:55 Dose: 2 units Documented by: Losartan Potassium (Cozaar) 25 mg PO DAILY [facility]; Protocol Stop: 09/29/19 10:16 Last Admin: 03/31/19 08:35 Dose: 25 mg Documented by: Magnesium Oxide (Mag-Ox) 400 mg PO DAILY [facility] Stop: 09/25/19 15:35 Last Admin: 03/31/19 08:35 Dose: 400 mg Documented by: Naloxone HCl (Narcan) 0.4 mg IVP Q2MPRN PRN PRN Reason: SEE COMMENTS Stop: 09/24/19 23:59 Ondansetron HCl (Zofran) 4 mg IVP Q8H PRN PRN Reason: Nausea And Vomiting Stop: 09/24/19 23:59 Risperidone (Risperdal) 0.25 mg PO HS [facility] Stop: 09/30/19 21:01 Simethicone (Gas-X) 80 mg PO TID PRN PRN Reason: Dyspepsia Stop: 09/29/19 15:33 Vitamin D (Vitamin D) 1,000 unit PO DAILY [facility] Stop: 09/26/19 09:01 Last Admin: 03/31/19 08:35 Dose: 1,000 unit Documented by: Warfarin Sodium (Coumadin Perpt) 1 each PO DAILY@1800 PRN PRN Reason: SEE COMMENTS Stop: 09/29/19 18:01 Laboratory Tests 03/31/19 03/31/19 04:43 04:43 Hgb 7.3 L Creatinine 0.91 - Imaging and Cardiology Chest Xray: report reviewed Echo: report reviewed - EKG Interpretation EKG results cardiology: other (Telemetry reviewed with average HR previous 12 hours noted to be 95, a.fib. PVCs noted.) Consult Discharge Plan - Plan Referrals: Isabel Fajardo CNP [Primary Care Provider] - 04/04/19 9:00 am ()
[2019-03-31 14:16] LABS: Hematocrit 26.1 % (35.3-44.9)
[2019-03-31 14:17] LABS: Basophils % 0.1 %; Eosinophils # 0.1 K/mcL (0.0-0.6); Eosinophils % 1.1 %; Hemoglobin 7.4 g/dL (11.5-15.4); Immature Granulocytes % 0.5 % (0-4); Lymphocytes # 0.9 K/mcL (0.6-4.6); Lymphocytes % 9.5 %; Mean Corpuscular HGB Conc 28.4 g/dL (31.6-35.5); Mean Corpuscular Hemoglobin 26.8 pg (28.0-33.3); Mean Corpuscular Volume 94.6 fL (83.0-100.0); Mean Platelet Volume 10.7 fL (9.4-12.4); Monocytes # 1.2 K/mcL (0.0-1.3); Monocytes % 11.9 %; Platelet Count 200 K/mcL (140-400); Red Blood Count 2.76 M/mcL (3.82-4.97); Red Cell Distribution Width 14.6 % (11.5-14.5); Segmented Neutrophils % 76.9 %; White Blood Count 9.7 K/mcL (4.3-11.1)
[2019-03-31 14:36] LABS: Neutrophils # 7.5 K/mcL (1.6-8.9)
[2019-03-31 16:53] LABS: Anisocytosis 1+ (Not Present); Platelet Estimate Normal (Normal); Polychromasia 1+ (Not Present)
[2019-03-31] MEDS: risperiDONE 0.25 MG TABLET PO SCH ×2 (21:43→22:52)
[2019-03-31] MEDS: Acetaminophen 325 MG TABLET PO PRN (21:43)
[2019-03-31] MEDS: cephALEXin 500 MG CAPSULE PO SCH (21:43)
[2019-04-01] MEDS: Insulin LISPRO 300 UNITS/3 ML VIAL SQ SCH ×4 (08:30→20:25)
[2019-04-01] MEDS: Aspirin 81 MG TAB.CHEW PO SCH (08:31)
[2019-04-01] MEDS: Famotidine 20 MG TABLET PO SCH (08:31)
[2019-04-01] MEDS: cephALEXin 500 MG CAPSULE PO SCH (08:31)
[2019-04-01] MEDS: Magnesium Oxide 400 MG TABLET PO SCH (08:31)
[2019-04-01] MEDS: Cholecalciferol (D-3) 1,000 UNIT (25MCG) TABLET PO SCH (08:32)
[2019-04-01] MEDS: amLODIPine 5 MG TABLET PO SCH (08:32)
[2019-04-01] MEDS: Ascorbic Acid 500 MG TABLET PO SCH (08:32)
[2019-04-01 09:14] LABS: Basophils % 0.2 %; Eosinophils # 0.1 K/mcL (0.0-0.6); Hematocrit 25.3 % (35.3-44.9); Hemoglobin 7.5 g/dL (11.5-15.4); Immature Granulocytes % 0.8 % (0-4); Lymphocytes # 0.8 K/mcL (0.6-4.6); Lymphocytes % 9.3 %; Mean Corpuscular HGB Conc 29.6 g/dL (31.6-35.5); Mean Corpuscular Hemoglobin 27.6 pg (28.0-33.3); Mean Platelet Volume 10.9 fL (9.4-12.4); Monocytes % 11.3 %; Neutrophils # 6.7 K/mcL (1.6-8.9); Platelet Count 205 K/mcL (140-400); Red Blood Count 2.72 M/mcL (3.82-4.97); Red Cell Distribution Width 14.8 % (11.5-14.5); Segmented Neutrophils % 77.4 %; White Blood Count 8.6 K/mcL (4.3-11.1)
[2019-04-01 09:31] LABS: INR 1.1; Prothrombin Time 12.3 Seconds (9.4-12.1)
[2019-04-01 09:34] LABS: Blood Urea Nitrogen 12 mg/dL (8-23); Calcium 9.3 mg/dL (8.6-10.3); Carbon Dioxide 26 mEq/L (23-29); Chloride 101 mEq/L (98-107); Glucose 188 mg/dL (70-105); Osmolality,Calculated 287 (280-300); Potassium 4.5 mEq/L (3.5-5.1); Sodium 136 mEq/L (136-145)
[2019-04-01 09:38] LABS: BUN/Creatinine Ratio 16 (6-26); eGFR For African Americans > 60 (> 60); eGFR For Non-African Americans > 60 (> 60)
[2019-04-01 10:37] LABS: % Iron Saturation 7 % (15-50); Iron 27 mcg/dL (50-170); Transferrin 287 mg/dL (203-362)
[2019-04-01 10:53] LABS: Ferritin 198 ng/mL (10-120)
[2019-04-01 10:58] LABS: Folate 13.8 ng/mL (3.0-16.0)
[2019-04-01 11:13] LABS: Vitamin B12 > 1500 pg/mL (250-1100)
[2019-04-01] MEDS ORDERED: *HR* Warfarin 5 MG TABLET PO ONE (12:55)
[2019-04-01] MEDS: Furosemide 40 MG TABLET PO SCH (14:35)
[2019-04-01 17:50] LABS: Sodium, Urine 89.1 mEq/L
[2019-04-01] MEDS ORDERED: *HR* Warfarin 2 MG TABLET PO ONE (18:00)
[2019-04-01] MEDS: risperiDONE 0.25 MG TABLET PO SCH (20:25)
--- NOTE | 2019-04-01 20:42 | Internal Med Progress Note ---
Hospitalist Progress Note - Encounter Date of Encounter: 04/01/19 Time of Encounter: 16:15 - Subjective Interval History: Had treatment plan and discussion with the patient and her family which included her son and [id number] and daughter. They had concerns regarding her care during his hospital stay which were addressed. Patient currently denies any further episode of syncope. She was seen by duplex trimmer and not deemed candidate for pacemaker GEN: Denies fever, chills or malaise HEENT: Denies headache blurriness, or dysphagia RESP: Denies SOB or cough CV: Denies chest pain or palpitations GI: Denies Nausea, vomiting, diarrhea or constipation Reviewed current in hospital medications with modifications see orders Reviewed Routine labs - Exam Vitals: Temp Pulse Resp BP Pulse Ox 97.9 F 87 16 154/64 97 04/01/19 20:04 04/01/19 20:04 04/01/19 20:04 04/01/19 20:04 04/01/19 20:04 Exam: GEN: NAD, A&O x 3, Pleasant and conversant daughter, son, [id number] at the bedside SKIN: [place] warm acyanotic not jaundice HEART: RRR, systolic murmur appreciated 3/6 LUNGS: CTA no wheeze or crackles, overall non labored ABDOMEN; Soft, non tender or distended, BS x 4 normactive EXT: No LE edema, Pedal pulses 1+, radial pulses 2+ PSYCH: Mood and affect is appropriate - Assessment and Plan (1) Afib Current Visit: Yes Status: Chronic Assessment and Plan: Rate controlled warfarin restarted would likely not be therapeutic for another 2-3 days, denies any further episode of bleed, sp EGD was unremarkable, colonoscopy- colonic angioectasis and hemmorrhoids which could be likely source of her bleed. Discussed with patient and her family risk this is benefits of anticoagulation. They agreed to continue with anticoagulation (2) Anemia Current Visit: Yes Status: Acute Assessment and Plan: denies any further episode of bleed, sp EGD was unremarkable, colonoscopy- colonic angioectasis and hemmorrhoids which could be likely source of her bleed. Discussed with patient and her family risk this is benefits of anticoagulation. They agreed to continue with anticoagulation. Workup for anemia just suggest anemia of chronic disease with elevated ferritin, and supratherapeutic B12 and folate (3) STEPHIE (acute kidney injury) Current Visit: Yes Status: Acute Assessment and Plan: Resolved serum creatinine is 0.75 (4) Diabetes mellitus Current Visit: Yes Status: Chronic Assessment and Plan: POC ranges from 102-157 continue insulin check A1c to assess glycemic control (5) GERD (gastroesophageal reflux disease) Current Visit: Yes Status: Chronic Assessment and Plan: contine PPI would benefit from chronic PPI therapy (6) Hypertension Current Visit: Yes Status: Chronic Assessment and Plan: BP at goal for patient's age (7) Pre-syncope Current Visit: Yes Status: Acute Assessment and Plan: Due to anemia and deconditioning also concerning for bradycardia / cardiac arrythamias Echo showed LVEF 60-65%, indeterminate diastolic function, severe pulm HTN Moderate to severe TR consulted cardiology for further eval (8) Bradycardia Current Visit: Yes Status: Acute Assessment and Plan: Results pulse is now 87 EKG showed Bradycardia, atrial flutter with slow vent rate consulted cardiology for further eval had given Glucagon 1mg IM x 1 dose Held Cardizem and Metoprolol May need pacemaker placement Appreciate card recommendations cont gentle IV hydration will transfer the pt to step down unit Patient does need to stay in the hospital more than 2 midnights due to his complex medical problems. So we will change him to full admission today. I did review my colleague Dr. Louis's H & P including HPI, PMH, PSH, FH, SH, and ROS no changes noticed (9) UTI (urinary tract infection) Current Visit: Yes Status: Acute Assessment and Plan: Urine cx e-coli pansensitive started her on Rocephin IV, switched to cephalexin, has been adequately treated - Time Spent with Patient Total time spent is greater than 50% in coordination of care (as documented) at patient's floor/unit and/or counseling patient: Internal Medicine: Result - Labs CBC & Chem 7: 04/01/19 08:53 04/01/19 08:53 Labs: Short CBC 04/01/19 Range/Units 08:53 WBC 8.6 (4.3-11.1) K/mcL Hgb 7.5 L (11.5-15.4) g/dL Hct 25.3 L (35.3-44.9) % Plt Count 205 (140-400) K/mcL Neutrophils # 6.7 (1.6-8.9) K/mcL BMP 04/01/19 08:53 Sodium 136 Potassium 4.5 Chloride 101 Carbon Dioxide 26 BUN 12 Creatinine 0.75 Glucose 188 H Calcium 9.3 - ABG Interpretation ABG results: ABG ABG pH 7.39 pH Units (7.32-7.45) 03/31/19 08:49 ABG pCO2 44 mmHg (35-45) 03/31/19 08:49 ABG pO2 75 mmHg (85-104) L 03/31/19 08:49 ABG O2 Saturation 95 % (95-98) 03/31/19 08:49 PT/INR, D-dimer PT 12.3 Seconds (9.4-12.1) H 04/01/19 08:53 - VTE Documentation of Mechanical Device: Graduated compression elastic hosiery Consult Discharge Plan - Plan Referrals: Isabel Fajardo CNP [Primary Care Provider] - 04/04/19 9:00 am () (1) Afib Qualifiers: Atrial fibrillation type: chronic Qualified Code(s): I48.2 - Chronic atrial fibrillation (2) Anemia Qualifiers: Anemia type: unspecified type Qualified Code(s): D64.9 - Anemia, unspecified (4) Diabetes mellitus Qualifiers: Diabetes mellitus type: type 2 Diabetes mellitus prison insulin use: without prison use Diabetes mellitus complication status: without complication Qualified Code(s): E11.9 - Type 2 diabetes mellitus without complications (5) GERD (gastroesophageal reflux disease) Qualifiers: Esophagitis presence: without esophagitis Qualified Code(s): K21.9 - Gastro- esophageal reflux disease without esophagitis (6) Hypertension Qualifiers: Hypertension type: essential hypertension Qualified Code(s): I10 - Essential (primary) hypertension (9) UTI (urinary tract infection) Qualifiers: Urinary tract infection type: acute cystitis Hematuria presence: without hematuria Qualified Code(s): N30.00 - Acute cystitis without hematuria
[2019-04-02 05:56] LABS: Basophils % 0.2 %; Eosinophils # 0.1 K/mcL (0.0-0.6); Eosinophils % 1.2 %; Hematocrit 24.8 % (35.3-44.9); Hemoglobin 7.4 g/dL (11.5-15.4); Immature Granulocytes % 0.6 % (0-4); Lymphocytes # 0.8 K/mcL (0.6-4.6); Lymphocytes % 9.7 %; Mean Corpuscular HGB Conc 29.8 g/dL (31.6-35.5); Mean Corpuscular Hemoglobin 27.1 pg (28.0-33.3); Mean Corpuscular Volume 90.8 fL (83.0-100.0); Mean Platelet Volume 11.1 fL (9.4-12.4); Monocytes # 1.1 K/mcL (0.0-1.3); Monocytes % 12.2 %; Neutrophils # 6.6 K/mcL (1.6-8.9); Platelet Count 194 K/mcL (140-400); Red Blood Count 2.73 M/mcL (3.82-4.97); Red Cell Distribution Width 15.1 % (11.5-14.5); Segmented Neutrophils % 76.1 %; White Blood Count 8.7 K/mcL (4.3-11.1)
[2019-04-02 06:04] LABS: INR 1.1; Prothrombin Time 12.7 Seconds (9.4-12.1)
[2019-04-02 06:17] LABS: BUN/Creatinine Ratio 21 (6-26); Blood Urea Nitrogen 18 mg/dL (8-23); Calcium 9.5 mg/dL (8.6-10.3); Carbon Dioxide 29 mEq/L (23-29); Chloride 98 mEq/L (98-107); Glucose 144 mg/dL (70-105); Magnesium 1.5 mg/dL (1.6-2.6); Osmolality,Calculated 288 (280-300); Potassium 4.1 mEq/L (3.5-5.1); Sodium 137 mEq/L (136-145); eGFR For African Americans > 60 (> 60); eGFR For Non-African Americans > 60 (> 60)
[2019-04-02] MEDS: Insulin LISPRO 300 UNITS/3 ML VIAL SQ SCH ×4 (08:00→21:03)
[2019-04-02] MEDS ORDERED: *HR* Warfarin 5 MG TABLET PO ONE (08:03)
[2019-04-02] MEDS: Famotidine 20 MG TABLET PO SCH (08:46)
[2019-04-02] MEDS: Magnesium Oxide 400 MG TABLET PO SCH (08:46)
[2019-04-02] MEDS: amLODIPine 5 MG TABLET PO SCH (08:47)
[2019-04-02] MEDS: Ascorbic Acid 500 MG TABLET PO SCH (08:47)
[2019-04-02] MEDS: Cholecalciferol (D-3) 1,000 UNIT (25MCG) TABLET PO SCH (08:47)
[2019-04-02] MEDS: Aspirin 81 MG TAB.CHEW PO SCH (08:47)
[2019-04-02] MEDS: Furosemide 40 MG TABLET PO SCH (08:47)
[2019-04-02 10:14] LABS: Estimated Average Glucose 151 mg/dl
[2019-04-02] MEDS: Acetaminophen 325 MG TABLET PO PRN (14:29)
--- NOTE | 2019-04-02 16:26 | Internal Med Progress Note ---
Hospitalist Progress Note - Encounter Date of Encounter: 04/02/19 Time of Encounter: 11:45 - Subjective Interval History: Ms Lucrecia status she is tolerating her meals and physical therapy, family plan for discharge is for home with family. INR remains subtherapeutic GEN: Denies fever, chills or malaise HEENT: Denies headache blurriness, or dysphagia RESP: Denies SOB or cough CV: Denies chest pain or palpitations GI: Denies Nausea, vomiting, diarrhea or constipation Reviewed current in hospital medications with modifications see orders Reviewed Routine labs - Exam Vitals: Temp Pulse Resp BP Pulse Ox 97.7 F 93 15 147/52 96 04/02/19 15:21 04/02/19 15:21 04/02/19 04:42 04/02/19 15:21 04/02/19 15:21 Exam: GEN: NAD, A&O x 3, Pleasant and conversant a different daughter was at bedside today SKIN: [place] warm acyanotic not jaundice HEART: RRR, systolic murmur appreciated 3/6 LUNGS: CTA no wheeze or crackles, overall non labored ABDOMEN; Soft, non tender or distended, BS x 4 normactive EXT: No LE edema, Pedal pulses 1+, radial pulses 2+ PSYCH: Mood and affect is appropriate - Assessment and Plan (1) Afib Current Visit: Yes Status: Chronic Assessment and Plan: Rate controlled warfarin restarted would likely not be therapeutic for another 2-3 days, INR was only 1.1 denies any further episode of bleed, sp EGD was unremarkable, colonoscopy- colonic angioectasis and hemmorrhoids which could be likely source of her bleed. Discussed with patient and her family risk this is benefits of anticoagulation. They agreed to continue with anticoagulation (2) Anemia Current Visit: Yes Status: Acute Assessment and Plan: denies any further episode of bleed, sp EGD was unremarkable, colonoscopy- colonic angioectasis and hemmorrhoids which could be likely source of her bleed. Discussed with patient and her family risk this is benefits of anticoagulation. They agreed to continue with anticoagulation. Workup for anemia just suggest anemia of chronic disease with elevated ferritin, and supratherapeutic B12 and folate. Hemoglobin is stable at 7.4, discussed with patient's about possibility of transfusion, if hgb drops below 7 she will think about it (3) STEPHIE (acute kidney injury) Current Visit: Yes Status: Acute Assessment and Plan: Resolved serum creatinine has normalized (4) Diabetes mellitus Current Visit: Yes Status: Chronic Assessment and Plan: POC ranges from 124-165, at goal continue insulin check A1c 6.9 slightly below goal of 7 (5) GERD (gastroesophageal reflux disease) Current Visit: Yes Status: Chronic Assessment and Plan: contine PPI would benefit from chronic PPI therapy (6) Hypertension Current Visit: Yes Status: Chronic Assessment and Plan: BP at goal for patient's age (7) Pre-syncope Current Visit: Yes Status: Acute Assessment and Plan: She denies any further episodes tolerated physical therapy Due to anemia and deconditioning also concerning for bradycardia / cardiac arrythamias Echo showed LVEF 60-65%, indeterminate diastolic function, severe pulm HTN Moderate to severe TR consulted cardiology for further eval (8) Bradycardia Current Visit: Yes Status: Acute Assessment and Plan: Resolved pulse is now 84-97 EKG showed Bradycardia, atrial flutter with slow vent rate consulted cardiology for further eval had given Glucagon 1mg IM x 1 dose Held Cardizem and Metoprolol May need pacemaker placement Appreciate card recommendations cont gentle IV hydration will transfer the pt to step down unit Patient does need to stay in the hospital more than 2 midnights due to his complex medical problems. So we will change him to full admission today. I did review my colleague Dr. Louis's H & P including HPI, PMH, PSH, FH, SH, and ROS no changes noticed (9) UTI (urinary tract infection) Current Visit: Yes Status: Acute Assessment and Plan: Urine cx e-coli pansensitive started her on Rocephin IV, switched to cephalexin, has been adequately treated DVT Prophylaxis: scd encourage ambulation - Time Spent with Patient Total time spent is greater than 50% in coordination of care (as documented) at patient's floor/unit and/or counseling patient: Plan of Care Discussed with: case management Internal Medicine: Result - Labs CBC & Chem 7: 04/02/19 05:21 04/02/19 05:21 Labs: Short CBC 04/02/19 Range/Units 05:21 WBC 8.7 (4.3-11.1) K/mcL Hgb 7.4 L (11.5-15.4) g/dL Hct 24.8 L (35.3-44.9) % Plt Count 194 (140-400) K/mcL Neutrophils # 6.6 (1.6-8.9) K/mcL BMP 04/02/19 05:21 Sodium 137 Potassium 4.1 Chloride 98 Carbon Dioxide 29 BUN 18 Creatinine 0.86 Glucose 144 H Calcium 9.5 - ABG Interpretation ABG results: ABG ABG pH 7.39 pH Units (7.32-7.45) 03/31/19 08:49 ABG pCO2 44 mmHg (35-45) 03/31/19 08:49 ABG pO2 75 mmHg (85-104) L 03/31/19 08:49 ABG O2 Saturation 95 % (95-98) 03/31/19 08:49 PT/INR, D-dimer PT 12.7 Seconds (9.4-12.1) H 04/02/19 05:21 - VTE Documentation of Mechanical Device: Graduated compression elastic hosiery Consult Discharge Plan - Plan Referrals: Isabel Fajardo REPEAT CHIEF [Primary Care Provider] - 04/04/19 9:00 am () (1) Afib Qualifiers: Atrial fibrillation type: chronic Qualified Code(s): I48.2 - Chronic atrial fibrillation (2) Anemia Qualifiers: Anemia type: unspecified type Qualified Code(s): D64.9 - Anemia, unspecified (4) Diabetes mellitus Qualifiers: Diabetes mellitus type: type 2 Diabetes mellitus 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 marine terminal insulin use: without laborer marine terminal use Diabetes mellitus complication status: without complication Qualified Code(s): E11.9 - Type 2 diabetes mellitus without complications (5) GERD (gastroesophageal reflux disease) Qualifiers: Esophagitis presence: without esophagitis Qualified Code(s): K21.9 - Gastro- esophageal reflux disease without esophagitis (6) Hypertension Qualifiers: Hypertension type: essential hypertension Qualified Code(s): I10 - Essential (primary) hypertension (9) UTI (urinary tract infection) Qualifiers: Urinary tract infection type: acute cystitis Hematuria presence: without hematuria Qualified Code(s): N30.00 - Acute cystitis without hematuria
[2019-04-02] MEDS ORDERED: Warfarin perPT PO PRN (18:00)
[2019-04-02] MEDS ORDERED: *HR* Warfarin 2 MG TABLET PO SCH (18:00)
[2019-04-02] MEDS: risperiDONE 0.25 MG TABLET PO SCH (20:50)
[2019-04-02] MEDS: 0.9 % Sodium Chloride 1,000 ML IVC SCH (23:53)
[2019-04-03 05:19] LABS: Basophils % 0.3 %; Eosinophils # 0.1 K/mcL (0.0-0.6); Eosinophils % 1.6 %; Hematocrit 24.8 % (35.3-44.9); Hemoglobin 7.4 g/dL (11.5-15.4); Immature Granulocytes % 0.6 % (0-4); Lymphocytes # 0.8 K/mcL (0.6-4.6); Lymphocytes % 11.2 %; Mean Corpuscular HGB Conc 29.8 g/dL (31.6-35.5); Mean Corpuscular Hemoglobin 27.4 pg (28.0-33.3); Mean Corpuscular Volume 91.9 fL (83.0-100.0); Mean Platelet Volume 11.1 fL (9.4-12.4); Monocytes % 14.8 %; Platelet Count 204 K/mcL (140-400); Red Cell Distribution Width 15.5 % (11.5-14.5); Segmented Neutrophils % 71.5 %
[2019-04-03 05:24] LABS: INR 1.2; Prothrombin Time 13.6 Seconds (9.4-12.1)
[2019-04-03 05:38] LABS: BUN/Creatinine Ratio 26 (6-26); Blood Urea Nitrogen 21 mg/dL (8-23); Calcium 9.4 mg/dL (8.6-10.3); Carbon Dioxide 30 mEq/L (23-29); Chloride 97 mEq/L (98-107); Glucose 149 mg/dL (70-105); Magnesium 1.7 mg/dL (1.6-2.6); Osmolality,Calculated 290 (280-300); Potassium 3.9 mEq/L (3.5-5.1); Sodium 137 mEq/L (136-145); eGFR For African Americans > 60 (> 60); eGFR For Non-African Americans > 60 (> 60)
[2019-04-03] MEDS: Magnesium Oxide 400 MG TABLET PO SCH (08:25)
[2019-04-03] MEDS: amLODIPine 5 MG TABLET PO SCH (08:26)
[2019-04-03] MEDS: Cholecalciferol (D-3) 1,000 UNIT (25MCG) TABLET PO SCH (08:26)
[2019-04-03] MEDS: Ascorbic Acid 500 MG TABLET PO SCH (08:26)
[2019-04-03] MEDS: Furosemide 40 MG TABLET PO SCH (08:26)
[2019-04-03] MEDS: Insulin LISPRO 300 UNITS/3 ML VIAL SQ SCH ×4 (08:27→21:09)
[2019-04-03] MEDS: Aspirin 81 MG TAB.CHEW PO SCH (08:27)
[2019-04-03] MEDS ORDERED: Cyanocobalamin (B-12) 1,000 MCG/ML VIAL SQ SCH ×2 (09:00)
--- NOTE | 2019-04-03 16:18 | Internal Med Progress Note ---
Hospitalist Progress Note - Encounter Date of Encounter: 04/03/19 Time of Encounter: 13:30 - Subjective Interval History: Ms Singer INR remains subtherapeutic at 1.2. Discussed discharge planning again with the patient offering LMW heparin bridge but she declined stating she would rather remain hospitalized GEN: Denies fever, chills or malaise HEENT: Denies headache blurriness, or dysphagia RESP: Denies SOB or cough CV: Denies chest pain or palpitations GI: Denies Nausea, vomiting, diarrhea or constipation Reviewed current in hospital medications with modifications see orders Reviewed Routine labs - Exam Vitals: Temp Pulse Resp BP Pulse Ox 97.9 F 85 18 142/75 96 04/03/19 15:04 04/03/19 15:04 04/03/19 15:04 04/03/19 15:04 04/03/19 15:04 Exam: GEN: NAD, A&O x 3, Pleasant and conversant . No family members today SKIN: [place] warm acyanotic not jaundice HEART: Irregularly irregular rate and rhythm systolic murmur appreciated 3/6 LUNGS: CTA no wheeze or crackles, overall non labored ABDOMEN; Soft, non tender or distended, BS x 4 normactive EXT: No LE edema, Pedal pulses 1+, radial pulses 2+ PSYCH: Mood and affect is appropriate - Assessment and Plan (1) Afib Current Visit: Yes Status: Chronic Assessment and Plan: Rate controlled warfarin restarted would likely not be therapeutic for another 2-3 days, INR was only 1.2, not typical for this insidious trending. Patient still not agreeable to be discharged with a heparin bridge. She denies any further episode of bleed, sp EGD was unremarkable, colonoscopy- colonic angioectasis and hemmorrhoids which could be likely source of her bleed. Discussed with patient and her family risk this is benefits of anticoagulation. They agreed to continue with anticoagulation (2) Anemia Current Visit: Yes Status: Acute Assessment and Plan: denies any further episode of bleed, sp EGD was unremarkable, colonoscopy- colonic angioectasis and hemmorrhoids which could be likely source of her bleed. Discussed with patient and her family risk this is benefits of anticoagulation. They agreed to continue with anticoagulation. Workup for anemia just suggest anemia of chronic disease with elevated ferritin, and supratherapeutic B12 and folate. Hemoglobin remains stable at 7.4, discussed with patient's about possibility of transfusion, if hgb drops below 7 she will think about it (3) STEPHIE (acute kidney injury) Current Visit: Yes Status: Acute Assessment and Plan: Resolved serum creatinine has normalized (4) Diabetes mellitus Current Visit: Yes Status: Chronic Assessment and Plan: POC ranges from 131-263, continue insulin check A1c 6.9 slightly below goal of 7 (5) GERD (gastroesophageal reflux disease) Current Visit: Yes Status: Chronic Assessment and Plan: contine PPI would benefit from chronic PPI therapy (6) Hypertension Current Visit: Yes Status: Chronic Assessment and Plan: BP at goal for patient's age (7) Pre-syncope Current Visit: Yes Status: Acute Assessment and Plan: Family declined on ECF rehabilitation but agreeable to home health She denies any further episodes tolerated physical therapy Due to anemia and deconditioning also concerning for bradycardia / cardiac arrythamias Echo showed LVEF 60-65%, indeterminate diastolic function, severe pulm HTN Moderate to severe TR consulted cardiology for further eval (8) Bradycardia Current Visit: Yes Status: Acute Assessment and Plan: Resolved EKG showed Bradycardia, atrial flutter with slow vent rate consulted cardiology for further eval had given Glucagon 1mg IM x 1 dose Held Cardizem and Metoprolol May need pacemaker placement Appreciate card recommendations cont gentle IV hydration will transfer the pt to step down unit Patient does need to stay in the hospital more than 2 midnights due to his complex medical problems. So we will change him to full admission today. I did review my colleague Dr. Louis's H & P including HPI, PMH, PSH, FH, SH, and ROS no changes noticed (9) UTI (urinary tract infection) Current Visit: Yes Status: Acute Assessment and Plan: Urine cx e-coli pansensitive started her on Rocephin IV, switched to cephalexin, has been adequately treated DVT Prophylaxis: scd encourage ambulation, was restarted back on warfarin with INR is still subtherapeutic - Time Spent with Patient Total time spent is greater than 50% in coordination of care (as documented) at patient's floor/unit and/or counseling patient: Internal Medicine: Result - Labs CBC & Chem 7: 04/03/19 03:40 04/03/19 03:40 Labs: Short CBC 04/03/19 Range/Units 03:40 WBC 7.0 (4.3-11.1) K/mcL Hgb 7.4 L (11.5-15.4) g/dL Hct 24.8 L (35.3-44.9) % Plt Count 204 (140-400) K/mcL Neutrophils # 5.0 (1.6-8.9) K/mcL BMP 04/03/19 03:40 Sodium 137 Potassium 3.9 Chloride 97 L Carbon Dioxide 30 H BUN 21 Creatinine 0.80 Glucose 149 H Calcium 9.4 - ABG Interpretation ABG results: ABG ABG pH 7.39 pH Units (7.32-7.45) 03/31/19 08:49 ABG pCO2 44 mmHg (35-45) 03/31/19 08:49 ABG pO2 75 mmHg (85-104) L 03/31/19 08:49 ABG O2 Saturation 95 % (95-98) 03/31/19 08:49 PT/INR, D-dimer PT 13.6 Seconds (9.4-12.1) H 04/03/19 03:40 - VTE Documentation of Mechanical Device: Graduated compression elastic hosiery Consult Discharge Plan - Plan Referrals: Isabel Fajardo PROCUREMENT AGENT [Primary Care Provider] - 04/04/19 9:00 am () (1) Afib Qualifiers: Atrial fibrillation type: chronic Qualified Code(s): I48.2 - Chronic atrial fibrillation (2) Anemia Qualifiers: Anemia type: unspecified type Qualified Code(s): D64.9 - Anemia, unspecified (4) Diabetes mellitus Qualifiers: Diabetes mellitus type: type 2 Diabetes mellitus group home insulin use: without terminologist use Diabetes mellitus complication status: without complication Qualified Code(s): E11.9 - Type 2 diabetes mellitus without complications (5) GERD (gastroesophageal reflux disease) Qualifiers: Esophagitis presence: without esophagitis Qualified Code(s): K21.9 - Gastro- esophageal reflux disease without esophagitis (6) Hypertension Qualifiers: Hypertension type: essential hypertension Qualified Code(s): I10 - Essential (primary) hypertension (9) UTI (urinary tract infection) Qualifiers: Urinary tract infection type: acute cystitis Hematuria presence: without hematuria Qualified Code(s): N30.00 - Acute cystitis without hematuria
[2019-04-03] MEDS ORDERED: *HR* Warfarin 2 MG TABLET PO SCH (18:00)
[2019-04-03] MEDS: risperiDONE 0.25 MG TABLET PO SCH (21:08)
[2019-04-04 06:13] LABS: Basophils % 0.2 %; Eosinophils # 0.1 K/mcL (0.0-0.6); Eosinophils % 1.2 %; Hematocrit 25.7 % (35.3-44.9); Hemoglobin 7.6 g/dL (11.5-15.4); Immature Granulocytes % 0.6 % (0-4); Lymphocytes # 0.8 K/mcL (0.6-4.6); Lymphocytes % 10.1 %; Mean Corpuscular HGB Conc 29.6 g/dL (31.6-35.5); Mean Corpuscular Hemoglobin 27.1 pg (28.0-33.3); Mean Corpuscular Volume 91.8 fL (83.0-100.0); Mean Platelet Volume 10.9 fL (9.4-12.4); Monocytes # 1.2 K/mcL (0.0-1.3); Monocytes % 14.9 %; Neutrophils # 5.9 K/mcL (1.6-8.9); Platelet Count 224 K/mcL (140-400); Red Cell Distribution Width 15.6 % (11.5-14.5); White Blood Count 8.1 K/mcL (4.3-11.1)
[2019-04-04 06:18] LABS: INR 1.3; Prothrombin Time 14.7 Seconds (9.4-12.1)
[2019-04-04 06:33] LABS: BUN/Creatinine Ratio 21 (6-26); Blood Urea Nitrogen 19 mg/dL (8-23); Calcium 9.7 mg/dL (8.6-10.3); Carbon Dioxide 34 mEq/L (23-29); Chloride 97 mEq/L (98-107); Glucose 157 mg/dL (70-105); Magnesium 1.7 mg/dL (1.6-2.6); Osmolality,Calculated 290 (280-300); Potassium 4.1 mEq/L (3.5-5.1); Sodium 137 mEq/L (136-145); eGFR For African Americans > 60 (> 60); eGFR For Non-African Americans 58 (> 60)
[2019-04-04] MEDS ORDERED: *HR* Warfarin 5 MG TABLET PO ONE (07:45)
[2019-04-04] MEDS: Magnesium Oxide 400 MG TABLET PO SCH (07:45)
[2019-04-04] MEDS: Ascorbic Acid 500 MG TABLET PO SCH (07:46)
[2019-04-04] MEDS: Aspirin 81 MG TAB.CHEW PO SCH (07:46)
[2019-04-04] MEDS: Furosemide 40 MG TABLET PO SCH (07:48)
[2019-04-04] MEDS: Cholecalciferol (D-3) 1,000 UNIT (25MCG) TABLET PO SCH (07:49)
[2019-04-04] MEDS: amLODIPine 5 MG TABLET PO SCH (07:51)
[2019-04-04] MEDS: Insulin LISPRO 300 UNITS/3 ML VIAL SQ SCH ×4 (07:55→21:18)
--- NOTE | 2019-04-04 12:55 | Internal Med Progress Note ---
Hospitalist Progress Note - Encounter Date of Encounter: 04/04/19 Time of Encounter: 12:45 - Subjective Interval History: Ms Singer INR remains subtherapeutic and trending up slowly. Discussed with pharmacist it appears patient on presentation was taking warfarin 2 mg alternating 1 mg and her INR on presentation was 2.6 on 03/25/2019. She stated that she is compliant with the incentive spirometry GEN: Denies fever, chills or malaise HEENT: Denies headache blurriness, or dysphagia RESP: Denies SOB or cough CV: Denies chest pain or palpitations GI: Denies Nausea, vomiting, diarrhea or constipation Reviewed current in hospital medications with modifications see orders Reviewed Routine labs - Exam Vitals: Temp Pulse Resp BP Pulse Ox 98.0 F 106 16 163/86 96 04/04/19 07:18 04/04/19 07:18 04/04/19 07:18 04/04/19 07:18 04/04/19 07:18 Exam: GEN: NAD, A&O x 3, Pleasant and conversant SKIN: [place] warm acyanotic not jaundice HEART: Irregularly irregular rate and rhythm systolic murmur appreciated 3/6 LUNGS: Slightly diminished today although CTA no wheeze or crackles, overall non labored ABDOMEN; Soft, non tender or distended, BS x 4 normactive EXT: No LE edema, Pedal pulses 1+, radial pulses 2+ PSYCH: Mood and affect is appropriate - Assessment and Plan (1) Afib Current Visit: Yes Status: Chronic Assessment and Plan: Rate controlled warfarin restarted INR slowly trending up 1.1, 1.2, 1.3 not typical for this insidious trending. Patient still not agreeable to be disc harged with a heparin bridge. She denies any further episode of bleed, sp EGD was unremarkable, colonoscopy- colonic angioectasis and hemmorrhoids which could be likely source of her bleed. Discussed with patient and her family risk this is benefits of anticoagulation. They agreed to continue with anticoagulation (2) Anemia Current Visit: Yes Status: Acute Assessment and Plan: denies any further episode of bleed, sp EGD was unremarkable, colonoscopy- colonic angioectasis and hemmorrhoids which could be likely source of her bleed. Discussed with patient and her family risk this is benefits of anticoagulation. They agreed to continue with anticoagulation. Workup for anemia just suggest anemia of chronic disease with elevated ferritin, and supratherapeutic B12 and folate. Hemoglobin remains stable at 7.6 today, discussed with patient's about possibility of transfusion, if hgb drops below 7 she will think about it (3) STEPHIE (acute kidney injury) Current Visit: Yes Status: Acute Assessment and Plan: Resolved serum creatinine has normalized (4) Diabetes mellitus Current Visit: Yes Status: Chronic Assessment and Plan: POC ranges from 158-205, continue insulin check A1c 6.9 slightly below goal of 7 (5) GERD (gastroesophageal reflux disease) Current Visit: Yes Status: Chronic Assessment and Plan: contine PPI would benefit from chronic PPI therapy (6) Hypertension Current Visit: Yes Status: Chronic Assessment and Plan: BP at goal for patient's age (7) Pre-syncope Current Visit: Yes Status: Acute Assessment and Plan: Family declined on ECF rehabilitation but agreeable to home health She denies any further episodes tolerated physical therapy Due to anemia and deconditioning also concerning for bradycardia / cardiac arrythamias Echo showed LVEF 60-65%, indeterminate diastolic function, severe pulm HTN Moderate to severe TR consulted cardiology for further eval (8) Bradycardia Current Visit: Yes Status: Acute Assessment and Plan: Resolved EKG showed Bradycardia, atrial flutter with slow vent rate consulted cardiology for further eval had given Glucagon 1mg IM x 1 dose Held Cardizem and Metoprolol May need pacemaker placement Appreciate card recommendations cont gentle IV hydration will transfer the pt to step down unit Patient does need to stay in the hospital more than 2 midnights due to his complex medical problems. So we will change him to full admission today. I did review my colleague Dr. Louis's H & P including HPI, PMH, PSH, FH, SH, and ROS no changes noticed (9) UTI (urinary tract infection) Current Visit: Yes Status: Acute Assessment and Plan: Urine cx e-coli pansensitive started her on Rocephin IV, switched to cephalexin, has been adequately treated - Time Spent with Patient Total time spent is greater than 50% in coordination of care (as documented) at patient's floor/unit and/or counseling patient: Internal Medicine: Result - Labs CBC & Chem 7: 04/04/19 05:02 04/04/19 05:02 Labs: Short CBC 04/04/19 Range/Units 05:02 WBC 8.1 (4.3-11.1) K/mcL Hgb 7.6 L (11.5-15.4) g/dL Hct 25.7 L (35.3-44.9) % Plt Count 224 (140-400) K/mcL Neutrophils # 5.9 (1.6-8.9) K/mcL BMP 04/04/19 05:02 Sodium 137 Potassium 4.1 Chloride 97 L Carbon Dioxide 34 H BUN 19 Creatinine 0.92 Glucose 157 H Calcium 9.7 - ABG Interpretation ABG results: ABG ABG pH 7.39 pH Units (7.32-7.45) 03/31/19 08:49 ABG pCO2 44 mmHg (35-45) 03/31/19 08:49 ABG pO2 75 mmHg (85-104) L 03/31/19 08:49 ABG O2 Saturation 95 % (95-98) 03/31/19 08:49 PT/INR, D-dimer PT 14.7 Seconds (9.4-12.1) H 04/04/19 05:02 - VTE Documentation of Mechanical Device: Graduated compression elastic hosiery Consult Discharge Plan - Plan Referrals: Scotty,Isabel Segura CNP [Primary Care Provider] - 04/04/19 9:00 am () (1) Afib Qualifiers: Atrial fibrillation type: chronic Qualified Code(s): I48.2 - Chronic atrial fibrillation (2) Anemia Qualifiers: Anemia type: unspecified type Qualified Code(s): D64.9 - Anemia, unspecified (4) Diabetes mellitus Qualifiers: Diabetes mellitus type: type 2 Diabetes mellitus jail insulin use: without watermelon inspector use Diabetes mellitus complication status: without complication Qualified Code(s): E11.9 - Type 2 diabetes mellitus without complications (5) GERD (gastroesophageal reflux disease) Qualifiers: Esophagitis presence: without esophagitis Qualified Code(s): K21.9 - Gastro- esophageal reflux disease without esophagitis (6) Hypertension Qualifiers: Hypertension type: essential hypertension Qualified Code(s): I10 - Essential (primary) hypertension (9) UTI (urinary tract infection) Qualifiers: Urinary tract infection type: acute cystitis Hematuria presence: without hematuria Qualified Code(s): N30.00 - Acute cystitis without hematuria
[2019-04-04] MEDS: risperiDONE 0.25 MG TABLET PO SCH (21:16)
[2019-04-05] MEDS: Acetaminophen 325 MG TABLET PO PRN (01:06)
[2019-04-05 06:41] LABS: Basophils % 0.2 %; Eosinophils # 0.1 K/mcL (0.0-0.6); Eosinophils % 1.1 %; Hematocrit 25.7 % (35.3-44.9); Hemoglobin 7.6 g/dL (11.5-15.4); Immature Granulocytes % 0.7 % (0-4); Lymphocytes # 0.9 K/mcL (0.6-4.6); Lymphocytes % 11.7 %; Mean Corpuscular HGB Conc 29.6 g/dL (31.6-35.5); Mean Corpuscular Hemoglobin 27.2 pg (28.0-33.3); Mean Corpuscular Volume 92.1 fL (83.0-100.0); Mean Platelet Volume 10.8 fL (9.4-12.4); Monocytes # 1.2 K/mcL (0.0-1.3); Monocytes % 15.3 %; Neutrophils # 5.7 K/mcL (1.6-8.9); Platelet Count 215 K/mcL (140-400); Red Blood Count 2.79 M/mcL (3.82-4.97)
[2019-04-05 07:00] LABS: BUN/Creatinine Ratio 23 (6-26); Blood Urea Nitrogen 22 mg/dL (8-23); Calcium 9.5 mg/dL (8.6-10.3); Carbon Dioxide 32 mEq/L (23-29); Chloride 98 mEq/L (98-107); Glucose 172 mg/dL (70-105); Magnesium 1.7 mg/dL (1.6-2.6); Osmolality,Calculated 293 (280-300); Potassium 4.2 mEq/L (3.5-5.1); Sodium 138 mEq/L (136-145); eGFR For African Americans > 60 (> 60); eGFR For Non-African Americans 55 (> 60)
[2019-04-05 07:04] LABS: INR 1.8
[2019-04-05] MEDS: Magnesium Oxide 400 MG TABLET PO SCH (08:02)
[2019-04-05] MEDS: Cholecalciferol (D-3) 1,000 UNIT (25MCG) TABLET PO SCH (08:02)
[2019-04-05] MEDS: Furosemide 40 MG TABLET PO SCH (08:02)
[2019-04-05] MEDS: Ascorbic Acid 500 MG TABLET PO SCH (08:02)
[2019-04-05] MEDS: amLODIPine 5 MG TABLET PO SCH (08:02)
[2019-04-05] MEDS: Aspirin 81 MG TAB.CHEW PO SCH (08:02)
[2019-04-05] MEDS: Insulin LISPRO 300 UNITS/3 ML VIAL SQ SCH ×4 (08:03→21:27)
--- NOTE | 2019-04-05 14:11 | Internal Med Progress Note ---
Hospitalist Progress Note - Encounter Date of Encounter: 04/05/19 Time of Encounter: 10:45 - Subjective Interval History: Ms Singer INR trended up to 1.8 today almost at goal. She is tolerating her meals and physical therapy GEN: Denies fever, chills or malaise HEENT: Denies headache blurriness, or dysphagia RESP: Denies SOB or cough CV: Denies chest pain or palpitations GI: Denies Nausea, vomiting, diarrhea or constipation Reviewed current in hospital medications with modifications see orders Reviewed Routine labs - Exam Vitals: Temp Pulse Resp BP Pulse Ox 97.9 F 78 16 138/68 98 04/05/19 11:13 04/05/19 11:13 04/05/19 11:13 04/05/19 11:13 04/05/19 08:21 Exam: GEN: NAD, A&O x 3, Pleasant and conversant SKIN: [place] warm acyanotic not jaundice HEART: Irregularly irregular rate and rhythm systolic murmur appreciated 3/6 LUNGS: CTA no wheeze or crackles, overall non labored ABDOMEN; Soft, non tender or distended, BS x 4 normactive EXT: No LE edema, Pedal pulses 1+, radial pulses 2+ PSYCH: Mood and affect is appropriate - Assessment and Plan (1) Afib Current Visit: Yes Status: Chronic Assessment and Plan: Rate controlled warfarin restarted INR slowly trending up 1.1, 1.2, 1.3 not typical for this insidious trending but upon further discussion with patient and family is now attributed to patient increased dietary fibers-salads, she stated that she would rather eat salads than take MiraLAX daily. She was instructed to continue to maintain her diet and at the pharmacist will adjust warfarin accordingly. INR 1.8 today. Patient still not agreeable to be discharged with a heparin bridge. She denies any further episode of bleed, sp EGD was unremarkable, colonoscopy- colonic angioectasis and hemmorrhoids which could be likely source of her bleed. Discussed with patient and her family risk this is benefits of anticoagulation. They agreed to continue with anticoagulation. Anticipate discharge tomorrow (2) Anemia Current Visit: Yes Status: Acute Assessment and Plan: denies any further episode of bleed, sp EGD was unremarkable, colonoscopy- colonic angioectasis and hemmorrhoids which could be likely source of her bleed. Discussed with patient and her family risk this is benefits of anticoagulation. They agreed to continue with anticoagulation. Workup for anemia just suggest anemia of chronic disease with elevated ferritin, and supratherapeutic B12 and folate. Hemoglobin remains stable at 7.6 today, was 7.6 yesterday, discussed with patient's about possibility of transfusion, if hgb drops below 7 she will think about it (3) Diabetes mellitus Current Visit: Yes Status: Chronic Assessment and Plan: POC ranges from 161-246, continue insulin check A1c 6.9 slightly below goal of 7 (4) STEPHIE (acute kidney injury) Current Visit: Yes Status: Acute Assessment and Plan: Resolved serum creatinine has normalized (5) GERD (gastroesophageal reflux disease) Current Visit: Yes Status: Chronic (6) Hypertension Current Visit: Yes Status: Chronic (7) Pre-syncope Current Visit: Yes Status: Acute (8) Bradycardia Current Visit: Yes Status: Acute (9) UTI (urinary tract infection) Current Visit: Yes Status: Acute - Time Spent with Patient Total time spent is greater than 50% in coordination of care (as documented) at patient's floor/unit and/or counseling patient: Internal Medicine: Result - Labs CBC & Chem 7: 04/05/19 06:13 04/05/19 06:13 Labs: Short CBC 04/05/19 Range/Units 06:13 WBC 8.0 (4.3-11.1) K/mcL Hgb 7.6 L (11.5-15.4) g/dL Hct 25.7 L (35.3-44.9) % Plt Count 215 (140-400) K/mcL Neutrophils # 5.7 (1.6-8.9) K/mcL BMP 04/05/19 06:13 Sodium 138 Potassium 4.2 Chloride 98 Carbon Dioxide 32 H BUN 22 Creatinine 0.96 Glucose 172 H Calcium 9.5 - ABG Interpretation ABG results: ABG ABG pH 7.39 pH Units (7.32-7.45) 03/31/19 08:49 ABG pCO2 44 mmHg (35-45) 03/31/19 08:49 ABG pO2 75 mmHg (85-104) L 03/31/19 08:49 ABG O2 Saturation 95 % (95-98) 03/31/19 08:49 PT/INR, D-dimer PT 20.0 Seconds (9.4-12.1) H 04/05/19 06:13 - VTE Documentation of Mechanical Device: Graduated compression elastic hosiery Consult Discharge Plan - Plan Referrals: Isabel Fajardo CNP [Primary Care Provider] - 04/04/19 9:00 am () (1) Afib Qualifiers: Atrial fibrillation type: chronic Qualified Code(s): I48.2 - Chronic atrial fibrillation (2) Anemia Qualifiers: Anemia type: due to chronic kidney disease Chronic kidney disease stage: stage 3 (moderate) Qualified Code(s): N18.3 - Chronic kidney disease, stage 3 (moderate); D63.1 - Anemia in chronic kidney disease (3) Diabetes mellitus Qualifiers: Diabetes mellitus type: type 2 Diabetes mellitus vermin exterminator insulin use: wit hout mcfp use Diabetes mellitus complication status: without complication Qualified Code(s): E11.9 - Type 2 diabetes mellitus without complications (5) GERD (gastroesophageal reflux disease) Qualifiers: Esophagitis presence: without esophagitis Qualified Code(s): K21.9 - Gastro-esophageal reflux disease without esophagitis (6) Hypertension Qualifiers: Hypertension type: essential hypertension Qualified Code(s): I10 - Essential (primary) hypertension (9) UTI (urinary tract infection) Qualifiers: Urinary tract infection type: acute cystitis Hematuria presence: without hematuria Qualified Code(s): N30.00 - Acute cystitis without hematuria
[2019-04-05] MEDS ORDERED: *HR* Warfarin 2 MG TABLET PO ONE (18:00)
[2019-04-05] MEDS: risperiDONE 0.25 MG TABLET PO SCH (21:27)
[2019-04-06 05:15] LABS: Basophils % 0.1 %; Eosinophils # 0.1 K/mcL (0.0-0.6); Eosinophils % 1.1 %; Hematocrit 25.2 % (35.3-44.9); Hemoglobin 7.4 g/dL (11.5-15.4); Immature Granulocytes % 0.5 % (0-4); Lymphocytes # 0.9 K/mcL (0.6-4.6); Lymphocytes % 10.8 %; Mean Corpuscular HGB Conc 29.4 g/dL (31.6-35.5); Mean Corpuscular Hemoglobin 27.5 pg (28.0-33.3); Mean Corpuscular Volume 93.7 fL (83.0-100.0); Mean Platelet Volume 10.9 fL (9.4-12.4); Monocytes % 12.2 %; Neutrophils # 5.9 K/mcL (1.6-8.9); Platelet Count 205 K/mcL (140-400); Red Blood Count 2.69 M/mcL (3.82-4.97); Red Cell Distribution Width 15.9 % (11.5-14.5); Segmented Neutrophils % 75.3 %; White Blood Count 7.9 K/mcL (4.3-11.1)
[2019-04-06 05:30] LABS: INR 1.9; Prothrombin Time 21.3 Seconds (9.4-12.1)
[2019-04-06 05:34] LABS: BUN/Creatinine Ratio 26 (6-26); Blood Urea Nitrogen 23 mg/dL (8-23); Calcium 9.1 mg/dL (8.6-10.3); Carbon Dioxide 32 mEq/L (23-29); Chloride 99 mEq/L (98-107); Glucose 153 mg/dL (70-105); Magnesium 1.7 mg/dL (1.6-2.6); Osmolality,Calculated 287 (280-300); Potassium 4.2 mEq/L (3.5-5.1); Sodium 135 mEq/L (136-145); eGFR For African Americans > 60 (> 60); eGFR For Non-African Americans > 60 (> 60)
[2019-04-06] MEDS: Cholecalciferol (D-3) 1,000 UNIT (25MCG) TABLET PO SCH (08:44)
[2019-04-06] MEDS: amLODIPine 5 MG TABLET PO SCH (08:45)
[2019-04-06] MEDS: Aspirin 81 MG TAB.CHEW PO SCH (08:45)
[2019-04-06] MEDS: Ascorbic Acid 500 MG TABLET PO SCH (08:45)
[2019-04-06] MEDS: Insulin LISPRO 300 UNITS/3 ML VIAL SQ SCH ×2 (08:45→13:11)
[2019-04-06] MEDS: Furosemide 40 MG TABLET PO SCH (08:45)
[2019-04-06] MEDS: Magnesium Oxide 400 MG TABLET PO SCH (08:45)
[2019-04-06 08:56] VITALS: BP 135/72
--- NOTE | 2019-04-06 09:40 | Discharge Summary ---
- NOTES TO OUTPATIENT PROVIDER Notes to Outpatient Provider: Posthospital discharge for generalized weakness, chronic afib on chronic anticoagulation with warfarin. Patient will need close monitoring of her INR and rather than the typical INR goal of 2-3, giving endoscopic findings patient should be INR of 1.9-2.2 due to her increased risk for bleeding. Anticoagulation needs to be reevaluated on an outpatient basis as the risk for stroke from her afib versud risk of GI hemorrhage Date of Encounter: 04/06/19 Time of Encounter: 09:32 - Discharge Diagnosis (1) Afib Priority: Primary Status: Chronic Assessment and Plan: INR yesterday was 1.8 today 1.9, given her risk of GI bleed INR should be between 1.9 2.2. Overall she will need to be reevaluated for anticoagulation due to her increased risk for GI hemorrhage given the EGD colonoscopy finding. She was advised to refrain from any NSAID use. She was encouraged to increase her fiber intake to avoid straining. Rate controlled warfarin restarted INR slowly trending up 1.1, 1.2, 1.3 not typical for this insidious trending but upon further discussion with patient and family is now attributed to patient increased dietary fibers-salads, she stated that she would rather eat salads than take MiraLAX daily. She was instructed to continue to maintain her diet and at the pharmacist will adjust warfarin accordingly. Patient still not agreeable to be discharged with a heparin bridge. She denies any further episode of bleed, sp EGD was unremarkable, colonoscopy- colonic angioectasis and hemmorrhoids which could be likely source of her bleed. Discussed with patient and her family risk this is benefits of anticoagulation. They agreed to continue with anticoagulation. Anticipate discharge tomorrow Qualifiers: Atrial fibrillation type: chronic Qualified Code(s): I48.2 - Chronic atrial fibrillation (2) Anemia Priority: Primary Status: Acute Assessment and Plan: hbg at baseline 7.4 denies any further episode of bleed, INR yesterday was 1.8 today 1.9, given her risk of GI bleed INR should be between 1.9 2.2. Overall she will need to be reevaluated for anticoagulation due to her increased risk for GI hemorrhage given the EGD colonoscopy finding. She was advised to refrain from any NSAID use. She was encouraged to increase her fiber intake to avoid straining. sp EGD was unremarkable, colonoscopy- colonic angioectasis and hemmorrhoids whi ch could be likely source of her bleed. Discussed with patient and her family risk this is benefits of anticoagulation. They agreed to continue with anticoagulation. Workup for anemia just suggest anemia of chronic disease with elevated ferritin, and supratherapeutic B12 and folate. Hemoglobin remains stable at 7.6 today, was 7.6 yesterday, discussed with patient's about possibility of transfusion, if hgb drops below 7 she will think about it Qualifiers: Anemia type: due to chronic kidney disease Chronic kidney disease stage: stage 3 (moderate) Qualified Code(s): N18.3 - Chronic kidney disease, stage 3 (moderate); D63.1 - Anemia in chronic kidney disease (3) Diabetes mellitus Priority: Secondary Status: Chronic Assessment and Plan: POC ranges from 161-246, was managed with insulin check A1c 6.9 slightly below goal of 7. We will hold her Amaryl until she is seen by her primary care physician Qualifiers: Diabetes mellitus type: type 2 Diabetes mellitus superintendent terminal insulin use: without superintendent terminal use Diabetes mellitus complication status: without complication Qualified Code(s): E11.9 - Type 2 diabetes mellitus without complications (4) STEPHIE (acute kidney injury) Priority: Secondary Status: Acute Assessment and Plan: Resolved serum creatinine has normalized (5) GERD (gastroesophageal reflux disease) Priority: Secondary Status: Chronic Assessment and Plan: Continue his to tony Zantac Qualifiers: Esophagitis presence: without esophagitis Qualified Code(s): K21.9 - Gastro-esophageal reflux disease without esophagitis (6) Hypertension Priority: Secondary Status: Chronic Assessment and Plan: BP at goal for patient's age and comorbidities Qualifiers: Hypertension type: essential hypertension Qualified Code(s): I10 - Essential (primary) hypertension (7) Pre-syncope Priority: Secondary Status: Acute Assessment and Plan: Family declined on ECF rehabilitation but agreeable to home health She denies any further episodes tolerated physical therapy Due to anemia and deconditioning also concerning for bradycardia / cardiac arrythamias Echo showed LVEF 60-65%, indeterminate diastolic function, severe pulm HTN Moderate to severe TR consulted cardiology for further eval (8) Bradycardia Priority: Secondary Status: Acute Assessment and Plan: Resolved EKG showed Bradycardia, atrial flutter with slow vent rate consulted cardiology for further eval had given Glucagon 1mg IM x 1 dose Held Cardizem and Metoprolol May need pacemaker placement Appreciate card recommendations cont gentle IV hydration will transfer the pt to step down unit Patient does need to stay in the hospital more than 2 midnights due to his complex medical problems. So we will change him to full admission today. I did review my colleague Dr. Louis's H & P including HPI, PMH, PSH, FH, SH, and ROS no changes noticed (9) UTI (urinary tract infection) Priority: Secondary Status: Acute Assessment and Plan: Urine cx e-coli pansensitive started her on Rocephin IV, switched to cephalexin, has been adequately treated Qualifiers: Urinary tract infection type: acute cystitis Hematuria presence: without hematuria Qualified Code(s): N30.00 - Acute cystitis without hematuria Hospital course: Ms. Singer is a 83 year old female was hospitalized for generalized weakness, noted to have acute anemia, workup included EGD colonoscopy. She also was noted to be in atrial fibrillation with rapid particular response upon treatment became bradycardic. Hospitalization was prolonged due to her need for a nticoagulation. She is going to be discharged and INR 1.9 giving her high risk for GI bleed would recommend INR between 1.9 2.2 rather than a typical 2-3. She is to repeat PT INR and CBC 04/07/2019 with results called into primary care physician Coumadin clinic Discharge discussed with: patient, family, nurse, social work, case management, trial consultant - Time Spent with Patient Total time spent providing and/or coordinating discharge services: 60 mins Specific discharge activities: Instructed patient to follow up with the Coumadin clinic Sunday to get a INR. She is to continue to follow a high-fiber diet and that the pharmacist can adjust warfarin dose accordingly. She is to report to PCP if you notice any melena or hematochezia - Discharge Medications Prescriptions: New Carvedilol [Coreg] 3.125 mg PO BIDWM #60 tablet Losartan [Cozaar] 50 mg PO DAILY #30 tablet Magnesium Oxide [Mag-Ox] 400 mg PO DAILY tablet Polyethylene Glycol 3350 [MiraLAX] 17 gm PO DAILY PRN #527 gm PRN Reason: Constipation amLODIPine [Norvasc] 1 mg PO DAILY #30 tablet Warfarin [Coumadin] 2 mg PO 1800 #30 tablet Continued Cyanocobalamin (B-12) [Vitamin B12] 1,000 mcg SQ QMONTH Aspirin 81 mg PO DAILY Pravastatin Sodium [Pravachol] 40 mg PO QPM Furosemide [Lasix] 40 mg PO QAM raNITIdine HCl [Ranitidine HCl] 300 mg PO QPM Ascorbate Calcium [Vitamin C] 500 mg PO DAILY Calcium Carbonate/Vitamin D3 [Calcium 600 + Vit D Tablet] 2 tab PO DAILY Cholecalciferol (Vitamin D3) [Vitamin D3] 2,000 units PO DAILY DULoxetine [Cymbalta] 30 mg PO QPM risperiDONE [RisperDAL] 0.25 mg PO HS Discontinued Warfarin [Coumadin] 2 mg PO SUWEFR Losartan [Cozaar] 25 mg PO QAM Spironolactone [Aldactone] 25 mg PO QAM Glimepiride [Amaryl] 1 mg PO 1200 Pantoprazole Sodium [Protonix] 40 mg PO QAM Acetaminophen [Tylenol] 1,000 mg PO BID Diltiazem CD (24hr) [Cardizem CD] 240 mg PO QAM Docusate Sodium [Dulcolax Stool Softener] 100 mg PO QAM Magnesium Oxide [Magnesium] 500 mg PO QAM Metoprolol [Lopressor] 25 mg PO BID Warfarin Sodium 1 mg PO Health system Medications: Aspirin 81 mg PO DAILY 04/16/15 [History] Cyanocobalamin (B-12) [Vitamin B12] 1,000 mcg SQ QMONTH 04/16/15 [History] Pravastatin Sodium [Pravachol] 40 mg PO QPM 04/16/15 [History] Furosemide [Lasix] 40 mg PO QAM 03/25/19 [History] raNITIdine HCl [Ranitidine HCl] 300 mg PO QPM 03/25/19 [History] Ascorbate Calcium [Vitamin C] 500 mg PO DAILY 03/27/19 [History] Calcium Carbonate/Vitamin D3 [Calcium 600 + Vit D Tablet] 2 tab PO DAILY 03/27/19 [History] Cholecalciferol (Vitamin D3) [Vitamin D3] 2,000 units PO DAILY 03/27/19 [History] DULoxetine [Cymbalta] 30 mg PO QPM 03/27/19 [History] risperiDONE [RisperDAL] 0.25 mg PO HS 03/27/19 [History] Carvedilol [Coreg] 3.125 mg PO BIDWM #60 tablet 04/06/19 [Rx] Losartan [Cozaar] 50 mg PO DAILY #30 tablet 04/06/19 [Rx] Magnesium Oxide [Mag-Ox] 400 mg PO DAILY tablet 04/06/19 [Rx] Polyethylene Glycol 3350 [MiraLAX] 17 gm PO DAILY PRN #527 gm 04/06/19 [Rx] Warfarin [Coumadin] 2 mg PO 1800 #30 tablet 04/06/19 [Rx] amLODIPine [Norvasc] 1 mg PO DAILY #30 tablet 04/06/19 [Rx] Allergies/Adverse Reactions: Allergy/AdvReac Type Severity Reaction Status Date / Time glimepiride [From Amaryl] Allergy See Verified 03/27/19 11:23 Comments gabapentin AdvReac See Verified 03/27/19 11:23 Comments prednisone AdvReac See Verified 03/27/19 11:33 Comments Date of admission: 03/27/19 10:14 Primary care physician: Isabel Fajardo CNP Consults: 03/25/19 21:43 Consult to Gastroenterology [CONS] Stat Consulting Provider: Gastroenterology Shannon Reason for Consult: Possible GI bleed Call Completed: No 03/27/19 11:01 Consult to Cardiology [CONS] Routine Comment: Consulting Provider: Cardiology Shannon Reason for Consult: Bradycardia..Need Card clearence for EGD / Colonoscopy Time Notified: 11:02 Call Completed: Yes 03/29/19 10:33 Consult to Nephrology [CONS] Routine Consulting Provider: Kidney Shannon/JUWAN/SAM/FANG Reason for Consult: STEPHIE Call Completed: No 03/30/19 14:06 Consult for Pharmacy Education [CONS] Routine Reason for Consult: warfarin dose Call Completed: No 03/31/19 08:25 Consult to Occupational Therapy [CONS] Routine Comment: Evaluate, develop and implement POC Reason for Consult: D/C planning reports lives home alone with Senior meals at lunch, requires x1 assist Does patient have active BEDREST order?: No Is patient medically & hemodynamically stable?: Yes Patient assessed for mobility or mobilized this visit?: No Consult to Physical Therapy [CONS] Routine Comment: Evaluate, develop and implement POC Reason for Consult: D/C planning reports lives home alone with Senior meals at lunch, requires x1 assist Does patient have active BEDREST order?: No Is patient medically & hemodynamically stable?: Yes Patient assessed for mobility or mobilized this visit?: No Consult to Manager Cardiology [CONS] Routine Reason for SW Consult: D/C planning reports lives home alone with Senior meals at lunch, requires x1 assist Discharging clinician: No Aquino - Constitutional Vitals: Temp Pulse Resp BP Pulse Ox 98.0 F 121 14 135/72 97 04/06/19 08:55 04/06/19 08:55 04/06/19 08:55 04/06/19 08:55 04/06/19 08:55 Exam: GEN: NAD, A&O x 3, Pleasant and conversant SKIN: [place] warm acyanotic not jaundice HEART: Irregularly irregular rate and rhythm 3/6 systolic murmur appreciated LUNGS: CTA no wheeze or crackles, overall non labored ABDOMEN; Soft, non tender or distended, BS x 4 normactive EXT: No LE edema, Pedal pulses 1+, radial pulses 2+ PSYCH: Mood and affect is appropriate - Patient Status Disposition: Home Health Service Condition: Good Overall status at discharge: patient is back to baseline - Discharge Instructions Instructions: Atrial Fibrillation (DC), Anemia (GEN) Follow Up With: Isabel Fajardo CNP [Primary Care Provider] - 04/04/19 9:00 am () - Diet and Activity Activity: as per physical therapy Diet: diabetic diet, low fat, low cholesterol, low salt diet - VTE Documentation of Mechanical Device: Graduated compression elastic hosiery
--- NOTE | 2019-04-06 10:17 | Physician Discharge Referral ---
Home Health/Hosp Referral Info Transfer to: Home Health Provider in Charge Post Discharge: PCP - Diagnosis (1) Afib Priority: Primary Status: Chronic (2) Anemia Priority: Primary Status: Acute (3) Diabetes mellitus Priority: Secondary Status: Chronic (4) STEPHIE (acute kidney injury) Priority: Secondary Status: Acute (5) GERD (gastroesophageal reflux disease) Priority: Secondary Status: Chronic (6) Hypertension Priority: Secondary Status: Chronic (7) Pre-syncope Priority: Secondary Status: Acute (8) Bradycardia Priority: Secondary Status: Acute (9) UTI (urinary tract infection) Priority: Secondary Status: Acute - Respiratory Orders Smoking Cessation: Smoking cessation has been advised. For more information, call the [place] Tobacco Quit Line at 3-531-BNGH-NOW. - Diet/Nutrition Diet/Nutrition Orders: Cardiac - Activity Activity Orders: Up ad hoang, Walker - Services Needed Following services are medically necessary services: Nursing, Home Health Aide, Physical Therapy, Occupational Therapy - Transfer Medications Prescriptions: Carvedilol [Coreg] 3.125 mg PO BIDWM #60 tablet Warfarin [Coumadin] 2 mg PO 1800 #30 tablet Losartan [Cozaar] 50 mg PO DAILY #30 tablet Polyethylene Glycol 3350 [MiraLAX] 17 gm PO DAILY PRN #527 gm PRN Reason: Constipation amLODIPine [Norvasc] 1 mg PO DAILY #30 tablet Home Medications: Aspirin 81 mg PO DAILY 04/16/15 [History] Cyanocobalamin (B-12) [Vitamin B12] 1,000 mcg SQ QMONTH 04/16/15 [History] Pravastatin Sodium [Pravachol] 40 mg PO QPM 04/16/15 [History] Furosemide [Lasix] 40 mg PO QAM 03/25/19 [History] raNITIdine HCl [Ranitidine HCl] 300 mg PO QPM 03/25/19 [History] Ascorbate Calcium [Vitamin C] 500 mg PO DAILY 03/27/19 [History] Calcium Carbonate/Vitamin D3 [Calcium 600 + Vit D Tablet] 2 tab PO DAILY 03/27/19 [History] Cholecalciferol (Vitamin D3) [Vitamin D3] 2,000 units PO DAILY 03/27/19 [Histo ry] DULoxetine [Cymbalta] 30 mg PO QPM 03/27/19 [History] risperiDONE [RisperDAL] 0.25 mg PO HS 03/27/19 [History] Carvedilol [Coreg] 3.125 mg PO BIDWM #60 tablet 04/06/19 [Rx] Losartan [Cozaar] 50 mg PO DAILY #30 tablet 04/06/19 [Rx] Magnesium Oxide [Mag-Ox] 400 mg PO DAILY tablet 04/06/19 [Rx] Polyethylene Glycol 3350 [MiraLAX] 17 gm PO DAILY PRN #527 gm 04/06/19 [Rx] Warfarin [Coumadin] 2 mg PO 1800 #30 tablet 04/06/19 [Rx] amLODIPine [Norvasc] 1 mg PO DAILY #30 tablet 04/06/19 [Rx] Allergies/Adverse Reactions: Allergy/AdvReac Type Severity Reaction Status Date / Time glimepiride [From Amaryl] Allergy See Verified 03/27/19 11:23 Comments gabapentin AdvReac See Verified 03/27/19 11:23 Comments prednisone AdvReac See Verified 03/27/19 11:33 Comments Certification: Further, I certify that my clinical findings support that this patient is homebound (i.e. absences from home require considerable and taxing effort and are for medical reasons or voodoo services or infrequently or short duration when for other reasons) because: Homebound Reason: Leaving home requires considerable and taxing effort due to condition Attestation: My signature below is to certify that this patient is under my care and that I, or nurse practitioner, or a physician's assistant manager bilingual working with me, has a [id number] encounter with this patient.
[2019-04-06] MEDS ORDERED: *HR* Warfarin 2 MG TABLET PO ONE (18:00)
== END 2019-04-06 15:08 | disposition home health service (06) | DRG 682 ==
LOC: EMEROOARM 19:05 → 3BNU 19:05 → SUATTDRO 21:24 → 3BNU 22:10 → SUATTDRO 03-27 10:14 → 2NENU 03-27 13:20
PROVIDERS: ADMIT Internal Medicine Nephrology; ATTEND Pharmacist
PROC: ENDOCCB (2019-03-30 09:00)

== ENCOUNTER 2019-09-01 21:45 | Observation (INO) ==
[2019-09-01] MEDS ORDERED: Ibuprofen 600 MG TABLET PO ONE (22:21)
[2019-09-01] MEDS ORDERED: *HR* FentaNYL (PF) 100 MCG/2 ML VIAL IVP ONE (22:24)
[2019-09-01] MEDS ORDERED: Isovue-370 500 ML BOTTLE IVP ONE (22:26)
[2019-09-01] MEDS ORDERED: Ondansetron 4 MG/2 ML VIAL IVP ONE (22:28)
[2019-09-01] MEDS ORDERED: 0.9 % Sodium Chloride 500 ML IVC ONE (22:29)
[2019-09-01 22:58] LABS: Basophils % 0.1 %; Eosinophils % 0.1 %; Hematocrit 22.6 % (35.3-44.9); Hemoglobin 6.8 g/dL (11.5-15.4); Immature Granulocytes % 0.8 % (0-4); Lymphocytes # 0.8 K/mcL (0.6-4.6); Lymphocytes % 6.8 %; Mean Corpuscular HGB Conc 30.1 g/dL (31.6-35.5); Mean Corpuscular Hemoglobin 25.5 pg (28.0-33.3); Mean Corpuscular Volume 84.6 fL (83.0-100.0); Mean Platelet Volume 11.4 fL (9.4-12.4); Monocytes # 1.6 K/mcL (0.0-1.3); Monocytes % 13.7 %; Neutrophils # 9.4 K/mcL (1.6-8.9); Platelet Count 206 K/mcL (140-400); Red Blood Count 2.67 M/mcL (3.82-4.97); Segmented Neutrophils % 78.5 %; White Blood Count 11.9 K/mcL (4.3-11.1)
[2019-09-01 23:08] LABS: INR 2.4; Prothrombin Time 27.3 Seconds (9.4-12.1)
[2019-09-01 23:17] LABS: Albumin 3.7 g/dL (3.5-5.7); Albumin/Globulin Ratio 1.6 (1.1-2.2); Bilirubin,Indirect 2.2 mg/dL (0.0-1.0); Bilirubin,Total 6.2 mg/dL (0.3-1.0); Calcium 9.3 mg/dL (8.6-10.3); Globulin 2.3 g/dL (2.4-3.5); Potassium 3.8 mEq/L (3.5-5.1)
[2019-09-01] MEDS ORDERED: Piperacillin/Tazobactam 3.375 GM in 0.9 % Sodium Chloride Mini Bag 100 ML IVPB ONE (23:49)
[2019-09-02] MEDS ORDERED: *HR* Phytonadione 5 MG TABLET PO ONE (00:25)
[2019-09-02] MEDS ORDERED: 0.9 % Sodium Chloride 500 ML ONE ×3 (02:18→17:16)
[2019-09-02] MEDS ORDERED: Naloxone 0.4 MG/ML INJ IVP PRN (05:46)
[2019-09-02] MEDS: 0.9 % Sodium Chloride 1,000 ML IVC SCH ×2 (06:23→14:32)
[2019-09-02] MEDS ORDERED: D5% in Water 1,000 ML IVC PRN (06:25)
[2019-09-02] MEDS ORDERED: Dextrose Gel 15 GM/37.5 ML TUBE PO PRN ×2 (06:25)
[2019-09-02] MEDS: Piperacillin/Tazobactam 3.375 GM in 0.9 % Sodium Chloride Mini Bag 100 ML IVPB SCH ×3 (08:40→23:51)
[2019-09-02] MEDS ORDERED: Ondansetron 4 MG/2 ML VIAL IVP PRN (09:08)
[2019-09-02 09:19] LABS: Hematocrit 31.3 % (35.3-44.9); Mean Corpuscular HGB Conc 31.3 g/dL (31.6-35.5); Mean Corpuscular Hemoglobin 25.9 pg (28.0-33.3); Mean Corpuscular Volume 82.6 fL (83.0-100.0); Mean Platelet Volume 10.9 fL (9.4-12.4); Platelet Count 212 K/mcL (140-400); Red Blood Count 3.79 M/mcL (3.82-4.97); Red Cell Distribution Width 19.5 % (11.5-14.5); White Blood Count 10.8 K/mcL (4.3-11.1)
[2019-09-02 09:20] LABS: INR 2.2; Prothrombin Time 25.2 Seconds (9.4-12.1)
[2019-09-02 09:21] LABS: Hemoglobin 9.8 g/dL (11.5-15.4)
[2019-09-02 09:34] LABS: Albumin 3.8 g/dL (3.5-5.7); Albumin/Globulin Ratio 1.6 (1.1-2.2); Bilirubin,Total 7.5 mg/dL (0.3-1.0); Calcium 9.2 mg/dL (8.6-10.3); Globulin 2.4 g/dL (2.4-3.5); Total Protein 6.2 g/dL (6.4-8.9)
[2019-09-02] MEDS ORDERED: 0.9 % Sodium Chloride 250 ML ONE (10:18)
[2019-09-02] MEDS: Insulin LISPRO 300 UNITS/3 ML VIAL SQ SCH ×2 (12:13→18:00)
[2019-09-02 14:22] LABS: INR 1.8; Prothrombin Time 20.5 Seconds (9.4-12.1)
[2019-09-02] MEDS ORDERED: *HR* FentaNYL (PF) 100 MCG/2 ML VIAL ONE (14:56)
[2019-09-02] MEDS ORDERED: *HR* Propofol 200 MG/20 ML VIAL IVP ONE (14:56)
[2019-09-02] MEDS ORDERED: Ondansetron 4 MG/2 ML VIAL ONE (14:58)
[2019-09-02] MEDS ORDERED: Lidocaine -MPF 2% 2 ML VIAL ONE (14:58)
[2019-09-02] MEDS ORDERED: Lidocaine HCL 4 ML Topical Solution (Laryng-O-Jet Kit Sterile Pak) TP ONE (14:58)
[2019-09-02] MEDS ORDERED: *HR* Succinylcholine 200 MG/10 ML VIAL IVP ONE (14:58)
[2019-09-02] MEDS ORDERED: EPHEDrine 50 MG/ML VIAL ONE (15:35)
[2019-09-02] MEDS ORDERED: Indomethacin 50 MG SUPP.RECT RC ONE (16:27)
[2019-09-02] MEDS ORDERED: *HR* Dextrose 50 % in Water (Vial) 50 ML VIAL IVP ONE (16:37)
[2019-09-02] MEDS ORDERED: *HR* Dextrose 50 % in Water (Vial) 50 ML VIAL ONE (16:37)
[2019-09-02] MEDS ORDERED: *HR* Labetalol 20 MG/4 ML SYRINGE IVP PRN (17:15)
[2019-09-02] MEDS ORDERED: *HR* Labetalol 20 MG/4 ML SYRINGE IVP ONE (17:16)
[2019-09-03] MEDS: Insulin LISPRO 300 UNITS/3 ML VIAL SQ SCH ×4 (03:14→17:48)
[2019-09-03] MEDS: *HR* Dextrose 50 % in Water (Syg) 50 ML SYRINGE IVP PRN ×2 (05:41→11:34)
[2019-09-03 08:50] LABS: Basophils % 0.2 %; Eosinophils # 0.1 K/mcL (0.0-0.6); Eosinophils % 0.5 %; Hematocrit 35.1 % (35.3-44.9); Hemoglobin 10.3 g/dL (11.5-15.4); Immature Granulocytes % 0.8 % (0-4); Lymphocytes # 0.7 K/mcL (0.6-4.6); Lymphocytes % 7.3 %; Mean Corpuscular HGB Conc 29.3 g/dL (31.6-35.5); Mean Corpuscular Volume 88.6 fL (83.0-100.0); Mean Platelet Volume 11.5 fL (9.4-12.4); Monocytes # 1.3 K/mcL (0.0-1.3); Monocytes % 13.5 %; Neutrophils # 7.6 K/mcL (1.6-8.9); Nucleated Red Blood Cells 0.2 /100 WBC (0); Platelet Count 206 K/mcL (140-400); Red Blood Count 3.96 M/mcL (3.82-4.97); Red Cell Distribution Width 20.6 % (11.5-14.5); Segmented Neutrophils % 77.7 %; White Blood Count 9.8 K/mcL (4.3-11.1)
[2019-09-03 09:11] LABS: Albumin 3.7 g/dL (3.5-5.7); Albumin/Globulin Ratio 1.5 (1.1-2.2); Bilirubin,Total 4.1 mg/dL (0.3-1.0); Calcium 9.1 mg/dL (8.6-10.3); Globulin 2.5 g/dL (2.4-3.5); Potassium 3.8 mEq/L (3.5-5.1); Total Protein 6.2 g/dL (6.4-8.9)
[2019-09-03] MEDS: Piperacillin/Tazobactam 3.375 GM in 0.9 % Sodium Chloride Mini Bag 100 ML IVPB SCH ×2 (09:41→20:44)
[2019-09-03 13:42] LABS: INR 1.7; Prothrombin Time 19.1 Seconds (9.4-12.1)
[2019-09-03] MEDS: Simethicone 80 MG TAB.CHEW PO PRN (17:42)
[2019-09-04] MEDS: Insulin LISPRO 300 UNITS/3 ML VIAL SQ SCH ×3 (00:06→13:38)
[2019-09-04] MEDS: Simethicone 80 MG TAB.CHEW PO PRN ×2 (02:11→08:48)
[2019-09-04] MEDS ORDERED: Melatonin 3 MG TABLET PO ONE (02:31)
[2019-09-04 06:44] LABS: Basophils % 0.3 %; Eosinophils # 0.1 K/mcL (0.0-0.6); Eosinophils % 0.8 %; Hematocrit 32.9 % (35.3-44.9); Hemoglobin 10.1 g/dL (11.5-15.4); Immature Granulocytes % 0.8 % (0-4); Lymphocytes # 0.7 K/mcL (0.6-4.6); Lymphocytes % 6.9 %; Mean Corpuscular HGB Conc 30.7 g/dL (31.6-35.5); Mean Corpuscular Hemoglobin 26.1 pg (28.0-33.3); Mean Platelet Volume 11.1 fL (9.4-12.4); Monocytes # 1.5 K/mcL (0.0-1.3); Monocytes % 14.1 %; Platelet Count 252 K/mcL (140-400); Red Blood Count 3.87 M/mcL (3.82-4.97); Red Cell Distribution Width 20.6 % (11.5-14.5); Segmented Neutrophils % 77.1 %; White Blood Count 10.3 K/mcL (4.3-11.1)
[2019-09-04 07:06] LABS: Albumin 3.8 g/dL (3.5-5.7); Albumin/Globulin Ratio 1.5 (1.1-2.2); Bilirubin,Total 3.5 mg/dL (0.3-1.0); Calcium 9.7 mg/dL (8.6-10.3); Globulin 2.6 g/dL (2.4-3.5); Potassium 3.6 mEq/L (3.5-5.1); Total Protein 6.4 g/dL (6.4-8.9)
[2019-09-04] MEDS: Piperacillin/Tazobactam 3.375 GM in 0.9 % Sodium Chloride Mini Bag 100 ML IVPB SCH (07:45)
[2019-09-04 14:13] VITALS: BP 175/64
== END 2019-09-04 17:03 | disposition home or self-care (01) ==
LOC: CDU 21:45 → EMEROOARM 21:45 → SUATTDRO 09-02 02:15 → CDU 09-02 03:11 → 3ANU 09-02 17:11
PROVIDERS: ADMIT Internal Medicine; ATTEND Student in an Organized Health Care Education/Training Program

== ENCOUNTER 2020-02-07 13:43 | Inpatient (IN) ==
[2020-02-07 14:59] LABS: Basophils % 0.1 %; Eosinophils % 0.1 %; Hematocrit 27.1 % (35.3-44.9); Hemoglobin 8.6 g/dL (11.5-15.4); Immature Granulocytes % 0.5 % (0-4); Lymphocytes # 0.4 K/mcL (0.6-4.6); Lymphocytes % 2.7 %; Mean Corpuscular HGB Conc 31.7 g/dL (31.6-35.5); Mean Corpuscular Hemoglobin 29.5 pg (28.0-33.3); Mean Corpuscular Volume 92.8 fL (83.0-100.0); Monocytes # 1.3 K/mcL (0.0-1.3); Monocytes % 8.6 %; Neutrophils # 13.3 K/mcL (1.6-8.9); Platelet Count 211 K/mcL (140-400); Red Blood Count 2.92 M/mcL (3.82-4.97); Red Cell Distribution Width 15.3 % (11.5-14.5); White Blood Count 15.1 K/mcL (4.3-11.1)
[2020-02-07 15:01] LABS: INR 1.7
[2020-02-07 15:04] LABS: Activated Partial Thrombo Time 32.4 Seconds (26.0-36.0)
[2020-02-07 15:13] LABS: Albumin 4.1 g/dL (3.5-5.7); Albumin/Globulin Ratio 1.5 (1.1-2.2); Bilirubin,Direct 0.3 mg/dL (0.0-0.2); Bilirubin,Indirect 0.6 mg/dL (0.0-1.0); Bilirubin,Total 0.9 mg/dL (0.3-1.0); Globulin 2.7 g/dL (2.4-3.5); Total Protein 6.8 g/dL (6.4-8.9)
[2020-02-07 15:15] LABS: Calcium 10.1 mg/dL (8.6-10.3); Potassium 3.8 mEq/L (3.5-5.1)
[2020-02-07 15:22] LABS: Troponin I 0.04 ng/mL (< 0.04)
[2020-02-07 15:47] LABS: Magnesium 1.8 mg/dL (1.6-2.6)
[2020-02-07] MEDS: Isovue-370 500 ML BOTTLE IVP ONE ×2 (16:01→16:02)
[2020-02-07] MEDS ORDERED: *HR* HYDROcodone/Acet 7.5/325 mg TABLET PO ONE (16:15)
[2020-02-07 16:33] LABS: Bilirubin,Urine Negative (Negative); Blood,Urine Negative (Negative); Clarity,Urine Clear (Clear); Color,Urine Yellow (Yellow); Glucose,Urine (UA) Normal (Normal); Ketones,Urine Negative (Negative); Leukocyte Esterase,Urine Negative (Negative); Nitrite,Urine Negative (Negative); PH,Urine 6.5 pH Units (5.0-8.0); Protein,Urine Negative (Neg-Trace); Specific Gravity,Urine 1.013 (1.010-1.025); Urobilinogen,Urine Normal (Normal)
[2020-02-07] MEDS ORDERED: Naloxone 0.4 MG/ML INJ IVP PRN (17:03)
[2020-02-07] MEDS ORDERED: Ondansetron 4 MG/2 ML VIAL IVP PRN (17:03)
[2020-02-07] MEDS ORDERED: Dextrose Gel 15 GM/37.5 ML TUBE PO PRN ×2 (17:58)
[2020-02-07] MEDS ORDERED: *HR* Dextrose 50 % in Water (Syg) 50 ML SYRINGE IVP PRN (17:58)
[2020-02-07] MEDS ORDERED: D5% in Water 1,000 ML IVC PRN (17:58)
[2020-02-07] MEDS ORDERED: Warfarin perPT PO PRN (18:00)
[2020-02-07] MEDS ORDERED: *HR* Warfarin 1 MG TABLET PO ONE (19:12)
[2020-02-07] MEDS: Azithromycin 500 MG in 0.9 % Sodium Chloride 250 ML IVPB SCH (20:17)
[2020-02-07] MEDS: Famotidine 20 MG/2 ML VIAL IVP SCH (20:17)
[2020-02-07] MEDS: cefTRIAXone 1,000 MG in 0.9 % Sodium Chloride Mini Bag 100 ML IVPB SCH (20:18)
[2020-02-07] MEDS: Insulin LISPRO 300 UNITS/3 ML VIAL SQ SCH (21:21)
[2020-02-08 03:17] LABS: Basophils % 0.2 %; Eosinophils % 0.2 %; Hematocrit 26.9 % (35.3-44.9); Hemoglobin 8.5 g/dL (11.5-15.4); Immature Granulocytes % 0.6 % (0-4); Lymphocytes # 1.4 K/mcL (0.6-4.6); Lymphocytes % 11.9 %; Mean Corpuscular HGB Conc 31.6 g/dL (31.6-35.5); Mean Corpuscular Hemoglobin 29.3 pg (28.0-33.3); Mean Corpuscular Volume 92.8 fL (83.0-100.0); Mean Platelet Volume 10.4 fL (9.4-12.4); Monocytes # 1.1 K/mcL (0.0-1.3); Monocytes % 9.4 %; Neutrophils # 9.4 K/mcL (1.6-8.9); Platelet Count 231 K/mcL (140-400); Red Cell Distribution Width 15.1 % (11.5-14.5); Segmented Neutrophils % 77.7 %; White Blood Count 12.1 K/mcL (4.3-11.1)
[2020-02-08 03:23] LABS: INR 1.5; Prothrombin Time 17.4 Seconds (9.4-12.1)
[2020-02-08] MEDS ORDERED: *HR* HYDROcodone/Acet 7.5/325 mg TABLET PO ONE (03:24)
[2020-02-08 03:37] LABS: Calcium 9.7 mg/dL (8.6-10.3); Potassium 4.4 mEq/L (3.5-5.1)
[2020-02-08 03:52] LABS: Thyroid Stimulating Hormone 0.709 mcIU/mL (0.340-5.600)
[2020-02-08 04:03] LABS: Folate 11.4 ng/mL (3.0-16.0)
[2020-02-08] MEDS: Famotidine 20 MG/2 ML VIAL IVP SCH (05:26)
[2020-02-08 07:05] LABS: Estimated Average Glucose 111 mg/dl
[2020-02-08] MEDS: Insulin LISPRO 300 UNITS/3 ML VIAL SQ SCH ×4 (08:00→19:33)
[2020-02-08] MEDS ORDERED: Furosemide 40 MG TABLET PO SCH (09:00)
[2020-02-08] MEDS: cefTRIAXone 1,000 MG in 0.9 % Sodium Chloride Mini Bag 100 ML IVPB SCH (10:38)
[2020-02-08] MEDS: Acetaminophen 325 MG TABLET PO PRN ×2 (10:38→22:49)
[2020-02-08] MEDS: carvediloL 6.25 MG TABLET PO SCH ×2 (10:40→19:31)
[2020-02-08] MEDS: *HR* OxyCODONE Immed Rel 5 MG TABLET PO PRN ×2 (10:40→22:49)
[2020-02-08] MEDS: Magnesium Oxide 400 MG TABLET PO SCH (10:40)
[2020-02-08] MEDS: Aspirin 81 MG TAB.CHEW PO SCH (10:40)
[2020-02-08] MEDS: Cholecalciferol (D-3) 1,000 UNIT (25MCG) TABLET PO SCH (10:41)
[2020-02-08] MEDS: amLODIPine 5 MG TABLET PO SCH (17:43)
[2020-02-08] MEDS: Azithromycin 500 MG in 0.9 % Sodium Chloride 250 ML IVPB SCH (17:43)
[2020-02-08] MEDS ORDERED: *HR* Warfarin 3 MG TABLET PO ONE (18:00)
[2020-02-09 06:30] LABS: Basophils % 0.4 %; Eosinophils # 0.1 K/mcL (0.0-0.6); Eosinophils % 1.5 %; Hematocrit 26.1 % (35.3-44.9); Immature Granulocytes % 0.5 % (0-4); Lymphocytes # 0.9 K/mcL (0.6-4.6); Lymphocytes % 11.5 %; Mean Corpuscular HGB Conc 30.7 g/dL (31.6-35.5); Mean Corpuscular Hemoglobin 28.9 pg (28.0-33.3); Mean Corpuscular Volume 94.2 fL (83.0-100.0); Mean Platelet Volume 10.8 fL (9.4-12.4); Monocytes # 1.3 K/mcL (0.0-1.3); Neutrophils # 5.2 K/mcL (1.6-8.9); Platelet Count 193 K/mcL (140-400); Red Blood Count 2.77 M/mcL (3.82-4.97); Red Cell Distribution Width 14.9 % (11.5-14.5); Segmented Neutrophils % 69.1 %; White Blood Count 7.5 K/mcL (4.3-11.1)
[2020-02-09 06:44] LABS: INR 1.5
[2020-02-09 07:07] LABS: Calcium 9.1 mg/dL (8.6-10.3); Magnesium 2.2 mg/dL (1.6-2.6); Potassium 4.4 mEq/L (3.5-5.1)
[2020-02-09] MEDS ORDERED: 0.9 % Sodium Chloride 500 ML IV ONE (07:29)
[2020-02-09] MEDS ORDERED: *HR* Heparin 5,000 UNIT/ML VIAL IVP PRN ×2 (07:31)
[2020-02-09] MEDS ORDERED: *HR* Heparin 5,000 UNIT/ML VIAL IVP ONE (07:31)
[2020-02-09] MEDS ORDERED: Heparin 25,000 UNIT/250 ML D5W 25,000 UNIT/250 ML IV.SOLN IVC SCH (07:45)
[2020-02-09] MEDS: Albumin 25% 25gram/100mL 25 GM/100 ML IV.SOLN IVC SCH ×2 (08:40→10:24)
[2020-02-09] MEDS: carvediloL 6.25 MG TABLET PO SCH ×2 (08:41→16:54)
[2020-02-09] MEDS: Insulin LISPRO 300 UNITS/3 ML VIAL SQ SCH ×4 (08:41→22:44)
[2020-02-09] MEDS: Aspirin 81 MG TAB.CHEW PO SCH (08:41)
[2020-02-09] MEDS: Cholecalciferol (D-3) 1,000 UNIT (25MCG) TABLET PO SCH (08:41)
[2020-02-09] MEDS: Magnesium Oxide 400 MG TABLET PO SCH (08:42)
[2020-02-09] MEDS: cefTRIAXone 1,000 MG in Water for inj. (sterile) 10 ML IVP SCH (08:42)
[2020-02-09] MEDS ORDERED: Famotidine 20 MG/2 ML VIAL IVP SCH (09:00)
[2020-02-09 10:35] LABS: Heparin anti-factor XA UFH < 0.04 IU/mL (0.30-0.70)
[2020-02-09 10:36] LABS: INR 1.5; Prothrombin Time 17.3 Seconds (9.4-12.1)
[2020-02-09] MEDS: Acetaminophen 325 MG TABLET PO PRN (12:30)
[2020-02-09] MEDS ORDERED: Leptospermum Honey Paste 1 APPL/5 ML MLS TP SCH (13:15)
[2020-02-09] MEDS: Leptospermum Honey Paste 44 ML TUBE TP SCH (14:33)
[2020-02-09] MEDS ORDERED: *HR* Labetalol 20 MG/4 ML SYRINGE IVP ONE (16:31)
[2020-02-09] MEDS: amLODIPine 5 MG TABLET PO SCH (16:54)
[2020-02-09] MEDS ORDERED: Azithromycin 250 MG TABLET PO SCH (17:00)
[2020-02-09] MEDS ORDERED: *HR* Warfarin 2 MG TABLET PO ONE (18:00)
[2020-02-09] MEDS: hydrALAZINE 25 MG TABLET PO SCH (18:11)
[2020-02-09] MEDS: *HR* Labetalol 20 MG/4 ML SYRINGE IVP ONE ×2 (18:47→18:53)
[2020-02-09] MEDS ORDERED: *HR* Labetalol 20 MG/4 ML SYRINGE IVP PRN (19:39)
[2020-02-09] MEDS: *HR* OxyCODONE Immed Rel 5 MG TABLET PO PRN (21:45)
[2020-02-10] MEDS: hydrALAZINE 25 MG TABLET PO SCH ×2 (01:55→11:01)
[2020-02-10 03:11] LABS: INR 1.6; Prothrombin Time 17.8 Seconds (9.4-12.1)
[2020-02-10 04:03] LABS: Hematocrit 25.8 % (35.3-44.9); Mean Corpuscular Hemoglobin 28.9 pg (28.0-33.3); Mean Corpuscular Volume 93.1 fL (83.0-100.0); Mean Platelet Volume 10.7 fL (9.4-12.4); Platelet Count 172 K/mcL (140-400); Red Blood Count 2.77 M/mcL (3.82-4.97); Red Cell Distribution Width 14.9 % (11.5-14.5); White Blood Count 9.1 K/mcL (4.3-11.1)
[2020-02-10 04:26] LABS: BUN/Creatinine Ratio 26 (6-26); Blood Urea Nitrogen 25 mg/dL (8-23); Calcium 9.8 mg/dL (8.6-10.3); Carbon Dioxide 27 mEq/L (23-29); Chloride 101 mEq/L (98-107); Glucose 106 mg/dL (70-105); Osmolality,Calculated 285 (280-300); Potassium 4.1 mEq/L (3.5-5.1); Sodium 135 mEq/L (136-145); eGFR For African Americans > 60 (> 60); eGFR For Non-African Americans 56 (> 60)
[2020-02-10] MEDS ORDERED: Furosemide 40 MG TABLET PO ONE (07:32)
[2020-02-10] MEDS: Insulin LISPRO 300 UNITS/3 ML VIAL SQ SCH ×2 (08:28→11:49)
[2020-02-10] MEDS: carvediloL 6.25 MG TABLET PO SCH (08:44)
[2020-02-10] MEDS: Magnesium Oxide 400 MG TABLET PO SCH (08:44)
[2020-02-10] MEDS: Aspirin 81 MG TAB.CHEW PO SCH (08:44)
[2020-02-10] MEDS: Cholecalciferol (D-3) 1,000 UNIT (25MCG) TABLET PO SCH (08:45)
[2020-02-10] MEDS: cefTRIAXone 1,000 MG in Water for inj. (sterile) 10 ML IVP SCH (08:47)
[2020-02-10] MEDS: *HR* OxyCODONE Immed Rel 5 MG TABLET PO PRN (08:50)
[2020-02-10] MEDS ORDERED: Famotidine 20 MG TABLET PO SCH (09:00)
[2020-02-10] MEDS ORDERED: *HR* Warfarin 2 MG TABLET PO ONE (11:00)
[2020-02-10] MEDS: Leptospermum Honey Paste 44 ML TUBE TP SCH (11:49)
[2020-02-10 11:52] VITALS: BP 150/63
== END 2020-02-10 14:05 | disposition home or self-care (01) | DRG 871 ==
LOC: EMEROOARM 13:43 → 2NENU 13:43 → SUATTDRO 16:54 → 2NENU 17:54
PROVIDERS: ADMIT Pharmacist; ATTEND Pharmacist

== ENCOUNTER 2020-07-02 15:29 | Inpatient (IN) ==
[2020-07-02 16:28] LABS: INR 2.7; Prothrombin Time 30.3 Seconds (9.4-12.1)
[2020-07-02 16:44] LABS: Albumin 4.1 g/dL (3.5-5.7); Basophils % 0.1 %; Bilirubin,Total 0.6 mg/dL (0.3-1.0); Calcium 9.2 mg/dL (8.6-10.3); Eosinophils % 0.1 %; Globulin 2.1 g/dL (2.4-3.5); Hematocrit 20.3 % (35.3-44.9); Immature Granulocytes % 0.4 % (0-4); Lymphocytes # 0.6 K/mcL (0.6-4.6); Lymphocytes % 8.2 %; Mean Corpuscular HGB Conc 29.6 g/dL (31.6-35.5); Mean Corpuscular Hemoglobin 25.8 pg (28.0-33.3); Mean Corpuscular Volume 87.1 fL (83.0-100.0); Mean Platelet Volume 10.9 fL (9.4-12.4); Monocytes # 0.9 K/mcL (0.0-1.3); Monocytes % 11.7 %; Neutrophils # 6.1 K/mcL (1.6-8.9); Platelet Count 168 K/mcL (140-400); Potassium 4.1 mEq/L (3.5-5.1); Red Blood Count 2.33 M/mcL (3.82-4.97); Red Cell Distribution Width 15.9 % (11.5-14.5); Segmented Neutrophils % 79.5 %; Total Protein 6.2 g/dL (6.4-8.9); White Blood Count 7.7 K/mcL (4.3-11.1)
[2020-07-02] MEDS ORDERED: 0.9 % Sodium Chloride 250 ML ONE (17:22)
[2020-07-02] MEDS ORDERED: Naloxone 0.4 MG/ML INJ IVP PRN (17:51)
[2020-07-02] MEDS ORDERED: Octreotide 400 MCG in 0.9 % Sodium Chloride 100 ML IVC SCH (19:15)
[2020-07-02] MEDS: Pantoprazole 40 MG VIAL IVP SCH (21:49)
[2020-07-02 22:45] LABS: Hematocrit 25.9 % (35.3-44.9)
[2020-07-02 22:50] LABS: Hemoglobin 7.8 g/dL (11.5-15.4)
[2020-07-03] MEDS ORDERED: 0.9 % Sodium Chloride 250 ML ONE (00:55)
[2020-07-03] MEDS ORDERED: Acetaminophen IV 500 MG/50 ML INFUS..BTL IVPB ONE (01:45)
[2020-07-03] MEDS: Pantoprazole 40 MG VIAL IVP SCH (05:02)
[2020-07-03] MEDS ORDERED: Pantoprazole 40 MG VIAL IVP SCH (06:00)
[2020-07-03] MEDS ORDERED: Octreotide 400 MCG in 0.9 % Sodium Chloride 100 ML IVC SCH (06:15)
[2020-07-03 07:28] LABS: Basophils % 0.4 %; Eosinophils % 0.5 %; Hematocrit 30.2 % (35.3-44.9); Immature Granulocytes % 0.5 % (0-4); Lymphocytes # 0.6 K/mcL (0.6-4.6); Lymphocytes % 6.7 %; Mean Corpuscular HGB Conc 31.1 g/dL (31.6-35.5); Mean Corpuscular Hemoglobin 27.3 pg (28.0-33.3); Mean Corpuscular Volume 87.8 fL (83.0-100.0); Mean Platelet Volume 11.7 fL (9.4-12.4); Monocytes # 1.2 K/mcL (0.0-1.3); Monocytes % 14.8 %; Neutrophils # 6.4 K/mcL (1.6-8.9); Platelet Count 179 K/mcL (140-400); Red Blood Count 3.44 M/mcL (3.82-4.97); Red Cell Distribution Width 15.1 % (11.5-14.5); Segmented Neutrophils % 77.1 %; White Blood Count 8.3 K/mcL (4.3-11.1)
[2020-07-03 07:29] LABS: Hemoglobin 9.4 g/dL (11.5-15.4)
[2020-07-03 07:47] LABS: Potassium 4.1 mEq/L (3.5-5.1)
[2020-07-03 07:50] LABS: INR 1.5
[2020-07-03] MEDS ORDERED: Simethicone 40 MG/0.6 ML MLS IR ONE (09:52)
[2020-07-03] MEDS ORDERED: *HR* Vasopressin 20 UNIT/ML VIAL ONE (10:29)
[2020-07-03] MEDS ORDERED: *HR* Propofol 200 MG/20 ML VIAL IVP ONE ×2 (10:38→10:40)
[2020-07-03] MEDS ORDERED: Lidocaine -MPF 2% 2 ML VIAL ONE (10:39)
[2020-07-03] MEDS ORDERED: *HR* HYDROcodone/Acet 7.5/325 mg TABLET PO PRN (13:12)
[2020-07-03] MEDS: Magnesium Oxide 400 MG TABLET PO SCH (13:52)
[2020-07-03 14:12] LABS: Hematocrit 28.6 % (35.3-44.9); Hemoglobin 8.9 g/dL (11.5-15.4)
[2020-07-03] MEDS: Furosemide 40 MG TABLET PO SCH (16:24)
[2020-07-03 20:29] LABS: Hematocrit 30.2 % (35.3-44.9); Hemoglobin 9.5 g/dL (11.5-15.4)
[2020-07-04] MEDS ORDERED: Saline Nasal Spray 44 ML BOTTLE NS PRN (02:02)
[2020-07-04] MEDS ORDERED: *HR* Labetalol 20 MG/4 ML SYRINGE IVP PRN (04:16)
[2020-07-04] MEDS: Furosemide 40 MG TABLET PO SCH (08:08)
[2020-07-04] MEDS: Magnesium Oxide 400 MG TABLET PO SCH (08:08)
[2020-07-04 09:24] LABS: Hematocrit 30.8 % (35.3-44.9); Hemoglobin 9.5 g/dL (11.5-15.4); Mean Corpuscular HGB Conc 30.8 g/dL (31.6-35.5); Mean Corpuscular Hemoglobin 27.1 pg (28.0-33.3); Mean Platelet Volume 11.2 fL (9.4-12.4); Platelet Count 196 K/mcL (140-400); Red Cell Distribution Width 15.5 % (11.5-14.5)
[2020-07-04 09:46] LABS: Calcium 9.7 mg/dL (8.6-10.3)
[2020-07-04 11:31] VITALS: BP 167/79
== END 2020-07-04 13:36 | disposition home or self-care (01) | DRG 378 ==
LOC: EMEROOARM 15:29 → 3ANU 15:29
PROVIDERS: ADMIT Internal Medicine; ATTEND Internal Medicine
PROC: ENDOEBX (2020-07-03 10:00)

== ENCOUNTER 2020-07-16 15:17 | Inpatient (IN) ==
[2020-07-16] MEDS: *HR* Metoprolol 5 MG/5 ML VIAL IVP ONE ×2 (15:49→18:51)
[2020-07-16 15:56] LABS: Basophils % 0.3 %; Eosinophils # 0.1 K/mcL (0.0-0.6); Eosinophils % 0.7 %; Hemoglobin 9.7 g/dL (11.5-15.4); Immature Granulocytes % 0.5 % (0-4); Lymphocytes # 1.1 K/mcL (0.6-4.6); Lymphocytes % 11.2 %; Mean Corpuscular HGB Conc 30.3 g/dL (31.6-35.5); Mean Corpuscular Hemoglobin 26.3 pg (28.0-33.3); Mean Corpuscular Volume 86.7 fL (83.0-100.0); Mean Platelet Volume 10.9 fL (9.4-12.4); Monocytes # 1.1 K/mcL (0.0-1.3); Monocytes % 11.2 %; Neutrophils # 7.6 K/mcL (1.6-8.9); Platelet Count 213 K/mcL (140-400); Red Blood Count 3.69 M/mcL (3.82-4.97); Red Cell Distribution Width 17.3 % (11.5-14.5); Segmented Neutrophils % 76.1 %; White Blood Count 9.9 K/mcL (4.3-11.1)
[2020-07-16 16:14] LABS: Bilirubin,Urine Negative (Negative); Blood,Urine Negative (Negative); Clarity,Urine Clear (Clear); Color,Urine Colorless (Yellow); Glucose,Urine (UA) Normal (Normal); Ketones,Urine Negative (Negative); Leukocyte Esterase,Urine Negative (Negative); Nitrite,Urine Negative (Negative); Protein,Urine Negative (Neg-Trace); Specific Gravity,Urine 1.008 (1.010-1.025); Urobilinogen,Urine Normal (Normal)
[2020-07-16 18:05] LABS: Albumin 4.3 g/dL (3.5-5.7); Albumin/Globulin Ratio 1.7 (1.1-2.2); Bilirubin,Direct 0.2 mg/dL (0.0-0.2); Bilirubin,Indirect 0.4 mg/dL (0.0-1.0); Bilirubin,Total 0.6 mg/dL (0.3-1.0); Calcium 10.1 mg/dL (8.6-10.3); Globulin 2.6 g/dL (2.4-3.5); Potassium 3.9 mEq/L (3.5-5.1); Total Protein 6.9 g/dL (6.4-8.9)
[2020-07-16 18:07] LABS: Troponin I 0.04 ng/mL (< 0.04)
[2020-07-16] MEDS ORDERED: Naloxone 0.4 MG/ML INJ IVP PRN (20:11)
[2020-07-16] MEDS: carvediloL 6.25 MG TABLET PO SCH (21:38)
[2020-07-16] MEDS ORDERED: Cyanocobalamin (B-12) 1,000 MCG/ML VIAL IM SCH (21:45)
[2020-07-16] MEDS: hydrALAZINE 25 MG TABLET PO SCH (22:28)
[2020-07-16] MEDS: *HR* HYDROcodone/Acet 7.5/325 mg TABLET PO PRN (22:28)
[2020-07-16] MEDS ORDERED: hydrALAZINE 10 MG TABLET PO PRN (22:42)
[2020-07-16] MEDS: Aspirin 81 MG TAB.CHEW PO SCH (23:18)
[2020-07-17 07:16] LABS: Hematocrit 29.9 % (35.3-44.9); Mean Corpuscular HGB Conc 30.1 g/dL (31.6-35.5); Mean Corpuscular Hemoglobin 26.4 pg (28.0-33.3); Mean Corpuscular Volume 87.7 fL (83.0-100.0); Platelet Count 196 K/mcL (140-400); Red Blood Count 3.41 M/mcL (3.82-4.97); Red Cell Distribution Width 17.5 % (11.5-14.5); White Blood Count 7.7 K/mcL (4.3-11.1)
[2020-07-17 07:36] LABS: Calcium 9.9 mg/dL (8.6-10.3); Magnesium 2.2 mg/dL (1.6-2.6); Potassium 3.8 mEq/L (3.5-5.1)
[2020-07-17] MEDS: Cholecalciferol (D-3) 1,000 UNIT (25MCG) TABLET PO SCH (09:22)
[2020-07-17] MEDS: hydrALAZINE 25 MG TABLET PO SCH ×3 (09:23→20:27)
[2020-07-17] MEDS: Lactobacillus 1 EACH CAP.SPRINK PO SCH (09:23)
[2020-07-17] MEDS: Furosemide 40 MG TABLET PO SCH (09:23)
[2020-07-17] MEDS: Aspirin 81 MG TAB.CHEW PO SCH (09:24)
[2020-07-17] MEDS: carvediloL 6.25 MG TABLET PO SCH (09:25)
[2020-07-17] MEDS: *HR* HYDROcodone/Acet 7.5/325 mg TABLET PO PRN ×2 (09:29→18:33)
[2020-07-17] MEDS: carvediloL 25 MG TABLET PO SCH (20:27)
[2020-07-18 01:45] LABS: Hematocrit 29.2 % (35.3-44.9); Hemoglobin 8.8 g/dL (11.5-15.4)
[2020-07-18 02:06] LABS: Calcium 9.7 mg/dL (8.6-10.3); Magnesium 2.2 mg/dL (1.6-2.6); Phosphorous 4.6 mg/dL (2.7-4.5)
[2020-07-18] MEDS: *HR* HYDROcodone/Acet 7.5/325 mg TABLET PO PRN (08:50)
[2020-07-18] MEDS: hydrALAZINE 25 MG TABLET PO SCH (08:50)
[2020-07-18] MEDS: Lactobacillus 1 EACH CAP.SPRINK PO SCH (08:50)
[2020-07-18] MEDS: Cholecalciferol (D-3) 1,000 UNIT (25MCG) TABLET PO SCH (08:50)
[2020-07-18] MEDS: Aspirin 81 MG TAB.CHEW PO SCH (08:50)
[2020-07-18] MEDS: Furosemide 40 MG TABLET PO SCH (08:50)
[2020-07-18] MEDS: carvediloL 25 MG TABLET PO SCH (08:50)
[2020-07-18] MEDS ORDERED: polyethylene glycoL 3350 17 GM POWD.PACK PO SCH ×4 (09:00→21:00)
[2020-07-18] MEDS ORDERED: Spironolactone 25 MG TABLET PO SCH (09:15)
[2020-07-18 10:46] LABS: Hematocrit 27.6 % (35.3-44.9); Hemoglobin 8.2 g/dL (11.5-15.4)
[2020-07-18 11:16] VITALS: BP 163/73
== END 2020-07-18 13:48 | disposition home health service (06) | DRG 281 ==
LOC: 2ANU 15:17 → EMEROOARM 15:17 → SUATTDRO 19:53 → 2ANU 20:54
PROVIDERS: ADMIT Internal Medicine; ATTEND Internal Medicine

== ENCOUNTER 2020-08-28 13:22 | Inpatient (IN) ==
[2020-08-28] MEDS ORDERED: Isovue-370 500 ML BOTTLE IVP ONE (13:37)
[2020-08-28 14:02] LABS: Basophils % 0.1 %; Eosinophils % 0.1 %; Hematocrit 36.1 % (35.3-44.9); Hemoglobin 11.4 g/dL (11.5-15.4); Immature Granulocytes % 0.6 % (0-4); Lymphocytes # 0.5 K/mcL (0.6-4.6); Mean Corpuscular HGB Conc 31.6 g/dL (31.6-35.5); Mean Corpuscular Hemoglobin 28.6 pg (28.0-33.3); Mean Corpuscular Volume 90.7 fL (83.0-100.0); Mean Platelet Volume 11.3 fL (9.4-12.4); Monocytes # 0.8 K/mcL (0.0-1.3); Platelet Count 101 K/mcL (140-400); Red Blood Count 3.98 M/mcL (3.82-4.97); Red Cell Distribution Width 20.1 % (11.5-14.5); Segmented Neutrophils % 81.2 %; White Blood Count 7.2 K/mcL (4.3-11.1)
[2020-08-28 14:03] LABS: Neutrophils # 5.9 K/mcL (1.6-8.9)
[2020-08-28 14:32] LABS: Alanine Aminotransferase 18 Units/L (7-52); Albumin 4.2 g/dL (3.5-5.7); Albumin/Globulin Ratio 1.6 (1.1-2.2); Alkaline Phosphatase 116 Units/L (34-104); Aspartate Amino Transferase 20 Units/L (13-39); BUN/Creatinine Ratio 25 (6-26); Bilirubin,Direct 0.3 mg/dL (0.0-0.2); Bilirubin,Indirect 0.5 mg/dL (0.0-1.0); Bilirubin,Total 0.8 mg/dL (0.3-1.0); Blood Urea Nitrogen 57 mg/dL (8-23); Carbon Dioxide 22 mEq/L (23-29); Chloride 86 mEq/L (98-107); Globulin 2.6 g/dL (2.4-3.5); Glucose 143 mg/dL (70-105); Lipase 37 Units/L (11-82); Magnesium 2.2 mg/dL (1.6-2.6); Osmolality,Calculated 268 (280-300); Potassium 4.5 mEq/L (3.5-5.1); Sodium 120 mEq/L (136-145); Total Protein 6.8 g/dL (6.4-8.9); Troponin I < 0.03 ng/mL (< 0.04); eGFR For African Americans 24 (> 60); eGFR For Non-African Americans 20 (> 60)
[2020-08-28 14:54] LABS: Bilirubin,Urine Negative (Negative); Blood,Urine Negative (Negative); Clarity,Urine Clear (Clear); Color,Urine Colorless (Yellow); Glucose,Urine (UA) Normal (Normal); Ketones,Urine Negative (Negative); Leukocyte Esterase,Urine Negative (Negative); Nitrite,Urine Negative (Negative); PH,Urine 6.5 pH Units (5.0-8.0); Protein,Urine Negative (Neg-Trace); Specific Gravity,Urine 1.006 (1.010-1.025); Urobilinogen,Urine Normal (Normal)
[2020-08-28] MEDS ORDERED: *HR* HYDROcodone/Acet 5/325 mg TABLET PO ONE (17:12)
[2020-08-28] MEDS ORDERED: Naloxone 0.4 MG/ML INJ IVP PRN (17:16)
[2020-08-28] MEDS ORDERED: Acetaminophen 325 MG TABLET PO PRN (17:16)
[2020-08-28] MEDS ORDERED: Ondansetron 4 MG/2 ML VIAL IVP PRN (17:16)
[2020-08-28] MEDS ORDERED: Furosemide 40 MG/4 ML VIAL IVP ONE (18:18)
[2020-08-28 18:29] LABS: Sodium, Urine 35.6 mEq/L
[2020-08-28] MEDS: 0.9 % Sodium Chloride 1,000 ML IVC SCH (18:51)
[2020-08-28] MEDS: hydrALAZINE 25 MG TABLET PO SCH (19:55)
[2020-08-29 01:19] LABS: Basophils % 0.2 %; Eosinophils % 0.2 %; Hematocrit 32.6 % (35.3-44.9); Hemoglobin 10.5 g/dL (11.5-15.4); Immature Granulocytes % 0.3 % (0-4); Lymphocytes # 0.5 K/mcL (0.6-4.6); Lymphocytes % 7.9 %; Mean Corpuscular HGB Conc 32.2 g/dL (31.6-35.5); Mean Corpuscular Hemoglobin 29.1 pg (28.0-33.3); Mean Corpuscular Volume 90.3 fL (83.0-100.0); Mean Platelet Volume 11.3 fL (9.4-12.4); Monocytes # 0.9 K/mcL (0.0-1.3); Monocytes % 14.3 %; Neutrophils # 5.1 K/mcL (1.6-8.9); Red Blood Count 3.61 M/mcL (3.82-4.97); Red Cell Distribution Width 19.9 % (11.5-14.5); Segmented Neutrophils % 77.1 %; White Blood Count 6.6 K/mcL (4.3-11.1)
[2020-08-29 01:21] LABS: Platelet Count 93 K/mcL (140-400)
[2020-08-29] MEDS: *HR* HYDROcodone/Acet 7.5/325 mg TABLET PO PRN ×3 (01:21→16:37)
[2020-08-29 01:40] LABS: Magnesium 2.1 mg/dL (1.6-2.6); Phosphorous 3.9 mg/dL (2.7-4.5)
[2020-08-29 01:41] LABS: Calcium 7.8 mg/dL (8.6-10.3); Potassium 4.6 mEq/L (3.5-5.1)
[2020-08-29] MEDS: *HR* Heparin 5,000 UNIT/ML VIAL SQ SCH ×2 (06:04→16:38)
[2020-08-29] MEDS: carvediloL 25 MG TABLET PO SCH ×2 (07:35→16:37)
[2020-08-29] MEDS: hydrALAZINE 25 MG TABLET PO SCH ×3 (07:35→19:23)
[2020-08-29 08:14] LABS: Calcium 7.7 mg/dL (8.6-10.3); Potassium 4.8 mEq/L (3.5-5.1)
[2020-08-29] MEDS ORDERED: polyethylene glycoL 3350 17 GM POWD.PACK PO PRN (15:55)
[2020-08-29] MEDS: 0.9 % Sodium Chloride 1,000 ML IVC SCH (16:16)
[2020-08-29] MEDS: Sodium Bicarbonate 75 MEQ in 0.45 % Sodium Chloride 1,000 ML IVC SCH (19:23)
[2020-08-29 22:52] LABS: Calcium 8.3 mg/dL (8.6-10.3); Potassium 4.8 mEq/L (3.5-5.1)
[2020-08-30] MEDS: *HR* HYDROcodone/Acet 7.5/325 mg TABLET PO PRN ×4 (04:40→23:34)
[2020-08-30] MEDS: *HR* Heparin 5,000 UNIT/ML VIAL SQ SCH ×2 (05:09→17:34)
[2020-08-30 05:20] LABS: Basophils % 0.4 %; Eosinophils % 0.4 %; Hemoglobin 10.5 g/dL (11.5-15.4); Immature Granulocytes % 0.4 % (0-4); Lymphocytes # 0.5 K/mcL (0.6-4.6); Lymphocytes % 8.9 %; Mean Corpuscular HGB Conc 32.8 g/dL (31.6-35.5); Mean Corpuscular Hemoglobin 29.7 pg (28.0-33.3); Mean Corpuscular Volume 90.4 fL (83.0-100.0); Mean Platelet Volume 10.7 fL (9.4-12.4); Monocytes # 0.9 K/mcL (0.0-1.3); Monocytes % 16.6 %; Neutrophils # 3.8 K/mcL (1.6-8.9); Red Blood Count 3.54 M/mcL (3.82-4.97); Red Cell Distribution Width 19.8 % (11.5-14.5); Segmented Neutrophils % 73.3 %; White Blood Count 5.2 K/mcL (4.3-11.1)
[2020-08-30 05:30] LABS: Platelet Count 95 K/mcL (140-400)
[2020-08-30 05:36] LABS: Calcium 8.2 mg/dL (8.6-10.3); Potassium 4.3 mEq/L (3.5-5.1)
[2020-08-30] MEDS: Cholecalciferol (D-3) 1,000 UNIT (25MCG) TABLET PO SCH (08:02)
[2020-08-30] MEDS: Magnesium Oxide 400 MG TABLET PO SCH (08:02)
[2020-08-30] MEDS: hydrALAZINE 25 MG TABLET PO SCH ×3 (08:02→19:46)
[2020-08-30] MEDS: carvediloL 25 MG TABLET PO SCH ×2 (08:02→17:33)
[2020-08-30] MEDS: Sodium Bicarbonate 75 MEQ in 0.45 % Sodium Chloride 1,000 ML IVC SCH (15:52)
[2020-08-31 04:15] LABS: Hemoglobin 9.7 g/dL (11.5-15.4); Immature Granulocytes % 0.3 % (0-4)
[2020-08-31 04:17] LABS: Basophils % 0.2 %; Eosinophils % 0.2 %; Hematocrit 30.4 % (35.3-44.9); Immature Platelets 4.9 % (1.1-6.1); Lymphocytes # 0.5 K/mcL (0.6-4.6); Lymphocytes % 7.8 %; Mean Corpuscular HGB Conc 31.9 g/dL (31.6-35.5); Mean Corpuscular Hemoglobin 29.5 pg (28.0-33.3); Mean Corpuscular Volume 92.4 fL (83.0-100.0); Mean Platelet Volume 10.8 fL (9.4-12.4); Monocytes % 17.5 %; Neutrophils # 4.3 K/mcL (1.6-8.9); Red Blood Count 3.29 M/mcL (3.82-4.97); White Blood Count 5.8 K/mcL (4.3-11.1)
[2020-08-31 04:19] LABS: Platelet Count 83 K/mcL (140-400)
[2020-08-31 04:35] LABS: Potassium 4.3 mEq/L (3.5-5.1)
[2020-08-31] MEDS: *HR* Heparin 5,000 UNIT/ML VIAL SQ SCH (05:01)
[2020-08-31] MEDS: *HR* HYDROcodone/Acet 7.5/325 mg TABLET PO PRN (06:01)
[2020-08-31] MEDS: Magnesium Oxide 400 MG TABLET PO SCH (08:54)
[2020-08-31] MEDS: Cholecalciferol (D-3) 1,000 UNIT (25MCG) TABLET PO SCH (08:55)
[2020-08-31] MEDS: hydrALAZINE 25 MG TABLET PO SCH (08:55)
[2020-08-31] MEDS: carvediloL 25 MG TABLET PO SCH (08:55)
[2020-08-31 11:02] VITALS: BP 99/62
[2020-09-03] MEDS ORDERED: Cyanocobalamin (B-12) 1,000 MCG/ML VIAL IM SCH (09:00)
== END 2020-08-31 15:01 | disposition home or self-care (01) | DRG 683 ==
LOC: 2ANU 13:22 → EMEROOARM 13:22 → SUATTDRO 17:19 → 2ANU 18:41
PROVIDERS: ADMIT General Practice; ATTEND Internal Medicine